=== PATIENT | female | born 1945 | race Caucasian/White ===

== ENCOUNTER → 2018-04-12 | Outpatient (CLI) | payer MEDICARE, OTHER ==
[2018-04-12 12:05] VITALS: BP 154/70; PULSE 68; RESP 18
--- NOTE | 2018-04-12 12:22 | P.PN ---
Progress Note - Text Progress Note Date: 04/12/18 Patient returns for followup for chronic neck pain with radiation to the head, bilateral shoulders, and left arm. Patient was last seen in our clinic in May 2015; she had previous relief with cervical RFA done in 2012 but not with subsequent CESIs and LESIs, and underwent R hip replacement in the meantime. Patient takes only gabapentin for pain with some relief. Patient denies adverse drug effects from medications. Today, pt denies new-onset weakness, bowel/bladder incontinence, or any other signs or symptoms of cauda equina syndrome. There are no signs of acute intoxication, and no indications of medication diversion or overuse. In addition to above, 13-point review of systems is also negative for chest pain , shortness of breath, changes in vision, changes in hearing, new onset weakness , abdominal pain, diarrhea, extreme fatigue, malaise, fever, skin changes, homicidal or suicidal ideation, or bowel or bladder incontinence. Vital Signs: Reviewed in EMR Gen: WDWN, AAOx3, NAD HEENT: NCAT, EOMI, hearing grossly normal Pulm: resp unlabored Abd: soft, NT, ND Neck: supple, trachea midline +cervical facet tenderness bilateral, L > R Imaging: MRI C-spine demonstrates cervical spondylosis at several levels along with right neural foraminal narrowing at C5-C6 level. Assessment: 1. cervical spondylosis with myelopathy 2. cervicogenic headache 3. chronic pain syndrome Plan: 1. Explanation: Opioid and psychological risk scores were reviewed. Diagnoses , prognoses, and multiple treatment options including but not limited to physical therapy, interventional therapies, adjuvant medical therapies, narcotic medication therapies, and surgery were discussed with the patient and all questions were answered to the patient's satisfaction. 2. Opioid agreement: none prescribed 3. Counseling: The patient was counseled extensively on BODY MASS INDEX, EXERCISE. Specifically, the patient was instructed regarding the importance of weight control, and exercise in the context of both chronic pain and overall health. 4. Procedures: cervical MBB bilateral C3-C6 if possible 5. Consultations: None 6. Investigations: UDS not done, MAPS queried and appropriate 7. Medications: none prescribed 8. Morphine equivalents per day prescribed: zero 9. Disposition: f/u for procedure as scheduled PQRS measures: 1-Patient's medications are documented in the chart. 2-Tobacco use is negative 3-Patient has not had a pneumococcal vaccine. 4-Advanced care planning discussed, patient unable to give. 5-Opioid contract NOT signed with the patient. 6-Pain positive, follow-up visit or procedure scheduled 7-Patient's blood pressure measured and documented, and patient will follow up with the primary care due to hypertension. 8-Patient's weight was measured, and body mass index ABOVE the normal limits, and counseling was done. Patient instructed to follow up with PCP. 9-Patient WAS NOT identified as an unhealthy alcohol user.
== END | disposition home or self-care (01) ==
LOC: PNWHC3 11:33
PROVIDERS: ATTEND Anesthesiology
DX: G89.4 Chronic pain syndrome (principal); M54.2 Cervicalgia; M47.12 Other spondylosis with myelopathy, cervical region; R51 Headache; Z96.641 Presence of right artificial hip joint; Z79.891 Long term (current) use of opiate analgesic
CPT/HCPCS: 99211

== ENCOUNTER 2018-04-20 09:19 | Day surgery (SDC) | payer MEDICARE, OTHER ==
[~2018-04-20 09:19] MED LIST: LACTATED RINGERS 1,000 ML IV SCH
[2018-04-20 09:41] VITALS: RESP 18
[2018-04-20 09:47] VITALS: TEMP 97.9
[2018-04-20] MEDS ORDERED: LIDOCAINE 1% 20 ML VIAL (10MG/ML) FOR IV START INTRADERMA ONE (09:47)
[2018-04-20 09:48] LABS: Glucose,Whole Blood 90 mg/dL (75-99)
[2018-04-20] MEDS ORDERED: IV FLUID CONTINUATION 1,000 ML IV ONE (10:26)
[2018-04-20 10:27] VITALS: BP 125/77; PULSE 74
--- NOTE | 2018-04-20 10:47 | FL ---
EXAMINATION TYPE: FL guided pain mgmt statistic DATE OF EXAM: 04/20/2018 CLINICAL HISTORY: Neck pain. TECHNIQUE: Fluoroscopy. COMPARISON: None. FINDINGS: Fluoroscopic guidance was provided during pain relief procedure performed by Dr. Chacko . A total of 19 seconds of fluoroscopic time was utilized during the procedure and 3 spot images are a cquired. Images acquired shows needle localization in the cervical spine. IMPRESSION: As Above.
--- NOTE | 2018-04-25 09:06 | P.PCN ---
Date of Procedure: 04/20/18 Description of Procedure: Diagnostic C3, C4, C5, C6 bilateral medial branch block Date of the procedure: PREOPERATIVE DIAGNOSIS: Cervical spondylosis POSTOPERATIVE DIAGNOSIS: Cervical spondylosis PROCEDURE: Diagnostic C3, C4, C5, C6 bilateral medial branch block Surgeon: Ginna ANESTHESIA: Local with 1% lidocaine; IV sedation with Versed mg and Fentanyl mcg. EBL: Minimal COMPLICATION: None. IV FLUIDS: 100 mL of normal saline. PROCEDURE INDICATION: Chronic low back pain secondary to Facet arthropathy unresponsive to conservative treatment. PROCEDURE DESCRIPTION: The patient was seen and identified in the preoperative area. Risks, benefits, complications, and alternatives were discussed with the patient. The patient agreed to proceed with the procedure and signed the consent. IV was started. Vital signs were stable throughout the procedure. The patient was taken to the procedure room and was placed in the prone position on the procedure table. The cervical spine area was prepped and draped in the usual sterile fashion. Critical pause was taken. Using lateral fluoroscopy, the C3, C4, C5, C6, vertebra were identified, the trapezoid at each vertebral level were then identified and marked. Subsequently , a 25-gauge, 3.5-inch spinal needle was advanced under fluoroscopic guidance until contact was made with periosteum in the middle of the trapezoid of C3, C4 , C5, C6. At this point, 1 mL of block solution containing a mixture of dexamethasone 10 mg and 5 mL of 0.5% preservative-free Bupivacaine was injected after negative aspiration for blood and CSF and blood and in the absence of paresthesias. The needle was subsequently removed and the same procedure was repeated at all levels bilateral. At the end of the procedure, skin was cleansed, and bandages were applied. The patient tolerated the procedure well without complications. Patient was observed in the recovery area until he/she met all discharge criteria. VAS preoperative: 6/10 VAS postop: 0/10
== END 2018-04-20 10:50 | disposition home or self-care (01) ==
LOC: ORPAIN 09:19
PROVIDERS: ATTEND Anesthesiology
DX: M47.812 Spondylosis without myelopathy or radiculopathy, cervical region (principal); G89.29 Other chronic pain; M54.5 Low back pain; M46.90 Unspecified inflammatory spondylopathy, site unspecified; Z88.1 Allergy status to other antibiotic agents; Z91.040 Latex allergy status; Z88.5 Allergy status to narcotic agent; Z88.8 Allergy status to other drugs, medicaments and biological substances; Z91.048 Other nonmedicinal substance allergy status
CPT/HCPCS: 64490; 64491; 64492; J2250; J1100; 99152

== ENCOUNTER 2018-05-09 07:29 | Day surgery (SDC) | payer MEDICARE, OTHER ==
[2018-05-03 15:11] VITALS: BMI 25.4
--- NOTE | 2018-05-09 08:31 | P.HPIM ---
History of Present Illness H&P Date: 05/09/18 72-year-old female presents for bilateral cervical medial branch blocks secondary to cervical spondylosis. VAS 6/10 severity bilateral positive Spurling test Review of Systems 14 point review of system was done positive for fatigue, neck pain. Past Medical History Past Medical History: Fibromyalgia, GERD/Reflux, Musculoskeletal Disorder, Osteoarthritis (OA), Seizure Disorder, Thyroid Disorder Additional Past Medical History / Comment(s): Ringing in ears, Thyroid nodules, Hypoglycemia, migraines, enlarged aorta, sinus problems, ibs, endometriosis, fibroids, back pain, last seizure 2005 History of Any Multi-Drug Resistant Organisms: None Reported Past Surgical History: Breast Surgery, Cholecystectomy, Hysterectomy, Orthopedic Surgery Additional Past Surgical History / Comment(s): sinus, colonoscopy, laparoscopy , D&C, carpal tunnel Right, arthroscopic bilateral knees, galen Knee replacement- rt knee x2, Right rotator cuff, Bilateral mastectomy, pain clinic procedures. rt. hip. arthropscopy, prolapsed urethra surg./rt hip replacement/c spine fusion Past Anesthesia/Blood Transfusion Reactions: No Reported Reaction Smoking Status: Never smoker Medications and Allergies Home Medications Medication Instructions Recorded Confirmed Type Aspirin 81 mg PO DAILY 04/23/14 05/03/18 History Multivitamin [Children's 1 tab PO DAILY 04/23/14 05/03/18 History Multivitamins] Simvastatin [Zocor] 40 mg PO HS 04/23/14 05/03/18 History Cetirizine HCl [Zyrtec] 10 mg PO DAILY PRN 05/23/14 05/03/18 History [place]-3 Fatty Acids [[place]-3] 1,000 mg PO BID 05/23/14 05/03/18 History Estradiol Cream [Estrace Cream] 1 cream TOPICAL Q3D 02/24/15 05/03/18 History Magnesium 400 mg PO DAILY 03/03/15 05/03/18 History Gabapentin [Neurontin] 300 mg PO BID 04/12/18 05/03/18 History Pramipexole [Mirapex] 0.5 mg PO DAILY 04/12/18 05/03/18 History Allergies Allergy/AdvReac Type Severity Reaction Status Date / Time erythromycin base Allergy Nausea Verified 05/03/18 15:06 [Erythromycin Base] topiramate [From Topamax] Allergy Itching Verified 05/03/18 15:06 codeine AdvReac Hallucinati Verified 05/03/18 15:06 ons Latex, Natural Rubber AdvReac Rash/Hives Verified 05/03/18 15:06 nortriptyline HCl AdvReac tremors Verified 05/03/18 15:06 [From Pamelor] pregabalin [From Lyrica] AdvReac very Verified 05/03/18 15:06 sleepy feeling tramadol AdvReac Unknown Verified 05/03/18 15:06 TRACE METALS Allergy PAIN AND Uncoded 05/03/18 15:06 SWELLING OF TISSUES TO KNEE WITH TOT KNEE REPLACE. morphine IM AdvReac red Uncoded 05/03/18 15:06 streaking @site tape AdvReac Rash/Hives Uncoded 05/03/18 15:06 Physical Exam - Respiratory Respiratory: negative: CTA - Cardiovascular Rhythm: regular Heart sounds: normal: S1, S2 Assessment and Plan Assessment: Assessment: Cervical spondylosis Plan: Bilateral medial branch block of the cervical spine
--- NOTE | 2018-05-09 08:33 | P.PCN ---
Date of Procedure: 05/09/18 Description of Procedure: Description of Procedure: Diagnostic C3, C4, C5, C6 bilateral medial branch block Date of the procedure: PREOPERATIVE DIAGNOSIS: Cervical spondylosis POSTOPERATIVE DIAGNOSIS: Cervical spondylosis PROCEDURE: Diagnostic C3, C4, C5, C6 bilateral medial branch block Surgeon: MD Ginna. ANESTHESIA: Local with 1% lidocaine; IV sedation with Versed 1 mg and Fentanyl 50 mcg. EBL: Minimal COMPLICATION: None. IV FLUIDS: 100 mL of normal saline. PROCEDURE INDICATION: Chronic low back pain secondary to Facet arthropathy unresponsive to conservative treatment. PROCEDURE DESCRIPTION: The patient was seen and identified in the preoperative area. Risks, benefits, complications, and alternatives were discussed with the patient. The patient agreed to proceed with the procedure and signed the consent. IV was started. Vital signs were stable throughout the procedure. The patient was taken to the procedure room and was placed in the prone position on the procedure table. The cervical spine area was prepped and draped in the usual sterile fashion. Critical pause was taken. Using lateral fluoroscopy, the C3, C4, C5, C6, vertebra were identified, the trapezoid at each vertebral level were then identified and marked. Subsequently , a 25-gauge, 3.5-inch spinal needle was advanced under fluoroscopic guidance until contact was made with periosteum in the middle of the trapezoid of C3, C4 , C5, C6. At this point, 1 mL of block solution containing a mixture of dexamethasone 10 mg and 5 mL of 0.5% preservative-free Bupivacaine was injected after negative aspiration for blood and CSF and blood and in the absence of paresthesias. The needle was subsequently removed and the same procedure was repeated at all levels bilateral. At the end of the procedure, skin was cleansed, and bandages were applied. The patient tolerated the procedure well without complications. Patient was observed in the recovery area until he/she met all discharge criteria. VAS preoperative: 6/10 VAS postop:
[2018-05-09 08:38] VITALS: RESP 18; TEMP 97
[2018-05-09] MEDS ORDERED: LACTATED RINGERS 1,000 ML IV ONE (08:57)
[2018-05-09] MEDS ORDERED: LIDOCAINE 1% 20 ML VIAL (10MG/ML) FOR IV START INTRADERMA ONE (08:57)
[2018-05-09 09:13] LABS: Glucose,Whole Blood 87 mg/dL (75-99)
--- NOTE | 2018-05-09 10:16 | FL ---
EXAMINATION TYPE: FL guided pain mgmt statistic DATE OF EXAM: 05/09/2018 COMPARISON: NONE HISTORY: Neck pain TECHNIQUE: Fluoroscopy. FINDINGS/IMPRESSION: Fluoroscopic guidance was provided during procedure performed by Dr. Chacko. A total of 10 seconds of fluoroscopic time was utilized during the procedure and 4 spot images was acq uired demonstrating localization of the cervical spine.
[2018-05-09 10:20] VITALS: BP 138/78; PULSE 65
[2018-05-09] MEDS ORDERED: IV FLUID CONTINUATION 1,000 ML IV ONE (10:20)
== END 2018-05-09 10:26 | disposition home or self-care (01) ==
LOC: ORPAIN 07:29
PROVIDERS: ATTEND Anesthesiology
DX: G89.4 Chronic pain syndrome (principal); M47.12 Other spondylosis with myelopathy, cervical region; I10 Essential (primary) hypertension; M79.7 Fibromyalgia; K21.9 Gastro-esophageal reflux disease without esophagitis; M19.90 Unspecified osteoarthritis, unspecified site; G40.909 Epilepsy, unspecified, not intractable, without status epilepticus; E04.1 Nontoxic single thyroid nodule; G43.909 Migraine, unspecified, not intractable, without status migrainosus; Z96.653 Presence of artificial knee joint, bilateral; Z96.641 Presence of right artificial hip joint; Z79.899 Other long term (current) drug therapy; Z79.82 Long term (current) use of aspirin; Z88.1 Allergy status to other antibiotic agents; Z88.8 Allergy status to other drugs, medicaments and biological substances; Z91.048 Other nonmedicinal substance allergy status
CPT/HCPCS: 64490; 64491; 64492; J2250; J3301; 99152

== ENCOUNTER → 2018-05-29 | Outpatient (CLI) | payer MEDICARE, OTHER ==
[2018-05-29 12:23] VITALS: BP 143/73; PULSE 72; RESP 20
--- NOTE | 2018-05-29 12:35 | P.PN ---
Subjective This is a 72-year-old female with history of neck pain with radiation to the shoulders and down the left arm to the hand. She is numbness in the left hand.. She had complete relief of pain for at least 2 days after the last cervical medial branch block. Patient denies adverse drug effects from medications. Today, pt denies new- onset weakness, bowel/bladder incontinence, or any other signs or symptoms of cauda equina syndrome. There are no signs of acute intoxication, and no indications of medication diversion or overuse. In addition to above, 13-point review of systems is also negative for chest pain , shortness of breath, changes in vision, changes in hearing, new onset weakness , abdominal pain, diarrhea, extreme fatigue, malaise, fever, skin changes, homicidal or suicidal ideation, or bowel or bladder incontinence. Vital Signs: Reviewed in EMR Gen: WDWN, AAOx3, NAD HEENT: NCAT, EOMI, hearing grossly normal Pulm: resp unlabored Neuro exam of the upper extremities showed normal and symmetrical muscle strength but absent deep tendon reflexes symmetrically She has tenderness in the mid thoracic and upper lumbar paravertebral musculature Neck: supple, trachea midline +cervical facet tenderness bilateral, L > R Imaging: MRI C-spine demonstrates cervical spondylosis at several levels along with right neural foraminal narrowing at C5-C6 level. Assessment: 1. cervical spondylosis with myelopathy 2. cervicogenic headache 3. chronic pain syndrome Plan: 1. Explanation: Opioid and psychological risk scores were reviewed. Diagnoses , prognoses, and multiple treatment options including but not limited to physical therapy, interventional therapies, adjuvant medical therapies, narcotic medication therapies, and surgery were discussed with the patient and all questions were answered to the patient's satisfaction. 2. Opioid agreement: none prescribed 3. Counseling: The patient was counseled extensively on BODY MASS INDEX, EXERCISE. Specifically, the patient was instructed regarding the importance of weight control, and exercise in the context of both chronic pain and overall health. 4. Procedures: For left cervical medial branch RFA under fluoroscopic guidance for the levels tested previouslyC3 to C6. Also we will do trigger point injection in the lower thoracic and lumbar paravertebral musculature. 5. Consultations: None 6. Investigations: UDS not done, MAPS queried and appropriate 7. Medications: none prescribed 8. Morphine equivalents per day prescribed: zero 9. Disposition: f/u for procedure as scheduled PQRS measures: 1-Patient's medications are documented in the chart. 2-Tobacco use is negative 3-Patient has not had a pneumococcal vaccine. 4-Advanced care planning discussed, patient unable to give. 5-Opioid contract NOT signed with the patient. 6-Pain positive, follow-up visit or procedure scheduled 7-Patient's blood pressure measured and documented, and patient will follow up with the primary care due to hypertension. 8-Patient's weight was measured, and body mass index ABOVE the normal limits, and counseling was done. Patient instructed to follow up with PCP. 9-Patient WAS NOT identified as an unhealthy alcohol user. Objective - Vital Signs Vital signs: Vital Signs Temp Pulse 72 05/29/18 12:19 Resp 20 05/29/18 12:19 BP 143/73 05/29/18 12:19 Pulse Ox 99 05/29/18 12:19 Intake & Output 05/28/18 05/29/18 05/29/18 18:59 06:59 18:59 Weight 67.132 kg
== END | disposition home or self-care (01) ==
LOC: PNWHC3 12:08
PROVIDERS: ATTEND Anesthesiology
DX: G89.4 Chronic pain syndrome (principal); M47.12 Other spondylosis with myelopathy, cervical region; R51 Headache
CPT/HCPCS: 99211

== ENCOUNTER 2018-06-08 06:23 | Day surgery (SDC) | payer MEDICARE, OTHER ==
[2018-06-06 09:27] VITALS: BMI 25.4
[2018-06-08 06:54] VITALS: RESP 16; TEMP 97.8
[2018-06-08] MEDS ORDERED: LIDOCAINE 1% 20 ML VIAL (10MG/ML) FOR IV START INTRADERMA ONE (06:56)
[2018-06-08 07:11] LABS: Glucose,Whole Blood 93 mg/dL (75-99)
--- NOTE | 2018-06-08 07:47 | FL ---
Fluoroscopy INDICATION: Pain FINDINGS: Fluoroscopy time: 16 seconds. Images obtained: 2. IMPRESSIONS: 1. Documentation of fluoroscopy.
--- NOTE | 2018-06-08 07:50 | P.PCN ---
Date of Procedure: 06/08/18 Surgeon: Alyson Blue Pathology: none sent Condition: stable Disposition: PACU Description of Procedure: PREOPERATIVE DIAGNOSIS: Cervical spondylosis with Facet Arthropathy without myelopathy, myofascial pain POSTOPERATIVE DIAGNOSIS: Cervical spondylosis with Facet Arthropathy without myelopathy, myofascial pain PROCEDURES: left Radiofrequency thermocoagulation, C3,C4,C5, and C6, medial branch with Fluroscopy [place]. Trigger point injection in the cervical thoracic and lumbar paravertebral musculature ANESTHESIA: Local with 1% lidocaine; IV sedation with fentanyl and Versed. EBL: Minimal PROCEDURE INDICATION: The patient with neck pain secondary to cervical arthropathy who had more than 50% relief of her pain with previous diagnostic cervical medial branch block. PROCEDURE DESCRIPTION / TECHNIQUE: The patient was seen and identified in the preoperative area. Risks, benefits, complications, and alternatives were discussed with the patient, the patient agreed to proceed with the procedure and signed the consent. IV was started. Vital signs remained stable throughout the procedure. Patient was taken to the OR and time out was completed. The patient was placed in the prone position on the procedure table. A pillow was placed under the patients chest to increase the cervical interlaminar space. The cervical area was prepped and draped in the usual sterile fashion. Critical pause was taken. Vital signs were closely monitored during the procedure. Conscious sedation was used during the procedure to decrease patients anxiety. Using cross-table lateral fluoroscopy, the center of the trapezoid-shaped cervical pillars of C3,C4, C5, and C6 on the left side were identified, marked , and localized with 1% lidocaine. Subsequently, a 20 [id number] radiofrequency cannula with a 10-mm active tip was advanced guided by fluoroscopy to the target points mentioned above. . Each site then underwent motor testing at 2 Hz and 0 to 3 volt with local stimulation, but no radicular symptoms down the arm. Thereafter C5 ,C6 and C7 sites underwent radiofrequency thermocoagulation at 80 degrees celsius for 90 seconds after injecting 0.5 ml of PF lidocaine 1%. After thermocoagulation, 1 ml of the block solution containing Kenalog 40 mg mg and 2 mL of preservative-free normal saline was injected at the C3,C4,C5,and C6 levels after negative aspiration of CSF and blood and with no paresthesias. Cannulas were retracted. Skin was cleansed and bandages were applied. Then I turned my attention into doing the trigger point injections in the right trapezius muscle and right cervical paravertebral musculature and right thoracic paravertebral musculature and right lumbar paravertebral musculature with a total of 10 of these trigger points I gave 1 mL of ropivacaine at each trigger point with 2 mg of Kenalog. COMPLICATIONS: No acute complications. COMMENTS: DISPOSITION / PLANS: The patient was placed in a supine position and transferred to the recovery area in a stable condition for observation and was discharged from the recovery room after meeting discharge criteria. Home discharge instructions given to the patient by the staff. The patient was reexamined prior to discharge.
[2018-06-08] MEDS ORDERED: IV FLUID CONTINUATION 1,000 ML IV ONE (07:54)
[2018-06-08 08:19] VITALS: BP 123/73; PULSE 54
== END 2018-06-08 08:28 | disposition home or self-care (01) ==
LOC: ORPAIN 06:23
PROVIDERS: ATTEND Anesthesiology
DX: M47.812 Spondylosis without myelopathy or radiculopathy, cervical region (principal); M79.1 Myalgia; I44.7 Left bundle-branch block, unspecified; K21.9 Gastro-esophageal reflux disease without esophagitis; K58.9 Irritable bowel syndrome, unspecified; E16.2 Hypoglycemia, unspecified; Z88.5 Allergy status to narcotic agent; Z88.8 Allergy status to other drugs, medicaments and biological substances; Z88.1 Allergy status to other antibiotic agents; Z91.040 Latex allergy status
CPT/HCPCS: 20553; 64633; 64634; J2250; J3301; J3010; 99152; 99153

== ENCOUNTER 2018-06-22 07:24 | Day surgery (SDC) | payer MEDICARE, OTHER ==
[2018-06-15 11:26] VITALS: BMI 25.4
[2018-06-22] MEDS ORDERED: LIDOCAINE 1% 20 ML VIAL (10MG/ML) FOR IV START INTRADERMA ONE (08:05)
[2018-06-22 08:13] VITALS: RESP 16; TEMP 97.6
--- NOTE | 2018-06-22 09:20 | P.PCN ---
Date of Procedure: 06/22/18 Procedure(s) Performed: PREOPERATIVE DIAGNOSIS: 1-Cervical spondylosis with Facet Arthropathy without myelopathy. 2-myofascial pain syndrome Thoracic and lumbar area. POSTOPERATIVE DIAGNOSIS: same as pre op Diagnosis. PROCEDURES: Radiofrequency thermocoagulation, Right C3, C4, C5, C6 medial branch with Fluroscopy [place] Trigger point injections right side thoracic and lumbar paravertebral muscles total of 6 trigger point injected. ANESTHESIA: Local with 1% lidocaine 4 ml , moderate sedation with fentanyl 100 micrograms and Versed 1 mg EBL: Minimal PROCEDURE INDICATION: The patient with neck pain secondary to cervical arthropathy who had more than 50% relief of her pain with previous diagnostic cervical medial branch block. PROCEDURE DESCRIPTION / TECHNIQUE: The patient was seen and identified in the preoperative area. Risks, benefits, complications, and alternatives were discussed with the patient, the patient agreed to proceed with the procedure and signed the consent. IV was started. Vital signs remained stable throughout the procedure. Patient was taken to the OR and time out was completed. The patient was placed in the prone position on the procedure table. A pillow was placed under the patients chest to increase the cervical interlaminar space. The cervical area was prepped and draped in the usual sterile fashion. Critical pause was taken. Vital signs were closely monitored during the procedure. Conscious sedation was used during the procedure to decrease patients anxiety. Using cross-table lateral fluoroscopy, the centroid of the trapezoid of right C3, C4, C5, and C6 were identified, marked, and localized with 1% lidocaine. Subsequently, a 20 -we radiofrequency cannula with a 10-mm active tip was advanced guided by fluoroscopy to the centroid of the trapezoid of C3, C4, C5, and C6 . Needle tip position was confirmed at the centroid of the trapezoids of C3, C4, C5, and C6 with anteroposterior fluoroscopy. Each site then underwent sensory testing at 50 Hz and 0 to 1 volt and motor testing at 2 Hz and 0 to 3 volt with local stimulation, but no radicular symptoms down the arm. Thereafter C3, C4,C5 and C6 sites underwent radiofrequency thermocoagulation at 80 degrees celsius for 90 seconds after injecting 0.5 ml of PF Ropivacaine 0.5 %. After thermocoagulation, 1 ml of the block solution containing Kenalog 40 mg and 5 mL of preservative-free normal saline was injected at the C3, C4, C5, and C6 levels after negative aspiration of CSF and blood and with no paresthesias. Cannulas were retracted while injecting lidocaine 1% until the needle is out. Skin was cleansed and bandages were applied. The trigger point injections done in steril technique, the thoracic and lumbar area on the right side prepped with chlorhexidine 3, and each of the trigger point injected with Ropivacaine 0.5 % 1.5 ml injected at each trigger point after negative aspiration, using 25-gauge needle, total of 6 trigger points injected on the right side thoracic and lumbar paravertebral muscles. COMPLICATIONS: No acute complications. DISPOSITION / PLANS: The patient was placed in a supine position and transferred to the recovery area in a stable condition for observation and was discharged from the recovery room after meeting discharge criteria. Home discharge instructions given to the patient by the staff. The patient was reexamined prior to discharge. The patient will schedule a follow up in the clinic in 2-4 weeks.
[2018-06-22] MEDS ORDERED: IV FLUID CONTINUATION 600 ML IV ONE (09:21)
--- NOTE | 2018-06-22 09:42 | FL ---
EXAMINATION TYPE: FL guided pain mgmt statistic DATE OF EXAM: 06/22/2018 COMPARISON: NONE HISTORY: Neck pain TECHNIQUE: Fluoroscopy. FINDINGS/IMPRESSION: Fluoroscopic guidance was provided during procedure performed by Dr. Aviles. A total of 10 seconds of fluoroscopic time was utilized during the procedure and 2 spot images was a cquired.
[2018-06-22 09:55] VITALS: BP 159/82; PULSE 60
== END 2018-06-22 10:00 | disposition home or self-care (01) ==
LOC: ORPAIN 07:24
PROVIDERS: ATTEND Specialist
DX: M47.812 Spondylosis without myelopathy or radiculopathy, cervical region (principal); M79.1 Myalgia; E16.2 Hypoglycemia, unspecified; Z88.5 Allergy status to narcotic agent; Z88.1 Allergy status to other antibiotic agents; Z91.040 Latex allergy status; Z88.8 Allergy status to other drugs, medicaments and biological substances; Z91.048 Other nonmedicinal substance allergy status; Z85.3 Personal history of malignant neoplasm of breast
CPT/HCPCS: 20553; 64633; 64634; J1030; J3010; 99152; 99153

== ENCOUNTER → 2018-07-27 | Outpatient (CLI) | payer MEDICARE, OTHER ==
[2018-07-27 14:50] VITALS: BP 128/60; PULSE 76; RESP 16
--- NOTE | 2018-07-29 05:36 | P.PN ---
Subjective Progress Note Date: 07/27/18 This is a follow-up visit for this 72 years old female, with a history of severe chronic neck pain secondary to cervical spondylosis, with the radiofrequency ablation of the cervical medial branch, she has done very well and her pain improved significantly, and activity of daily livings improved after the radiofrequency, she denies any motor or sensory deficit, she uses ibuprofen for breakthrough pain, she continued to use Neurontin 600 twice a day , she denies any side effect of the medication Objective - Vital Signs Vital signs: Vital Signs Temp Pulse 76 07/27/18 14:40 Resp 16 07/27/18 14:40 BP 128/60 07/27/18 14:40 Pulse Ox 98 07/27/18 14:40 - Exam Physical Examinations : 1-Constitutiona : Cooperative , not in acute distress . 2-HEENT : nech ; supple , no Lymphadenopathy , normal thyroid size . 3- musculoskeltal : Cervical Spine : Full range of motion Assessment and Plan Assessment: Assessment and plan= chronic neck pain secondary to cervical spondylosis pain improved after radiofrequency ablation of the medial branches cervical area She will follow up with the pain clinic when necessary Time with Patient: Less than 30
== END ==
LOC: PNWHC3 14:21
PROVIDERS: ATTEND Specialist
DX: G89.29 Other chronic pain (principal); M47.812 Spondylosis without myelopathy or radiculopathy, cervical region; Z98.890 Other specified postprocedural states; Z79.899 Other long term (current) drug therapy
CPT/HCPCS: 99211

== ENCOUNTER → 2024-05-17 | Outpatient (CLI) | payer MEDICARE, OTHER ==
[2024-05-17 18:28] LABS: HCT 40.5 % (37.2-46.3); HGB 12.7 g/dL (12.0-15.0); MCH 28.6 pg (27.0-32.0); MCHC 31.4 g/dL (32.0-37.0); MCV 91.2 FL (80.0-97.0); Mean Platelet Volume 9.5 FL (9.5-12.2); NRBC Per 100 WBC 0 X 10*3/uL (0.00-0.01); Platelet Count 183 X 10*3/uL (140-440); RBC 4.44 X 10*6/uL (4.10-5.20); RDW 14.4 % (11.5-14.5); WBC 4.69 X 10*3/uL (4.50-10.00)
[2024-05-17 19:21] LABS: ALT 53 U/L (8-44); AST 53 U/L (13-35); Albumin 4.3 g/dL (3.8-4.9); Albumin/Globulin Ratio 1.79 Ratio (1.60-3.17); Alkaline Phosphatase 97 U/L (41-126); BUN/Creat Ratio 19.29 Ratio (12.00-20.00); Blood Urea Nitrogen 13.5 mg/dL (9.0-27.0); Calcium 8.7 mg/dL (8.7-10.3); Carbon Dioxide 26.2 mmol/L (21.6-31.8); Chloride 103 mmol/L (96-109); Globulin 2.4 g/dL (1.6-3.3); Glucose 99 mg/dL (70-110); Potassium 3.9 mmol/L (3.5-5.5); Sodium 141 mmol/L (135-145); Total Bilirubin 0.4 mg/dL (0.3-1.2); Total Protein 6.7 g/dL (6.2-8.2)
== END | disposition home or self-care (01) ==
LOC: LABWHC1 14:59
PROVIDERS: ATTEND Internal Medicine Interventional Cardiology
DX: I10 Essential (primary) hypertension (principal)
CPT/HCPCS: 36415; 80053; 85027

== ENCOUNTER 2024-05-18 23:35 | Inpatient (IN) | payer MEDICARE, OTHER ==
--- NOTE | 2024-05-19 00:16 | ED ---
General Adult HPI - General Chief complaint: Recheck/Abnormal Lab/Rx Stated complaint: Cellulitis Time Seen by Provider: 05/18/24 23:50 Source: patient, EMS Mode of arrival: EMS Limitations: no limitations - History of Present Illness Initial comments: 78-year-old female presents to our emergency department as a transfer from [facility] for possible pacemaker site infection. Patient states that she noticed around 2 days ago with worsening redness around her pacemaker. She states that this prompted her to go to her [facility] office where her pacemaker was evaluated and was functioning properly. She reports that no intervention was taken at that time. She notes symptoms worsened today and this caused her to go to [facility]. She was provided vancomycin at their facility. She also underwent a CT scan showing no abscess formation. She did test positive for COVID-19 infection at their facility. She denies recent f ever, chills. - Related Data Home Medications Medication Instructions Recorded Confirmed Amoxicillin 875 mg PO Q12HR 05/19/24 05/19/24 Atorvastatin [Lipitor] 80 mg PO HS 05/19/24 05/19/24 Clopidogrel [Plavix] 75 mg PO DAILY 05/19/24 05/19/24 Montelukast [Singulair] 10 mg PO HS 05/19/24 05/19/24 Pantoprazole Sodium [Protonix] 40 mg PO DAILY 05/19/24 05/19/24 Pramipexole [Mirapex] 2 mg PO HS 05/19/24 05/19/24 amLODIPine [Norvasc] 2.5 mg PO DAILY 05/19/24 05/19/24 Allergies Allergy/AdvReac Type Severity Reaction Status Date / Time erythromycin base Allergy Nausea Verified 05/19/24 09:40 [Erythromycin Base] topiramate [From Topamax] Allergy Itching Verified 05/19/24 09:40 codeine AdvReac Hallucinati Verified 05/19/24 09:40 ons Latex, Natural Rubber AdvReac Rash/Hives Verified 05/19/24 09:40 nortriptyline HCl AdvReac tremors Verified 05/19/24 09:40 [From Pamelor] pregabalin [From Lyrica] AdvReac very Verified 05/19/24 09:40 sleepy feeling tramadol AdvReac Unknown Verified 05/19/24 09:40 TRACE METALS Allergy PAIN AND Uncoded 05/19/24 09:40 SWELLING OF TISSUES TO KNEE WITH TOT KNEE REPLACE. morphine IM AdvReac red Uncoded 05/19/24 09:40 streaking @site tape AdvReac Rash/Hives Uncoded 05/19/24 09:40 Review of Systems ROS Statement: Those systems with pertinent positive or pertinent negative responses have been documented in the HPI. ROS Other: All systems not noted in ROS Statement are negative. Past Medical History Past Medical History: Cancer, Fibromyalgia, GERD/Reflux, Musculoskeletal Disorder, Osteoarthritis (OA), Seizure Disorder Additional Past Medical History / Comment(s): Ringing in ears, Thyroid nodules, Hypoglycemia, migraines, sinus problems, ibs, endometriosis, back pain, last seizure 2005, BREAST CANCER History of Any Multi-Drug Resistant Organisms: None Reported Past Surgical History: Breast Surgery, Cholecystectomy, Hysterectomy, Joint Replacement, Orthopedic Surgery Additional Past Surgical History / Comment(s): sinus surgery,colonoscopy , laparoscopy, D&C, carpal tunnel Right, arthroscopic bilateral knees, galen Knee replacement-rt knee x2, Right rotator cuff, Bilateral mastectomy, pain clinic procedures. rt. hip -arthroscopic , prolapsed urethra surg./rt hip replacement/c spine fusion, Pacemaker 04/30 Past Anesthesia/Blood Transfusion Reactions: No Reported Reaction Past Psychological History: No Psychological Hx Reported Smoking Status: Never smoker Past Alcohol Use History: Occasional Past Drug Use History: None Reported - Past Family History Mother Family Medical History: No Reported History Daughter(s) Family Medical History: Cancer Additional Family Medical History / Comment(s): brain cancer General Exam Limitations: no limitations General appearance: alert, in no apparent distress Head exam: Present: atraumatic, normocephalic, normal inspection Eye exam: Present: normal appearance, PERRL, EOMI. Absent: scleral icterus, conjunctival injection, periorbital swelling Respiratory exam: Present: normal lung sounds bilaterally. Absent: respiratory distress, wheezes, rales, rhonchi, stridor Cardiovascular Exam: Present: regular rate, normal rhythm, normal heart sounds, other (ecchymosis and erythema to skin external to pacemaker). Absent: systolic murmur, diastolic murmur, rubs, gallop, clicks Neurological exam: Present: alert, oriented X3 Psychiatric exam: Present: normal affect, normal mood Skin exam: Present: warm, dry, intact, erythema. Absent: normal color, rash Course Vital Signs 05/18/24 05/19/24 05/19/24 23:38 00:00 01:00 Temperature 97.9 F Pulse Rate 68 60 65 Respiratory 18 18 12 Rate Blood Pressure 168/70 168/70 130/65 O2 Sat by Pulse 98 95 95 Oximetry 05/19/24 05/19/24 02:00 02:59 Temperature 98 F Pulse Rate 62 64 Respiratory 18 16 Rate Blood Pressure 127/62 113/62 O2 Sat by Pulse 94 L 95 Oximetry Medical Decision Making - Medical Decision Making Was pt. sent in by a medical professional or institution (, ASHUTOSH, POWER PLANT OPERATOR APPRENTICE, urgent care, hospital, or fdc...) When possible be specific @ -Patient was transferred from [facility] Did you speak to anyone other than the patient for history (EMS, parent, family, police, friend...)? What history was obtained from this source @ -No Did you review nursing and triage notes (agree or disagree)? Why? @ -I reviewed and agree with nursing and triage notes Were old charts reviewed (outside hosp., previous admission, EMS record, old EKG, old radiological studies, urgent care reports/EKG's, fdc records)? Report findings @ -Records from [facility] where reviewed Differential Diagnosis (chest pain, altered mental status, abdominal pain women, abdominal pain men, vaginal bleeding, weakness, fever, dyspnea, syncope, headache, dizziness, GI bleed, back pain, seizure, CVA, palpatations, mental health, musculoskeletal)? @ -Cellulitis, abscess, postop complication, this list is not all. EKG interpreted by me (3pts min.). @ -None X-rays interpreted by me (1pt min.). @ -None done CT interpreted by me (1pt min.). @ -None done U/S interpreted by me (1pt. min.). @ -None done What testing was considered but not performed or refused? (CT, X-rays, U/S, labs)? Why? @ -None What meds were considered but not given or refused? Why? @ - Did you discuss the management of the patient with other professionals (professionals i.e. ASHUTOSH Hendrix, POWER PLANT OPERATOR APPRENTICE, lab, RT, psych nurse, delinquency prevention social worker, rand butting machine operator, teacher, credit compliance officer, catalytic case operator)? Give summary @ -Case discussed with [facility] Was smoking cessation discussed for >3mins.? @ -No Was critical care preformed (if so, how long)? @ -No Were there social determinants of health that impacted care today? How? (Homelessness, low income, unemployed, alcoholism, drug addiction, transportation, low edu. Level, literacy, decrease access to med. care, half-way, rehab)? @ -No Was there de-escalation of care discussed even if they declined (Discuss DNR or withdrawal of care, Hospice)? DNR status @ -No What co-morbidities impacted this encounter? (DM, HTN, Smoking, COPD, CAD, Cancer, CVA, ARF, Chemo, Hep., AIDS, mental health diagnosis, sleep apnea, morbid obesity)? @ -None Was patient admitted / discharged? Hospital course, mention meds given and route, prescriptions, significant lab abnormalities, going to OR and other pertinent info. @ -Admitted. Patient presented as transfer from [facility] for redness around pacemaker site. Placed by Dr. Anrett. Records from [facility] reviewed including CT of the chest not revealing any significant abscess formation. She was given vancomycin at [facility]. Patient will be admitted for IV antibiotics and cardiology consultation. Undiagnosed new problem with uncertain prognosis? @ -No Drug Therapy requiring intensive monitoring for toxicity (Heparin, Nitro, Insulin, Cardizem)? @ -No Were any procedures done? @ -No Diagnosis/symptom? @ -Cellulitis, post op complication Acute, or Chronic, or Acute on Chronic? @ -acute Uncomplicated (without systemic symptoms) or Complicated (systemic symptoms)? @ -uncomplicated Side effects of treatment? @ -No Exacerbation, Progression, or Severe Exacerbation? @ -No Poses a threat to life or bodily function? How? (Chest pain, [place], [place], pneumonia, PE, COPD, DKA, ARF, appy, cholecystitis, CVA, Diverticulitis, Homicidal, Suicidal, threat to staff... and all critical care pts) @ -No - Lab Data Result diagrams: 05/23/24 05:41 05/23/24 09:19 Lab Results 05/19/24 05/19/24 05/19/24 Range/Units 00:24 00:24 00:24 WBC 4.1 (3.8-10.6) k/uL RBC 4.07 (3.80-5.40) m/uL Hgb 11.7 (11.4-16.0) gm/dL Hct 36.9 (34.0-46.0) % MCV 90.5 (80.0-100.0) fL MCH 28.8 (25.0-35.0) pg MCHC 31.8 (31.0-37.0) g/dL RDW 13.8 (11.5-15.5) % Plt Count 171 (150-450) k/uL MPV 7.2 Immature Gran % (Auto) % Absolute Nucleated RBC % Neutrophils % 56 % Lymphocytes % 28 % Monocytes % 9 % Eosinophils % 4 % Basophils % 1 % Immature Gran # (0.00-0.04) X 10*3/uL Neutrophils # 2.3 (1.3-7.7) k/uL Lymphocytes # 1.2 (1.0-4.8) k/uL Monocytes # 0.4 (0-1.0) k/uL Eosinophils # 0.1 (0-0.7) k/uL Basophils # 0.0 (0-0.2) k/uL NRBC/100 WBC Diff (0.00-0.01) X 10*3/uL ESR (0-30) mm/Hr PT 10.5 (10.0-12.5) sec INR 0.9 (<1.2) APTT 23.6 (22.0-30.0) sec Sodium 138 (137-145) mmol/L Potassium 3.8 (3.5-5.1) mmol/L Chloride 109 H (98-107) mmol/L Carbon Dioxide 26 (22-30) mmol/L Anion Gap 3 mmol/L BUN 9 (7-17) mg/dL Creatinine 0.43 L (0.52-1.04) mg/dL Est GFR (CKD-EPI) (>=60) Est GFR (CKD-EPI)AfAm >90 (>60 ml/min/1.73 sqM) Est GFR (CKD-EPI)NonAf >90 (>60 ml/min/1.73 sqM) BUN/Creatinine Ratio (12.00-20.00) Ratio Glucose 89 (74-99) mg/dL Plasma Lactic Acid James (0.7-2.0) mmol/L Calcium 8.7 (8.4-10.2) mg/dL Total Bilirubin 0.6 (0.2-1.3) mg/dL AST 50 H (14-36) U/L ALT 48 H (4-34) U/L Alkaline Phosphatase 81 (38-126) U/L C-Reactive Protein (0.00-0.80) mg/dL Total Protein 5.7 L (6.3-8.2) g/dL Albumin 3.4 L (3.5-5.0) g/dL Globulin (1.6-3.3) g/dL Albumin/Globulin Ratio (1.60-3.17) Ratio Procalcitonin (0.02-0.09) ng/mL Vancomycin Trough ug/mL 05/19/24 05/19/24 05/19/24 Range/Units 02:04 10:58 10:58 WBC (3.8-10.6) k/uL RBC (3.80-5.40) m/uL Hgb (11.4-16.0) gm/dL Hct (34.0-46.0) % MCV (80.0-100.0) fL MCH (25.0-35.0) pg MCHC (31.0-37.0) g/dL RDW (11.5-15.5) % Plt Count (150-450) k/uL MPV Immature Gran % (Auto) % Absolute Nucleated RBC % Neutrophils % % Lymphocytes % % Monocytes % % Eosinophils % % Basophils % % Immature Gran # (0.00-0.04) X 10*3/uL Neutrophils # (1.3-7.7) k/uL Lymphocytes # (1.0-4.8) k/uL Monocytes # (0-1.0) k/uL Eosinophils # (0-0.7) k/uL Basophils # (0-0.2) k/uL NRBC/100 WBC Diff (0.00-0.01) X 10*3/uL ESR 31 H (0-30) mm/Hr PT (10.0-12.5) sec INR (<1.2) APTT (22.0-30.0) sec Sodium (137-145) mmol/L Potassium (3.5-5.1) mmol/L Chloride (98-107) mmol/L Carbon Dioxide (22-30) mmol/L Anion Gap mmol/L BUN (7-17) mg/dL Creatinine (0.52-1.04) mg/dL Est GFR (CKD-EPI) (>=60) Est GFR (CKD-EPI)AfAm (>60 ml/min/1.73 sqM) Est GFR (CKD-EPI)NonAf (>60 ml/min/1.73 sqM) BUN/Creatinine Ratio (12.00-20.00) Ratio Glucose (74-99) mg/dL Plasma Lactic Acid James 0.7 (0.7-2.0) mmol/L Calcium (8.4-10.2) mg/dL Total Bilirubin (0.2-1.3) mg/dL AST (14-36) U/L ALT (4-34) U/L Alkaline Phosphatase (38-126) U/L C-Reactive Protein (0.00-0.80) mg/dL Total Protein (6.3-8.2) g/dL Albumin (3.5-5.0) g/dL Globulin (1.6-3.3) g/dL Albumin/Globulin Ratio (1.60-3.17) Ratio Procalcitonin 0.03 (0.02-0.09) ng/mL Vancomycin Trough ug/mL 05/20/24 05/20/24 05/20/24 Range/Units 04:40 04:40 22:28 WBC 4.47 L (3.8-10.6) k/uL RBC 4.19 (3.80-5.40) m/uL Hgb 12.0 (11.4-16.0) gm/dL Hct 37.4 (34.0-46.0) % MCV 89.3 (80.0-100.0) fL MCH 28.6 (25.0-35.0) pg MCHC 32.1 (31.0-37.0) g/dL RDW 14.0 (11.5-15.5) % Plt Count 186 (150-450) k/uL MPV 9.4 L Immature Gran % (Auto) 0.20 % Absolute Nucleated RBC 0 % Neutrophils % 57.0 % Lymphocytes % 28.9 % Monocytes % 9.4 % Eosinophils % 3.8 % Basophils % 0.7 % Immature Gran # 0.01 (0.00-0.04) X 10*3/uL Neutrophils # 2.55 (1.3-7.7) k/uL Lymphocytes # 1.29 (1.0-4.8) k/uL Monocytes # 0.42 (0-1.0) k/uL Eosinophils # 0.17 (0-0.7) k/uL Basophils # 0.03 (0-0.2) k/uL NRBC/100 WBC Diff 0 (0.00-0.01) X 10*3/uL ESR (0-30) mm/Hr PT (10.0-12.5) sec INR (<1.2) APTT (22.0-30.0) sec Sodium 142 (137-145) mmol/L Potassium 3.9 (3.5-5.1) mmol/L Chloride 106 (98-107) mmol/L Carbon Dioxide 23.6 (22-30) mmol/L Anion Gap 12.40 H mmol/L BUN 9.5 (7-17) mg/dL Creatinine 0.6 (0.52-1.04) mg/dL Est GFR (CKD-EPI) 91 (>=60) Est GFR (CKD-EPI)AfAm (>60 ml/min/1.73 sqM) Est GFR (CKD-EPI)NonAf (>60 ml/min/1.73 sqM) BUN/Creatinine Ratio 15.83 (12.00-20.00) Ratio Glucose 99 (74-99) mg/dL Plasma Lactic Acid James (0.7-2.0) mmol/L Calcium 8.4 L (8.4-10.2) mg/dL Total Bilirubin 0.7 (0.2-1.3) mg/dL AST 33 (14-36) U/L ALT 40 (4-34) U/L Alkaline Phosphatase 94 (38-126) U/L C-Reactive Protein <0.30 (0.00-0.80) mg/dL Total Protein 5.8 L (6.3-8.2) g/dL Albumin 3.8 (3.5-5.0) g/dL Globulin 2.0 (1.6-3.3) g/dL Albumin/Globulin Ratio 1.90 (1.60-3.17) Ratio Procalcitonin (0.02-0.09) ng/mL Vancomycin Trough 13.1 ug/mL Disposition Clinical Impression: Infection of pacemaker pulse generator site Disposition: ADMITTED IP TO THIS HOSP Condition: Stable Is patient prescribed a controlled substance at d/c from ED?: No
[2024-05-19] MEDS ORDERED: NALOXONE 0.4 MG/ML 1 ML VIAL IV PRN (00:46)
[2024-05-19 00:49] LABS: Basophils % (A) 1 %; Eosinophils # (A) 0.1 k/uL (0-0.7); Eosinophils % (A) 4 %; HCT 36.9 % (34.0-46.0); HGB 11.7 gm/dL (11.4-16.0); Lymphocytes # (A) 1.2 k/uL (1.0-4.8); Lymphocytes % (A) 28 %; MCH 28.8 pg (25.0-35.0); MCHC 31.8 g/dL (31.0-37.0); MCV 90.5 fL (80.0-100.0); Mean Platelet Volume 7.2; Monocytes # (A) 0.4 k/uL (0-1.0); Monocytes % (A) 9 %; Neutrophils # (A) 2.3 k/uL (1.3-7.7); Neutrophils % (A) 56 %; Platelet Count 171 k/uL (150-450); RBC 4.07 m/uL (3.80-5.40); RDW 13.8 % (11.5-15.5); WBC 4.1 k/uL (3.8-10.6)
[2024-05-19 01:05] LABS: INR 0.9 (<1.2); Partial Thromboplastin Time 23.6 sec (22.0-30.0); Prothrombin Time 10.5 sec (10.0-12.5)
[2024-05-19 01:10] LABS: ALT 48 U/L (4-34); AST 50 U/L (14-36); African American GFR (CKD) >90 (>60 ml/min/1.73 sqM); Albumin 3.4 g/dL (3.5-5.0); Alkaline Phosphatase 81 U/L (38-126); Anion Gap 3 mmol/L; Blood Urea Nitrogen 9 mg/dL (7-17); Calcium 8.7 mg/dL (8.4-10.2); Carbon Dioxide 26 mmol/L (22-30); Chloride 109 mmol/L (98-107); Glucose 89 mg/dL (74-99); Non-African American GFR(CKD) >90 (>60 ml/min/1.73 sqM); Potassium 3.8 mmol/L (3.5-5.1); Sodium 138 mmol/L (137-145); Total Bilirubin 0.6 mg/dL (0.2-1.3); Total Protein 5.7 g/dL (6.3-8.2)
[2024-05-19] MEDS: PRAMIPEXOLE 1 MG TAB PO STA (01:53)
[2024-05-19] MEDS ORDERED: VANCOMYCIN IV PER PHARMACY 1 EACH MISC MISCELLANE PRN (09:55)
--- NOTE | 2024-05-19 10:37 | P.CRDCN ---
History of Present Illness Consult date: 05/19/24 Reason for Consult (text): Infected pacemaker site History of present illness: This is an 78-year-old female patient of Dr. 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 We have been asked to evaluate the patient for infected pacemaker site. Patient underwent [place] [employer] dual permanent pacemaker implantation at [facility] on 03/15/2024. Patient had follow-up in the office on 03/23/2024. There was a small hematoma but no other postprocedural complications. Patient was concerned because she had bruising and redness yesterday to the site and was seen in the office by Dr. Avalos and was instructed to monitor for infection. Patient presented to [facility] due to concern for infection and has been transferred from [facility] for possible pacemaker site infection. Patient states that she has had on and off drainage from the lower part of the incision. Patient received vancomycin at [facility]. CT did not show any abscess formation. She did test positive for COVID-19. No recent fever or chi lls. Patient has not been started on antibiotics. She has been placed on the observation unit. Blood pressure 150/85, heart rate 67, pulse ox 100% on room air, afebrile. EKG: Sinus rhythm with first-degree blocks 65 bpm, left bundle branch block. Laboratory studies: WBC 4.1, hemoglobin 10.7, platelet count 171. Sodium 138, potassium 3.8, creatinine 0.43. AST 50 and ALT 48. Lactic acid 0.7. Home cardiac medications from last office visit dated 03/23/2024: Amlodipine 2.5 mg daily, Lipitor 80 mg daily, Plavix 75 mg daily. Echocardiogram performed 03/30/2023 revealed normal EF, mild AR, mild MR. [place] pacemaker dual-chamber implantation on 03/15/2024 at [facility] Lexiscan Cardiolite stress test 03/26/2023 normal. Review Of Systems: At the time of my exam: CONSTITUTIONAL: Denies fever or chills. HEENT: Denies blurred vision, vision changes, or eye pain. Denies hemoptysis CARDIOVASCULAR: Denies chest pain. Denies orthopnea. Denies PND. Denies palpitations RESPIRATORY: Denies shortness of breath. GASTROINTESTINAL: Denies abdominal pain. Denies nausea or vomiting. HEMATOLOGIC: Denies bleeding disorders. GENITOURINARY: Denies any blood in urine. SKIN: Denies puritis. Denies rash. Physical examination: Gen: This is an 78-year-old female in no acute distress VS: reviewed HEENT: Head is atraumatic, normocephalic. Pupils equal, round. Sclerae is anicteric. NECK: Supple. No JVD. LUNGS: Clear to auscultation. No wheezes or rhonchi. No intercostal retractions. HEART: Regular rate and rhythm. Systolic murmur. Pacemaker site to the left upper anterior chest wall reveals ecchymosis, edema no redness and no tenderness. ABDOMEN: Soft No tenderness. EXTREMITIES: No pedal edema. No calf tenderness. NEUROLOGICAL: Patient is awake, alert and oriented x3. Assessment: Possible pacemaker site infection Valvular heart disease with aortic and mitral regurgitation Borderline dilated thoracic aorta Hypertension Dyslipidemia Carotid atherosclerosis Bradycardia status post permanent pacemaker Plan: Resume patient's home cardiac medications based on office documentation Obtain consult with infectious disease Interrogate pacemaker Further recommendations to follow based upon clinical course Thank you kindly for this consultation. Nurse practitioner note has been reviewed, I agree with documented findings and plan of care. Patient was seen and examined. Past Medical History Past Medical History: Cancer, Fibromyalgia, GERD/Reflux, Musculoskeletal Disorder, Osteoarthritis (OA), Seizure Disorder Additional Past Medical History / Comment(s): Ringing in ears, Thyroid nodules, Hypoglycemia, migraines, sinus problems, ibs, endometriosis, back pain, last seizure 2005, BREAST CANCER History of Any Multi-Drug Resistant Organisms: None Reported Past Surgical History: Breast Surgery, Cholecystectomy, Hysterectomy, Joint Replacement, Orthopedic Surgery Additional Past Surgical History / Comment(s): sinus surgery,colonoscopy , laparoscopy, D&C, carpal tunnel Right, arthroscopic bilateral knees, galen Knee replacement-rt knee x2, Right rotator cuff, Bilateral mastectomy, pain clinic procedures. rt. hip -arthroscopic , prolapsed urethra surg./rt hip replacement/c spine fusion, Pacemaker 04/30 Past Anesthesia/Blood Transfusion Reactions: No Reported Reaction Past Psychological History: No Psychological Hx Reported Smoking Status: Never smoker Past Alcohol Use History: Occasional Past Drug Use History: None Reported - Past Family History Mother Family Medical History: No Reported History Daughter(s) Family Medical History: Cancer Additional Family Medical History / Comment(s): brain cancer Medications and Allergies Home Medications Medication Instructions Recorded Confirmed Type Amoxicillin 875 mg PO Q12HR 05/19/24 05/19/24 History Atorvastatin [Lipitor] 80 mg PO HS 05/19/24 05/19/24 History Clopidogrel [Plavix] 75 mg PO DAILY 05/19/24 05/19/24 History Montelukast [Singulair] 10 mg PO HS 05/19/24 05/19/24 History Pantoprazole Sodium [Protonix] 40 mg PO DAILY 05/19/24 05/19/24 History Pramipexole [Mirapex] 2 mg PO HS 05/19/24 05/19/24 History amLODIPine [Norvasc] 2.5 mg PO DAILY 05/19/24 05/19/24 History Allergies Allergy/AdvReac Type Severity Reaction Status Date / Time erythromycin base Allergy Nausea Verified 05/19/24 09:40 [Erythromycin Base] topiramate [From Topamax] Allergy Itching Verified 05/19/24 09:40 codeine AdvReac Hallucinati Verified 05/19/24 09:40 ons Latex, Natural Rubber AdvReac Rash/Hives Verified 05/19/24 09:40 nortriptyline HCl AdvReac tremors Verified 05/19/24 09:40 [From Pamelor] pregabalin [From Lyrica] AdvReac very Verified 05/19/24 09:40 sleepy feeling tramadol AdvReac Unknown Verified 05/19/24 09:40 TRACE METALS Allergy PAIN AND Uncoded 05/19/24 09:40 SWELLING OF TISSUES TO KNEE WITH TOT KNEE REPLACE. morphine IM AdvReac red Uncoded 05/19/24 09:40 streaking @site tape AdvReac Rash/Hives Uncoded 05/19/24 09:40 Physical Exam Vitals: Vital Signs Temp Pulse Pulse Resp BP BP Pulse Ox 05/19/24 07:00 97.6 F 67 20 150/85 100 05/19/24 03:29 97.7 F 62 16 113/64 96 05/19/24 02:59 98 F 64 16 113/62 95 05/19/24 02:00 62 18 127/62 94 L 05/19/24 01:00 65 12 130/65 95 05/19/24 00:00 60 18 168/70 95 05/18/24 23:38 97.9 F 68 18 168/70 98 Intake and Output 05/18/24 05/19/24 05/19/24 22:59 06:59 14:59 Other: # Voids 1 Weight 65.771 kg Results 05/19/24 00:24 05/19/24 00:24 Cardiac Enzymes 05/19/24 Range/Units 00:24 AST 50 H (14-36) U/L Coagulation 05/19/24 Range/Units 00:24 PT 10.5 (10.0-12.5) sec APTT 23.6 (22.0-30.0) sec CBC 05/19/24 Range/Units 00:24 WBC 4.1 (3.8-10.6) k/uL RBC 4.07 (3.80-5.40) m/uL Hgb 11.7 (11.4-16.0) gm/dL Hct 36.9 (34.0-46.0) % Plt Count 171 (150-450) k/uL Comprehensive Metabolic Panel 05/19/24 Range/Units 00:24 Sodium 138 (137-145) mmol/L Potassium 3.8 (3.5-5.1) mmol/L Chloride 109 H (98-107) mmol/L Carbon Dioxide 26 (22-30) mmol/L BUN 9 (7-17) mg/dL Creatinine 0.43 L (0.52-1.04) mg/dL Glucose 89 (74-99) mg/dL Calcium 8.7 (8.4-10.2) mg/dL AST 50 H (14-36) U/L ALT 48 H (4-34) U/L Alkaline Phosphatase 81 (38-126) U/L Total Protein 5.7 L (6.3-8.2) g/dL Albumin 3.4 L (3.5-5.0) g/dL Current Medications Generic Name Dose Route Start Last Admin Trade Name Freq PRN Reason Stop Dose Admin Acetaminophen 650 mg 05/19/24 00:46 Acetaminophen Tab 325 Mg Tab PO Q6HR PRN Mild Pain or Fever > 100.5 Naloxone HCl 0.2 mg 05/19/24 00:46 Naloxone 0.4 Mg/Ml 1 Ml Vial IV Q2M PRN Opioid Reversal Intake and Output 05/18/24 05/19/24 05/19/24 22:59 06:59 14:59 Other: # Voids 1 Weight 65.771 kg 05/19/24 00:24 05/19/24 00:24
[2024-05-19] MEDS: VANCOMYCIN 1,250 MG in SODIUM CHLORIDE 0.9% 250 ML IVPB SCH (12:32)
[2024-05-19] MEDS: CLOPIDOGREL 75 MG TAB PO SCH (12:33)
--- NOTE | 2024-05-19 13:38 | P.HPIM ---
History of Present Illness H&P Date: 05/19/24 History of present illness; patient fabi 78-year-old lady with past medical history significant for hyperlipidemia, permanent pacemaker placement. The ER as a transfer from [facility] for possible pacemaker site infection. Patient stated that she was all right 2 days ago when she started noticing that there was redness and warmth around the pacemaker site. Patient stated that at that time she became concerned and called her primary relief worker office who told her to come to the office where pacemaker was checked and evaluated and there was nothing found to be wrong with it. Patient denied having any fevers or chills at time. Over the following days patient noticed that the erythema and swelling around the pacemaker site worsened. Because of worsening symptoms she went to [facility] where she had a CT scan done that did not show any abscess formation. Patient was sent to [facility] further evaluation Initial lab work done in the ER showed WBC 4.1, hemoglobin 9.7, platelet count 171, sodium 1 3, potassium 3.8, BUN 9, creatinine 0.43, glucose 89, AST 50, ALT 48, albumin 3.4 EKG done in the ER showed heart rate of 65, no ST segment elevation or depression seen, no T-wave inversions seen. Patient admitted to internal medicine service REVIEW OF SYSTEMS: CONSTITUTIONAL: No fever, no malaise, no fatigue. HEENT: No recent visual problems or hearing problems. Denied any sore throat. CARDIOVASCULAR: No chest pain, orthopnea, PND, no palpitations, no syncope. PULMONARY: No shortness of breath, no cough, no hemoptysis. GASTROINTESTINAL: No diarrhea, no nausea, no vomiting, no abdominal pain. NEUROLOGICAL: No headaches, no weakness, no numbness. HEMATOLOGICAL: Denies any bleeding or petechiae. GENITOURINARY: Denies any burning micturition, frequency, or urgency. MUSCULOSKELETAL/RHEUMATOLOGICAL: Denies any joint pain, swelling, or any muscle pain. ENDOCRINE: Denies any polyuria or polydipsia. The rest of the 14-point review of systems is negative. PHYSICAL EXAMINATION: GENERAL: The patient is alert and oriented x3, not in any acute distress. Well developed, well nourished. HEENT: Pupils are round and equally reacting to light. EOMI. No scleral icterus. No conjunctival pallor. Normocephalic, atraumatic. No pharyngeal erythema. No thyromegaly. CARDIOVASCULAR: S1 and S2 present. No murmurs, rubs, or gallops. Left-sided pacemaker pocket erythema seen PULMONARY: Chest is clear to auscultation, no wheezing or crackles. ABDOMEN: Soft, nontender, nondistended, normoactive bowel sounds. No palpable organomegaly. MUSCULOSKELETAL: No joint swelling or deformity. EXTREMITIES: No cyanosis, clubbing, or pedal edema. NEUROLOGICAL: Gross neurological examination did not reveal any focal deficits. SKIN: No rashes. Assessment and plan Cellulitis of left chest wall. 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 Continue same treatment. Continue with symptomatic treatment. Resume home medication. Monitor labs and vitals. DVT and GI prophylaxis. Further recommendations as per clinical course of the patient Dictation was produced using [employer] dictation software. please excuse any grammatical, word or spelling errors. Past Medical History Past Medical History: Cancer, Fibromyalgia, GERD/Reflux, Musculoskeletal Disorder, Osteoarthritis (OA), Seizure Disorder Additional Past Medical History / Comment(s): Ringing in ears, Thyroid nodules, Hypoglycemia, migraines, sinus problems, ibs, endometriosis, back pain, last seizure 2005, BREAST CANCER History of Any Multi-Drug Resistant Organisms: None Reported Past Surgical History: Breast Surgery, Cholecystectomy, Hysterectomy, Joint Replacement, Orthopedic Surgery Additional Past Surgical History / Comment(s): sinus surgery,colonoscopy , l aparoscopy, D&C, carpal tunnel Right, arthroscopic bilateral knees, galen Knee replacement-rt knee x2, Right rotator cuff, Bilateral mastectomy, pain clinic procedures. rt. hip -arthroscopic , prolapsed urethra surg./rt hip replacement/c spine fusion, Pacemaker 04/30 Past Anesthesia/Blood Transfusion Reactions: No Reported Reaction Past Psychological History: No Psychological Hx Reported Smoking Status: Never smoker Past Alcohol Use History: Occasional Past Drug Use History: None Reported - Past Family History Mother Family Medical History: No Reported History Daughter(s) Family Medical History: Cancer Additional Family Medical History / Comment(s): brain cancer Medications and Allergies Home Medications Medication Instructions Recorded Confirmed Type Amoxicillin 875 mg PO Q12HR 05/19/24 05/19/24 History Atorvastatin [Lipitor] 80 mg PO HS 05/19/24 05/19/24 History Clopidogrel [Plavix] 75 mg PO DAILY 05/19/24 05/19/24 History Montelukast [Singulair] 10 mg PO HS 05/19/24 05/19/24 History Pantoprazole Sodium [Protonix] 40 mg PO DAILY 05/19/24 05/19/24 History Pramipexole [Mirapex] 2 mg PO HS 05/19/24 05/19/24 History amLODIPine [Norvasc] 2.5 mg PO DAILY 05/19/24 05/19/24 History Allergies Allergy/AdvReac Type Severity Reaction Status Date / Time erythromycin base Allergy Nausea Verified 05/19/24 09:40 [Erythromycin Base] topiramate [From Topamax] Allergy Itching Verified 05/19/24 09:40 codeine AdvReac Hallucinati Verified 05/19/24 09:40 ons Latex, Natural Rubber AdvReac Rash/Hives Verified 05/19/24 09:40 nortriptyline HCl AdvReac tremors Verified 05/19/24 09:40 [From Pamelor] pregabalin [From Lyrica] AdvReac very Verified 05/19/24 09:40 sleepy feeling tramadol AdvReac Unknown Verified 05/19/24 09:40 TRACE METALS Allergy PAIN AND Uncoded 05/19/24 09:40 SWELLING OF TISSUES TO KNEE WITH TOT KNEE REPLACE. morphine IM AdvReac red Uncoded 05/19/24 09:40 streaking @site tape AdvReac Rash/Hives Uncoded 05/19/24 09:40 Physical Exam Vitals: Vital Signs Temp Pulse Pulse Resp BP BP Pulse Ox 05/19/24 07:00 97.6 F 67 20 150/85 100 05/19/24 03:29 97.7 F 62 16 113/64 96 05/19/24 02:59 98 F 64 16 113/62 95 05/19/24 02:00 62 18 127/62 94 L 05/19/24 01:00 65 12 130/65 95 05/19/24 00:00 60 18 168/70 95 05/18/24 23:38 97.9 F 68 18 168/70 98 Intake and Output 05/18/24 05/19/24 05/19/24 22:59 06:59 14:59 Other: # Voids 1 Weight 65.771 kg Results CBC & Chem 7: 05/19/24 00:24 05/19/24 00:24 Labs: Abnormal Lab Results - Last 24 Hours (Table) 05/19/24 Range/Units 00:24 Chloride 109 H (98-107) mmol/L Creatinine 0.43 L (0.52-1.04) mg/dL AST 50 H (14-36) U/L ALT 48 H (4-34) U/L Total Protein 5.7 L (6.3-8.2) g/dL Albumin 3.4 L (3.5-5.0) g/dL Thrombosis Risk Factor Assmnt - Choose All That Apply Any of the Below Risk Factors Present?: No Other Risk Factors: Yes Each Risk Factor Represents 3 Points: Age 75 years or older Other congenital or acquired thrombophilia - If yes, enter type in comment: No Thrombosis Risk Factor Assessment Total Risk Factor Score: 3 Thrombosis Risk Factor Assessment Level: Moderate Risk
[2024-05-19] MEDS: ATORVASTATIN 80 MG TAB PO SCH (20:17)
[2024-05-19] MEDS: MONTELUKAST 10 MG TAB PO SCH (20:17)
[2024-05-19] MEDS: PRAMIPEXOLE 1 MG TAB PO SCH (20:17)
--- NOTE | 2024-05-19 22:47 | P.CONS ---
History of Present Illness - Reason for Consult Consult date: 05/19/24 Evaluate PMK site for infection Requesting physician: Samara Baron - Chief Complaint Left chest wall pain and redness x days - History of Present Illness Patient is a 78-year-old female with a past medical history significant for osteoarthritis reflux fibromyalgia seizure disorder valvular heart disease with aortic and mitral regurgitation hypertension bradycardia who recently did have a permanent pacemaker placement at [facility] on 03/15/2024 apparently patient was noted to have small hematoma on a postop visit by cardiology patient subsequently noticed to having increasing swelling and redness to the left chest wall area apparently over the last 2 days that has progressed to get worse patient complaining of pain mostly dull aching about 4 out of 10 without radiation and denies having any purulent drainage with the symptoms the patient presented to the [facility] with the patient did have a CT which did not show any abscess patient was started on vancomycin subsequently has been transferred to [facility] for further evaluation daughter did mention overall redness has decreased comparing to yesterday after the patient has received IV antibiotic therapy at [place] patient also tested positive at that facility and apparently the patient did have some new respiratory symptoms started about 5 days before presentation to the hospital mostly dry cough but denies any shortness of breath or URI symptoms no nausea no vomiting on presentation to the hospital patient was afebrile and no fever have been ordered subsequently patient was not tachycardic hypotensive or hypoxic and no need for supplemental oxygen did have white count of 4.1 creatinine 0.43 liver isms mildly elevated blood cultures opioids currently pending patient has been continued on vancomycin infectious he was consulted for evaluation of the pacemaker site for infection Review of Systems Positive point and negatives has been mentioned in the HPI, complete review of systems was performed and all other systems are negative Past Medical History Past Medical History: Cancer, Fibromyalgia, GERD/Reflux, Musculoskeletal Disorder, Osteoarthritis (OA), Seizure Disorder Additional Past Medical History / Comment(s): Ringing in ears, Thyroid nodules, Hypoglycemia, migraines, sinus problems, ibs, endometriosis, back pain, last seizure 2005, BREAST CANCER History of Any Multi-Drug Resistant Organisms: None Reported Past Surgical History: Breast Surgery, Cholecystectomy, Hysterectomy, Joint Replacement, Orthopedic Surgery Additional Past Surgical History / Comment(s): sinus surgery,colonoscopy , laparoscopy, D&C, carpal tunnel Right, arthroscopic bilateral knees, galen Knee replacement-rt knee x2, Right rotator cuff, Bilateral mastectomy, pain clinic procedures. rt. hip -arthroscopic , prolapsed urethra surg./rt hip replacement/c spine fusion, Pacemaker 04/30 Past Anesthesia/Blood Transfusion Reactions: No Reported Reaction Past Psychological History: No Psychological Hx Reported Smoking Status: Never smoker Past Alcohol Use History: Occasional Past Drug Use History: None Reported - Past Family History Mother Family Medical History: No Reported History Daughter(s) Family Medical History: Cancer Additional Family Medical History / Comment(s): brain cancer Medications and Allergies Home Medications Medication Instructions Recorded Confirmed Type Amoxicillin 875 mg PO Q12HR 05/19/24 05/19/24 History Atorvastatin [Lipitor] 80 mg PO HS 05/19/24 05/19/24 History Clopidogrel [Plavix] 75 mg PO DAILY 05/19/24 05/19/24 History Montelukast [Singulair] 10 mg PO HS 05/19/24 05/19/24 History Pantoprazole Sodium [Protonix] 40 mg PO DAILY 05/19/24 05/19/24 History Pramipexole [Mirapex] 2 mg PO HS 05/19/24 05/19/24 History amLODIPine [Norvasc] 2.5 mg PO DAILY 05/19/24 05/19/24 History Allergies Allergy/AdvReac Type Severity Reaction Status Date / Time erythromycin base Allergy Nausea Verified 05/19/24 09:40 [Erythromycin Base] topiramate [From Topamax] Allergy Itching Verified 05/19/24 09:40 codeine AdvReac Hallucinati Verified 05/19/24 09:40 ons Latex, Natural Rubber AdvReac Rash/Hives Verified 05/19/24 09:40 nortriptyline HCl AdvReac tremors Verified 05/19/24 09:40 [From Pamelor] pregabalin [From Lyrica] AdvReac very Verified 05/19/24 09:40 sleepy feeling tramadol AdvReac Unknown Verified 05/19/24 09:40 TRACE METALS Allergy PAIN AND Uncoded 05/19/24 09:40 SWELLING OF TISSUES TO KNEE WITH TOT KNEE REPLACE. morphine IM AdvReac red Uncoded 05/19/24 09:40 streaking @site tape AdvReac Rash/Hives Uncoded 05/19/24 09:40 Physical Exam Vitals: Vital Signs Temp Pulse Pulse Resp BP BP Pulse Ox 05/19/24 07:00 97.6 F 67 20 150/85 100 05/19/24 03:29 97.7 F 62 16 113/64 96 05/19/24 02:59 98 F 64 16 113/62 95 05/19/24 02:00 62 18 127/62 94 L 05/19/24 01:00 65 12 130/65 95 05/19/24 00:00 60 18 168/70 95 05/18/24 23:38 97.9 F 68 18 168/70 98 Intake and Output 05/18/24 05/19/24 05/19/24 22:59 06:59 14:59 Other: # Voids 1 Weight 65.771 kg GENERAL DESCRIPTION: Elderly female lying in bed, no distress. No tachypnea or accessory muscle of respiration use. HEENT: Shows Pallor , no scleral icterus. Oral mucous membrane is dry. No pharyngeal erythema or thrush NECK: Trachea central, no thyromegaly. LUNGS: Unlabored breathing. Clear to auscultation anteriorly. No wheeze or crackle. HEART: S1, S2, regular rate and rhythm. No loud murmur ABDOMEN: Soft, no tenderness , guarding or rigidity, no organomegaly EXTREMITIES: No edema of feet. SKIN: Left chest wall pacemaker site did have a bruising on the top with erythema at the lower end no fluctuation or drainage was noticed NEUROLOGICAL: The patient is awake, alert, oriented x3, mood and affect normal. Results CBC & Chem 7: 05/19/24 00:24 05/19/24 00:24 Labs: Abnormal Lab Results - Last 24 Hours (Table) 05/19/24 Range/Units 00:24 Chloride 109 H (98-107) mmol/L Creatinine 0.43 L (0.52-1.04) mg/dL AST 50 H (14-36) U/L ALT 48 H (4-34) U/L Total Protein 5.7 L (6.3-8.2) g/dL Albumin 3.4 L (3.5-5.0) g/dL Assessment and Plan (1) Infection of pacemaker pulse generator site Current Visit: Yes Status: Acute Code(s): T82.7XXA - INFECT/INFLM REACT D/T OTH CARDI/VASC DEV/IMPLNT/GRFT, INIT SNOMED Code(s): 848160077 (2) Cellulitis of chest wall Current Visit: Yes Status: Acute Code(s): L03.313 - CELLULITIS OF CHEST WALL SNOMED Code(s): 29329087 Plan: 1patient presented to outside facility with left chest wall swelling and redness around the pacemaker site that was recently placed at the outside facility on 03/15/2024 and apparently noticed to have some bruising on the hospital follow-up visit now with concern for cellulitis as apparently the redness has decreased compared to yesterday after the patient has been on IV vancomycin as reported by the daughter more likely cellulitis from gram-positive skin marcy 2-blood culture has been obtained we will check inflammatory markers 3-marked area of redness 4-vancomycin pharmacy to dose target trough of 15 while watching kidney fu nction and Vanco trough closely Patient and daughter have multiple questions options of treatment including aggressive IV antibiotic therapy and if that failed to clear the infection there will be option for removal of the infected pacemaker explained in layman terms We will follow on clinical condition and cultures to further adjust medication if needed Thank you for this consultation we will follow the patient along with you Dictation was produced using [employer] dictation software. please excuse any grammatical, word or spelling errors. Time with Patient: Greater than 30
[2024-05-20] MEDS: PANTOPRAZOLE 40 MG TABLET PO SCH (05:53)
[2024-05-20 09:37] LABS: Basophils # (A) 0.03 X 10*3/uL (0.00-0.10); Basophils % (A) 0.7 %; Eosinophils # (A) 0.17 X 10*3/uL (0.04-0.35); Eosinophils % (A) 3.8 %; HCT 37.4 % (37.2-46.3); Lymphocytes # (A) 1.29 X 10*3/uL (0.90-5.00); Lymphocytes % (A) 28.9 %; MCH 28.6 pg (27.0-32.0); MCHC 32.1 g/dL (32.0-37.0); MCV 89.3 FL (80.0-97.0); Mean Platelet Volume 9.4 FL (9.5-12.2); Monocytes # (A) 0.42 X 10*3/uL (0.20-1.00); Monocytes % (A) 9.4 %; NRBC Per 100 WBC 0 X 10*3/uL (0.00-0.01); Neutrophils # (A) 2.55 X 10*3/uL (1.80-7.70); Platelet Count 186 X 10*3/uL (140-440); RBC 4.19 X 10*6/uL (4.10-5.20); WBC 4.47 X 10*3/uL (4.50-10.00)
[2024-05-20] MEDS: amLODIPine 2.5 MG TAB PO SCH (09:43)
[2024-05-20 09:47] LABS: C Reactive Protein <0.30 mg/dL (0.00-0.80)
[2024-05-20 10:08] LABS: ALT 40 U/L (8-44); AST 33 U/L (13-35); Albumin 3.8 g/dL (3.8-4.9); Alkaline Phosphatase 94 U/L (41-126); BUN/Creat Ratio 15.83 Ratio (12.00-20.00); Blood Urea Nitrogen 9.5 mg/dL (9.0-27.0); Calcium 8.4 mg/dL (8.7-10.3); Carbon Dioxide 23.6 mmol/L (21.6-31.8); Chloride 106 mmol/L (96-109); Glucose 99 mg/dL (70-110); Potassium 3.9 mmol/L (3.5-5.5); Sodium 142 mmol/L (135-145); Total Bilirubin 0.7 mg/dL (0.3-1.2); Total Protein 5.8 g/dL (6.2-8.2)
--- NOTE | 2024-05-20 11:03 | P.PN ---
Subjective Progress Note Date: 05/20/24 Reason for Consult (text): Infected pacemaker site History of present illness: This is an 78-year-old female patient of Dr. 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 We have been asked to evaluate the patient for infected pacemaker site. Patient underwent [place] [employer] dual permanent pacemaker implantation at [facility] on 03/15/2024. Patient had follow-up in the office on 03/23/2024. There was a small hematoma but no other postprocedural complications. Patient was concerned because she had bruising and redness yesterday to the site and was seen in the office by Dr. Avalos and was instructed to monitor for infection. Patient presented to [facility] due to concern for infection and has been transferred from [facility] for possible pacemaker site infection. Patient states that she has had on and off drainage from the lower part of the incision. Patient received vancomycin at [place]. CT did not show any abscess formation. She did test positive for COVID-19. No recent fever or chills. Patient has not been started on antibiotics. She has been placed on the observation unit. Blood pressure 150/85, heart rate 67, pulse ox 100% on room air, afebrile. EKG: Sinus rhythm with first-degree blocks 65 bpm, left bundle branch block. Laboratory studies: WBC 4.1, hemoglobin 10.7, platelet count 171. Sodium 138, potassium 3.8, creatinine 0.43. AST 50 and ALT 48. Lactic acid 0.7. Home cardiac medications from last office visit dated 03/23/2024: Amlodipine 2.5 mg daily, Lipitor 80 mg daily, Plavix 75 mg daily. Echocardiogram performed 03/30/2023 revealed normal EF, mild AR, mild MR. [employer] pacemaker dual-chamber implantation on 03/15/2024 at [facility] Lexiscan Cardiolite stress test 03/26/2023 normal. 05/20 Patient has been evaluated by Dr. Locke and started on vancomycin. Blood pressure 148/78, heart rate 63, pulse ox 98% on room air. Patient remains afebrile. Sed rate 31 and procalcitonin 0.03. Blood culture is status received. Physical examination: Gen: This is an 78-year-old female in no acute distress VS: reviewed HEENT: Head is atraumatic, normocephalic. Pupils equal, round. Sclerae is anicteric. NECK: Supple. No JVD. LUNGS: Clear to auscultation. No wheezes or rhonchi. No intercostal retractions. HEART: Regular rate and rhythm. Systolic murmur. Pacemaker site to the left upper anterior chest wall reveals mild ecchymosis, edema no redness and no tenderness. ABDOMEN: Soft No tenderness. EXTREMITIES: No pedal edema. No calf tenderness. NEUROLOGICAL: Patient is awake, alert and oriented x3. 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 Patient was seen and examined. Objective - Vital Signs Vital signs: Vital Signs Temp 97.7 F 05/20/24 07:00 Pulse 63 05/20/24 07:00 Resp 17 05/20/24 07:00 BP 148/78 05/20/24 07:00 Pulse Ox 98 05/20/24 07:00 FiO2 Intake & Output 05/19/24 05/20/24 05/20/24 18:59 06:59 18:59 Intake Total 680 Balance 680 Intake: Oral 680 Other: Voiding Method Toilet # Voids 4 2 - Labs CBC & Chem 7: 05/20/24 04:40 05/20/24 04:40 Labs: Abnormal Lab Results - Last 24 Hours (Table) 05/19/24 Range/Units 10:58 ESR 31 H (0-30) mm/Hr
[2024-05-20] MEDS: ACETAMINOPHEN TAB 325 MG TAB PO PRN (11:23)
--- NOTE | 2024-05-20 12:52 | P.PN ---
Subjective Progress Note Date: 05/20/24 patient fabi 78-year-old lady with past medical history significant for hyperlipidemia, permanent pacemaker placement. The ER as a transfer from [facility] for possible pacemaker site infection. Patient stated that she was all right 2 days ago when she started noticing that there was redness and warmth around the pacemaker site. Patient stated that at that time she became concerned and called her primary animal tech office who told her to come to the office where pacemaker was checked and evaluated and there was nothing found to be wrong with it. Patient denied having any fevers or chills at time. Over the following days patient noticed that the erythema and swelling around the pac emaker site worsened. Because of worsening symptoms she went to [facility] where she had a CT scan done that did not show any abscess formation. Patient was sent to [facility] further evaluation Initial lab work done in the ER showed WBC 4.1, hemoglobin 9.7, platelet count 171, sodium 1 3, potassium 3.8, BUN 9, creatinine 0.43, glucose 89, AST 50, ALT 48, albumin 3.4 EKG done in the ER showed heart rate of 65, no ST segment elevation or depression seen, no T-wave inversions seen. Patient admitted to internal medicine service 05/20. Patient seen examined. States pain and redness of left-sided chest wall has improved. REVIEW OF SYSTEMS: CONSTITUTIONAL: No fever, no malaise,. CARDIOVASCULAR: No chest pain, no palpitations, no syncope. PULMONARY: No shortness of breath, no cough, GASTROINTESTINAL: No diarrhea, no nausea, no vomiting, no abdominal pain. NEUROLOGICAL: No headaches, no weakness, PHYSICAL EXAMINATION: GENERAL: The patient is alert and oriented x3, not in any acute distress. Well developed, well nourished. HEENT: Pupils are round and equally reacting to light. EOMI. No scleral icterus. No conjunctival pallor. Normocephalic, atraumatic. No pharyngeal erythema. No thyromegaly. CARDIOVASCULAR: S1 and S2 present. No murmurs, rubs, or gallops. Left-sided pacemaker pocket erythema seen PULMONARY: Chest is clear to auscultation, no wheezing or crackles. ABDOMEN: Soft, nontender, nondistended, normoactive bowel sounds. No palpable organomegaly. MUSCULOSKELETAL: No joint swelling or deformity. EXTREMITIES: No cyanosis, clubbing, or pedal edema. NEUROLOGICAL: Gross neurological examination did not reveal any focal deficits. SKIN: No rashes. Assessment and plan Cellulitis of left chest wall. 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 Continue same treatment. Continue with sy mptomatic treatment. Resume home medication. Monitor labs and vitals. DVT and GI prophylaxis. Further recommendations as per clinical course of the patient Dictation was produced using [employer] dictation software. please excuse any grammatical, word or spelling errors. Objective - Vital Signs Vital signs: Vital Signs Temp 97.7 F 05/20/24 07:00 Pulse 63 05/20/24 07:00 Resp 17 05/20/24 07:00 BP 148/78 05/20/24 07:00 Pulse Ox 98 05/20/24 07:00 FiO2 Intake & Output 05/19/24 05/20/24 05/20/24 18:59 06:59 18:59 Intake Total 680 118 Balance 680 118 Intake: Oral 680 118 Other: Voiding Method Toilet # Voids 4 2 - Labs CBC & Chem 7: 05/20/24 04:40 05/20/24 04:40 Labs: Abnormal Lab Results - Last 24 Hours (Table) 05/19/24 05/20/24 05/20/24 Range/Units 10:58 04:40 04:40 WBC 4.47 L (4.50-10.00) X 10*3/uL MPV 9.4 L (9.5-12.2) FL ESR 31 H (0-30) mm/Hr Anion Gap 12.40 H (4.00-12.00) mmol/L Calcium 8.4 L (8.7-10.3) mg/dL Total Protein 5.8 L (6.2-8.2) g/dL
--- NOTE | 2024-05-20 13:09 | P.PN ---
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 On today's evaluation that is 05/20/2024, Patient is afebrile this morning and denies any chills, patient mention breathing comfortably and is currently on room air, patient denies any chest pain occasional cough patient denies any abdominal pain no diarrhea no nausea no vomiting patient denies having any worsening pain to the left chest wall pacemaker site. Patient white count is 4.47 sed rate is 31 creatinine 0.6 blood cultures are pending Objective - Vital Signs Vital signs: Vital Signs Temp 97.7 F 05/20/24 07:00 Pulse 63 05/20/24 07:00 Resp 17 05/20/24 07:00 BP 148/78 05/20/24 07:00 Pulse Ox 98 05/20/24 07:00 FiO2 Intake & Output 05/19/24 05/20/24 05/20/24 18:59 06:59 18:59 Intake Total 680 118 Balance 680 118 Intake: Oral 680 118 Other: Voiding Method Toilet # Voids 4 2 - Exam GENERAL DESCRIPTION: An elderly female lying in bed in no distress RESPIRATORY SYSTEM: Unlabored breathing , decreased breath sounds at bases HEART: S1 S2 regular rate and rhythm , left chest wall pacemaker site redness slightly decreased from the line placed around it ABDOMEN: Soft , no tenderness EXTREMITIES: No edema feet - Labs CBC & Chem 7: 05/20/24 04:40 05/20/24 04:40 Labs: Abnormal Lab Results - Last 24 Hours (Table) 05/19/24 05/20/24 05/20/24 Range/Units 10:58 04:40 04:40 WBC 4.47 L (4.50-10.00) X 10*3/uL MPV 9.4 L (9.5-12.2) FL ESR 31 H (0-30) mm/Hr Anion Gap 12.40 H (4.00-12.00) mmol/L Calcium 8.4 L (8.7-10.3) mg/dL Total Protein 5.8 L (6.2-8.2) g/dL Assessment and Plan (1) Infection of pacemaker pulse generator site Current Visit: Yes Status: Acute Code(s): T82.7XXA - INFECT/INFLM REACT D/T OTH CARDI/VASC DEV/IMPLNT/GRFT, INIT SNOMED Code(s): 094086659 (2) Cellulitis of chest wall Current Visit: Yes Status: Acute Code(s): L03.313 - CELLULITIS OF CHEST WALL SNOMED Code(s): 61310737 Plan: 1patient presented to outside facility with left chest wall swelling and redness around the pacemaker site that was recently placed at the outside facility on 03/15/2024 and apparently noticed to have some bruising on the hos pital follow-up visit now with concern for cellulitis as apparently the redness has decreased compared to yesterday after the patient has been on IV vancomycin as reported by the daughter more likely cellulitis from gram-positive skin marcy 2-blood culture has been obtained, the patient have elevated sed rate but CRP is normal 3-patient to continue with vancomycin pharmacy to dose target trough of 15 while watching kidney function and Vanco trough closely Question concern answered Dictation was produced using [employer] dictation software. please excuse any grammatical, word or spelling errors. Time with Patient: Less than 30
[2024-05-20] MEDS: VANCOMYCIN TROUGH DUE 1 EACH MISC MISCELLANE ONE (23:37)
--- NOTE | 2024-05-21 13:53 | P.PN ---
Subjective Progress Note Date: 05/21/24 patient fabi 78-year-old lady with past medical history significant for hyperlipidemia, permanent pacemaker placement. The ER as a transfer from [facility] for possible pacemaker site infection. Patient stated that she was all right 2 days ago when she started noticing that there was redness and warmth around the pacemaker site. Patient stated that at that time she became concerned and called her primary piping supervisor office who told her to come to the office where pacemaker was checked and evaluated and there was nothing found to be wrong with it. Patient denied having any fevers or chills at time. Over the following days patient noticed that the erythema and swelling around the pac emaker site worsened. Because of worsening symptoms she went to [facility] where she had a CT scan done that did not show any abscess formation. Patient was sent to [facility] further evaluation Initial lab work done in the ER showed WBC 4.1, hemoglobin 9.7, platelet count 171, sodium 1 3, potassium 3.8, BUN 9, creatinine 0.43, glucose 89, AST 50, ALT 48, albumin 3.4 EKG done in the ER showed heart rate of 65, no ST segment elevation or depression seen, no T-wave inversions seen. Patient admitted to internal medicine service 05/20. Patient seen examined. States pain and redness of left-sided chest wall has improved. 05/21. Patient seen and examined. Redness of left chest wall has improved. Blood cultures are negative. ID recommended keeping patient on current IV vancomycin REVIEW OF SYSTEMS: CONSTITUTIONAL: No fever, no malaise,. CARDIOVASCULAR: No chest pain, no palpitations, no syncope. PULMONARY: No shortness of breath, no cough, GASTROINTESTINAL: No diarrhea, no nausea, no vomiting, no abdominal pain. NEUROLOGICAL: No headaches, no weakness, PHYSICAL EXAMINATION: GENERAL: The patient is alert and oriented x3, not in any acute distress. Well developed, well nourished. HEENT: Pupils are round and equally reacting to light. EOMI. No scleral icterus. No conjunctival pallor. Normocephalic, atraumatic. No pharyngeal erythema. No thyromegaly. CARDIOVASCULAR: S1 and S2 present. No murmurs, rubs, or gallops. Left-sided pacemaker pocket erythema seen PULMONARY: Chest is clear to auscultation, no wheezing or crackles. ABDOMEN: Soft, nontender, nondistended, normoactive bowel sounds. No palpable organomegaly. MUSCULOSKELETAL: No joint swelling or deformity. EXTREMITIES: No cyanosis, clubbing, or pedal edema. NEUROLOGICAL: Gross neurological examination did not reveal any focal deficits. SKIN: No rashes. Assessment and plan Cellulitis of left chest wall. Pacemaker site infection COVID-19 infection tested positive at [facility] Hypertension Hyperlipidemia Valvular heart disease with aortic and mitral regurgitation Borderline dilated thoracic aorta Carotid atherosclerosis Bradycardia status post permanent pacemaker Monitor vital signs Monitor CBC Monitor CMP Follow blood culture Continue pharmacy dose vancomycin Continue aspirin, Plavix Continue Norvasc ID following Cardiology following Labs and medication were reviewed.. Continue same treatment. Continue with symptomatic treatment. Resume home medication. Monitor labs and vitals. DVT and GI prophylaxis. Further recommendations as per clinical course of the patient Dictation was produced using [employer] dictation software. please excuse any grammatical, word or spelling errors. Objective - Vital Signs Vital signs: Vital Signs Temp 97.5 F L 05/21/24 07:00 Pulse 71 05/21/24 09:18 Resp 16 05/21/24 07:00 BP 133/73 05/21/24 09:18 Pulse Ox 100 05/21/24 07:00 FiO2 Intake & Output 05/20/24 05/21/24 05/21/24 18:59 06:59 18:59 Intake Total 1236 118 Balance 1236 118 Intake: Oral 1236 118 Other: Voiding Method Toilet # Voids 1 - Labs CBC & Chem 7: 05/20/24 04:40 05/20/24 04:40
--- NOTE | 2024-05-21 14:55 | P.PN ---
Subjective This is an 78-year-old female patient of Dr. 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 We have been asked to evaluate the patient for infected pacemaker site. Patient underwent [employer] dual permanent pacemaker implantation at [facility] on 03/15/2024. Patient had follow-up in the office on 03/23/2024. There was a small hematoma but no other postprocedural complications. Patient was concerned because she had bruising and redness yesterday to the site and was seen in the office by Dr. Avalos and was instructed to monitor for infection. Patient presented to [facility] due to concern for infection and has been transferred from [facility] for possible pacemaker site infection. Patient states that she has had on and off drainage from the lower part of the incision. Patient received vancomycin at [place]. CT did not show any abscess formation. She did test positive for COVID-19. No recent fever or chills. Patient has not been started on antibiotics. She has been placed on the observation unit. Blood pressure 150/85, heart rate 67, pulse ox 100% on room air, afebrile. EKG: Sinus rhythm with first-degree blocks 65 bpm, left bundle branch block. Laboratory studies: WBC 4.1, hemoglobin 10.7, platelet count 171. Sodium 138, potassium 3.8, creatinine 0.43. AST 50 and ALT 48. Lactic acid 0.7. Home cardiac medications from last office visit dated 03/23/2024: Amlodipine 2.5 mg daily, Lipitor 80 mg daily, Plavix 75 mg daily. Echocardiogram performed 03/30/2023 revealed normal EF, mild AR, mild MR. [employer] pacemaker dual-chamber implantation on 03/15/2024 at [facility] Lexiscan Cardiolite stress test 03/26/2023 normal. 05/20 Patient has been evaluated by Dr. Locke and started on vancomycin. Blood pressure 148/78, heart rate 63, pulse ox 98% on room air. Patient remains afebrile. Sed rate 31 and procalcitonin 0.03. Blood culture is status received. 05/21 patient seen and examined. Patient denies any chest pain or pressure. Her pacemaker site is less red. She denies any pain around the site. No fevers or chills. Blood culture to date is negative. Remains on vancomycin. Physical examination: Gen: This is an 78-year-old female in no acute distress VS: reviewed HEENT: Head is atraumatic, normocephalic. Pupils equal, round. Sclerae is anicteric. NECK: Supple. No JVD. LUNGS: Clear to auscultation. No wheezes or rhonchi. No intercostal retr actions. HEART: Regular rate and rhythm. Systolic murmur. Pacemaker site to the left upper anterior chest wall reveals mild ecchymosis, edema no redness and no tenderness. ABDOMEN: Soft No tenderness. EXTREMITIES: No pedal edema. No calf tenderness. NEUROLOGICAL: Patient is awake, alert and oriented x3. Assessment: Possible pacemaker site infection Valvular heart disease with aortic and mitral regurgitation Borderline dilated thoracic aorta Hypertension Dyslipidemia Carotid atherosclerosis Bradycardia status post permanent pacemaker Plan: continue with IV antibiotics per infectious disease, likely 2 weeks. Unless patient has persistent bacteremia no current indications for pacemaker extraction. Further recommendations to follow based upon clinical course Objective - Vital Signs Vital signs: Vital Signs Temp 97.9 F 05/21/24 14:45 Pulse 70 05/21/24 14:45 Resp 14 05/21/24 14:45 BP 157/79 05/21/24 14:45 Pulse Ox 98 05/21/24 14:45 FiO2 Intake & Output 05/20/24 05/21/24 05/21/24 18:59 06:59 18:59 Intake Total 1236 118 Balance 1236 118 Intake: Oral 1236 118 Other: Voiding Method Toilet Toilet # Voids 1 - Labs CBC & Chem 7: 05/20/24 04:40 05/20/24 04:40 Labs: Microbiology - Last 24 Hours (Table) 05/19/24 10:58 Blood Culture - Preliminary Blood
[2024-05-21] MEDS: CALCIUM CARBONATE 500 MG CHEWABLE PO PRN (22:35)
[2024-05-22 08:03] LABS: African American GFR (CKD) >90 (>60 ml/min/1.73 sqM); Non-African American GFR(CKD) >90 (>60 ml/min/1.73 sqM)
--- NOTE | 2024-05-22 09:29 | P.PN ---
Subjective Progress Note Date: 05/21/24 Principal diagnosis: Reason for follow-up is left chest wall/pacemaker site cellulitis Patient is a 78-year-old female with a past medical history significant for osteoarthritis reflux fibromyalgia seizure disorder valvular heart disease with aortic and mitral regurgitation hypertension bradycardia who recently did have a permanent pacemaker placement at [facility] on 03/15/2024 apparently did have evidence of bruising on a follow-up with cardiology now beginning to the hospital concerning for cellulitis to the pacemaker site. On today's evaluation that is 05/21/2024,the patient denies any fever or any chills, patient is breathing comfortably on room air, the patient denies chest pain shortness of breath and no significant cough, patient denies abdominal pain, no nausea vomiting or diarrhea. Patient mention redness to the left chest wall pacemaker site has decreased in intensity and denies pain, no drainage. Patient did not have any new labs blood cultures so far negative Objective - Vital Signs Vital signs: Vital Signs Temp 97.5 F L 05/21/24 07:00 Pulse 71 05/21/24 09:18 Resp 16 05/21/24 07:00 BP 133/73 05/21/24 09:18 Pulse Ox 100 05/21/24 07:00 FiO2 Intake & Output 05/20/24 05/21/24 05/21/24 18:59 06:59 18:59 Intake Total 1236 118 Balance 1236 118 Intake: Oral 1236 118 Other: Voiding Method Toilet Toilet # Voids 1 - Exam GENERAL DESCRIPTION: An elderly female lying in bed in no distress RESPIRATORY SYSTEM: Unlabored breathing , decreased breath sounds at bases HEART: S1 S2 regular rate and rhythm , left chest wall pacemaker site redness slightly decreased from the line placed around it ABDOMEN: Soft , no tenderness EXTREMITIES: No edema feet - Labs CBC & Chem 7: 05/20/24 04:40 05/22/24 06:50 Assessment and Plan (1) Infection of pacemaker pulse generator site Current Visit: Yes Status: Acute Code(s): T82.7XXA - INFECT/INFLM REACT D/T OTH CARDI/VASC DEV/IMPLNT/GRFT, INIT SNOMED Code(s): 944177653 (2) Cellulitis of chest wall Current Visit: Yes Status: Acute Code(s): L03.313 - CELLULITIS OF CHEST WALL SNOMED Code(s): 93955202 Plan: 1patient presented to outside facility with left chest wall swelling and redne ss around the pacemaker site that was recently placed at the outside facility on 03/15/2024 and apparently noticed to have some bruising on the hospital follow-up visit now with concern for cellulitis as apparently the redness has decreased compared to yesterday after the patient has been on IV vancomycin as reported by the daughter more likely cellulitis from gram-positive skin marcy 2-blood culture has been obtained, the patient have elevated sed rate but CRP is normal 3-patient did have some clinical improvement we will arrange for PICC line and 2-week course of IV vancomycin on discharge and close outpatient follow-up Question concern answered Dictation was produced using [employer] dictation software. please excuse any grammatical, word or spelling errors. Time with Patient: Less than 30
--- NOTE | 2024-05-22 12:19 | P.PN ---
Subjective This is an 78-year-old female patient of Dr. 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 We have been asked to evaluate the patient for infected pacemaker site. Patient underwent [employer] dual permanent pacemaker implantation at [facility] on 03/15/2024. Patient had follow-up in the office on 03/23/2024. There was a small hematoma but no other postprocedural complications. Patient was concerned because she had bruising and redness yesterday to the site and was seen in the office by Dr. Avalos and was instructed to monitor for infection. Patient presented to [facility] due to concern for infection and has been transferred from [facility] for possible pacemaker site infection. Patient states that she has had on and off drainage from the lower part of the incision. Patient received vancomycin at [place]. CT did not show any abscess formation. She did test positive for COVID-19. No recent fever or chills. Patient has not been started on antibiotics. She has been placed on the observation unit. Blood pressure 150/85, heart rate 67, pulse ox 100% on room air, afebrile. EKG: Sinus rhythm with first-degree blocks 65 bpm, left bundle branch block. Laboratory studies: WBC 4.1, hemoglobin 10.7, platelet count 171. Sodium 138, potassium 3.8, creatinine 0.43. AST 50 and ALT 48. Lactic acid 0.7. Home cardiac medications from last office visit dated 03/23/2024: Amlodipine 2.5 mg daily, Lipitor 80 mg daily, Plavix 75 mg daily. Echocardiogram performed 03/30/2023 revealed normal EF, mild AR, mild MR. [employer] pacemaker dual-chamber implantation on 03/15/2024 at [facility] Lexiscan Cardiolite stress test 03/26/2023 normal. 05/20 Patient has been evaluated by Dr. Locke and started on vancomycin. Blood pressure 148/78, heart rate 63, pulse ox 98% on room air. Patient remains afebrile. Sed rate 31 and procalcitonin 0.03. Blood culture is status received. 05/21 patient seen and examined. Patient denies any chest pain or pressure. Her pacemaker site is less red. She denies any pain around the site. No fevers or chills. Blood culture to date is negative. Remains on vancomycin. 05/22 patient seen and examined. Patient states her site became somewhat more swollen and hot and painful overnight. She denies any movement or anything that exacerbated this. It does not appear significantly more swollen. She has had a number of issues however with bleeding in the past including with her recent carotid endarterectomy. Do not see clear-cut evidence of hematoma however if she does have increased swelling and concern of hematoma with may consider sto pping the Plavix temporarily. Blood cultures negative today. Physical examination: Gen: This is an 78-year-old female in no acute distress VS: reviewed HEENT: Head is atraumatic, normocephalic. Pupils equal, round. Sclerae is anicteric. NECK: Supple. No JVD. LUNGS: Clear to auscultation. No wheezes or rhonchi. No intercostal retractions. HEART: Regular rate and rhythm. Systolic murmur. Pacemaker site to the left upper anterior chest wall reveals mild ecchymosis, edema no redness and no te nderness. ABDOMEN: Soft No tenderness. EXTREMITIES: No pedal edema. No calf tenderness. NEUROLOGICAL: Patient is awake, alert and oriented x3. Assessment: Possible pacemaker site infection Valvular heart disease with aortic and mitral regurgitation Borderline dilated thoracic aorta Hypertension Dyslipidemia Carotid atherosclerosis Bradycardia status post permanent pacemaker Plan: continue with IV antibiotics per infectious disease, likely 2 weeks. Unless patient has persistent bacteremia no current indications for pacemaker extraction. patient did have some increasing swelling and continue to monitor. Does not appear clear-cut from any hematoma however she has had a number of bleeding issues in the past. If gets more significant may consider stopping her Plavix temporarily. Discussed using ice pack or compression of the gets any worse. Further recommendations to follow based upon clinical course Objective - Vital Signs Vital signs: Vital Signs Temp 98.0 F 05/22/24 08:00 Pulse 68 05/22/24 08:00 Resp 16 05/22/24 08:00 BP 172/94 05/22/24 08:00 Pulse Ox 98 05/22/24 08:00 FiO2 Intake & Output 05/21/24 05/22/24 05/22/24 18:59 06:59 18:59 Intake Total 236 118 Balance 236 118 Intake: Oral 236 118 Other: Voiding Method Toilet Toilet # Voids 4 2 # Bowel Movements 1 1 - Labs CBC & Chem 7: 05/20/24 04:40 05/22/24 06:50 Labs: Abnormal Lab Results - Last 24 Hours (Table) 05/22/24 Range/Units 06:50 Creatinine 0.46 L (0.52-1.04) mg/dL Microbiology - Last 24 Hours (Table) 05/19/24 10:58 Blood Culture - Preliminary Blood
--- NOTE | 2024-05-22 14:58 | P.PN ---
Subjective Progress Note Date: 05/22/24 Principal diagnosis: Reason for follow-up is left chest wall/pacemaker site cellulitis Patient is a 78-year-old female with a past medical history significant for osteoarthritis reflux fibromyalgia seizure disorder valvular heart disease with aortic and mitral regurgitation hypertension bradycardia who recently did have a permanent pacemaker placement at [facility] on 03/15/2024 apparently did have evidence of bruising on a follow-up with cardiology now beginning to the hospital concerning for cellulitis to the pacemaker site. On today's evaluation that is 05/22/2024,the patient remains to be afebrile, patient is on room air not requiring supplemental oxygen and denies any shortness of breath patient mention having increasing redness to the left chest wall site of the pacemaker last night denies having any worsening pain or cough.Patient denies having any nausea or vomiting, no abdominal pain and no diarrhea has been reported. Patient did have a creatinine 0.46 Vanco trough of 13.1 blood culture 4 negative Objective - Vital Signs Vital signs: Vital Signs Temp 98.0 F 05/22/24 08:00 Pulse 68 05/22/24 08:00 Resp 16 05/22/24 08:00 BP 172/94 05/22/24 08:00 Pulse Ox 98 05/22/24 08:00 FiO2 Intake & Output 05/21/24 05/22/24 05/22/24 18:59 06:59 18:59 Intake Total 236 118 Balance 236 118 Intake: Oral 236 118 Other: Voiding Method Toilet Toilet # Voids 4 2 # Bowel Movements 1 1 - Exam GENERAL DESCRIPTION: An elderly female lying in bed in no distress RESPIRATORY SYSTEM: Unlabored breathing , decreased breath sounds at bases HEART: S1 S2 regular rate and rhythm , left chest wall pacemaker site redness slightly increased from the line placed around it ABDOMEN: Soft , no tenderness EXTREMITIES: No edema feet - Labs CBC & Chem 7: 05/20/24 04:40 05/22/24 06:50 Labs: Abnormal Lab Results - Last 24 Hours (Table) 05/22/24 Range/Units 06:50 Creatinine 0.46 L (0.52-1.04) mg/dL Microbiology - Last 24 Hours (Table) 05/19/24 10:58 Blood Culture - Preliminary Blood Assessment and Plan (1) Infection of pacemaker pulse generator site Current Visit: Yes Status: Acute Code(s): T82.7XXA - INFECT/INFLM REACT D/T OTH CARDI/VASC DEV/IMPLNT/GRFT, INIT SNOMED Code(s): 507831948 (2) Cellulitis of chest wall Current Visit: Yes Status: Acute Code(s): L03.313 - CELLULITIS OF CHEST WALL SNOMED Code(s): 21343824 Plan: 1patient presented to outside facility with left chest wall swelling and redness around the pacemaker site that was recently placed at the outside facility on 03/15/2024 and apparently noticed to have some bruising on the hospital follow-up visit now with concern for cellulitis as apparently the redness has decreased compared to yesterday after the patient has been on IV vancomycin as reported by the daughter more likely cellulitis from gram-positive skin marcy 2-blood culture has been obtained, the patient have elevated sed rate but CRP is normal 3-patient noticed to have slight worsening of the erythema we will add cefepime for gram-negative coverage and will reevaluate the area tomorrow multiple question concern also also discussed with the cardiology Dictation was produced using [employer] dictation software. please excuse any gramm atical, word or spelling errors. Time with Patient: Less than 30
[2024-05-22] MEDS: CEFEPIME 2 GM in SODIUM CHLORIDE 0.9% 100 ML IVPB SCH (15:50)
--- NOTE | 2024-05-23 07:11 | P.PN ---
Subjective Progress Note Date: 05/22/24 patient fabi 78-year-old lady with past medical history significant for hyperlipidemia, permanent pacemaker placement. The ER as a transfer from [facility] for possible pacemaker site infection. Patient stated that she was all right 2 days ago when she started noticing that there was redness and warmth around the pacemaker site. Patient stated that at that time she became concerned and called her primary presser cotton ginning office who told her to come to the office where pacemaker was checked and evaluated and there was nothing found to be wrong with it. Patient denied having any fevers or chills at time. Over the following days patient noticed that the erythema and swelling around the p acemaker site worsened. Because of worsening symptoms she went to [facility] where she had a CT scan done that did not show any abscess formation. Patient was sent to [facility] further evaluation Initial lab work done in the ER showed WBC 4.1, hemoglobin 9.7, platelet count 171, sodium 1 3, potassium 3.8, BUN 9, creatinine 0.43, glucose 89, AST 50, ALT 48, albumin 3.4 EKG done in the ER showed heart rate of 65, no ST segment elevation or depression seen, no T-wave inversions seen. Patient admitted to internal medicine service 05/20. Patient seen examined. States pain and redness of left-sided chest wall has improved. 05/21. Patient seen and examined. Redness of left chest wall has improved. Blood cultures are negative. ID recommended keeping patient on current IV vancomycin 05/22/2024 Patient seen and evaluated in follow-up today with cardiology as well as infectious disease following. Patient was a transfer from [place] with concerns of an infected pacemaker site with cardiology and infectious disease following. Patient is maintained on IV antibiotics. Patient is concerned there is continued redness noted on the chest site and area is marked. Patient is afebrile and white count is normal. Will follow-up with repeat labs and continue to monitor with possible discharge planning in 24 hours REVIEW OF SYSTEMS: CONSTITUTIONAL: No fever, no malaise,. CARDIOVASCULAR: No chest pain, no palpitations, no syncope. PULMONARY: No shortness of breath, no cough, GASTROINTESTINAL: No diarrhea, no nausea, no vomiting, no abdominal pain. NEUROLOGICAL: No headaches, no weakness, PHYSICAL EXAMINATION: GENERAL: The patient is alert and oriented x3, not in any acute distress. Well developed, well nourished. HEENT: Pupils are round and equally reacting to light. EOMI. No scleral icterus. No conjunctival pallor. Normocephalic, atraumatic. No pharyngeal erythema. No thyromegaly. CARDIOVASCULAR: S1 and S2 present. No murmurs, rubs, or gallops. Left-sided pacemaker pocket erythema seen PULMONARY: Chest is clear to auscultation, no wheezing or crackles. ABDOMEN: Soft, nontender, nondistended, normoactive bowel sounds. No palpable organomegaly. MUSCULOSKELETAL: No joint swelling or deformity. EXTREMITIES: No cyanosis, clubbing, or pedal edema. NEUROLOGICAL: Gross neurological examination did not reveal any focal deficits. SKIN: No rashes. Assessment: Cellulitis of left chest wall. 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 White count has normalized and patient remains afebrile Patient will receive a PICC line and continue on IV antibiotics outpatient Recommend monitoring overnight for any further worsening of redness and will discuss further with infectious disease regarding discharge planning Blood cultures are negative. Probable discharge in 24 hours The impression and plan of care has been dictated by Trista Cain, Nurse Practitioner as directed. Dr. Osiel MD I have performed a history and examination and MDM of this patient, discussed the same with the dictator, and agree with the dictator's assessment and plan as written ,documented as a scribe. Based on total visit time, I have performed more than 50% of the visit. Objective - Vital Signs Vital signs: Vital Signs Temp 98.0 F 05/22/24 08:00 Pulse 68 05/22/24 08:00 Resp 16 05/22/24 08:00 BP 172/94 05/22/24 08:00 Pulse Ox 98 05/22/24 08:00 FiO2 Intake & Output 05/21/24 05/22/24 05/22/24 18:59 06:59 18:59 Intake Total 236 118 Balance 236 118 Intake: Oral 236 118 Other: Voiding Method Toilet Toilet # Voids 4 2 # Bowel Movements 1 1 - Labs CBC & Chem 7: 05/20/24 04:40 05/22/24 06:50 Labs: Abnormal Lab Results - Last 24 Hours (Table) 05/22/24 Range/Units 06:50 Creatinine 0.46 L (0.52-1.04) mg/dL Microbiology - Last 24 Hours (Table) 05/19/24 10:58 Blood Culture - Preliminary Blood
[2024-05-23 09:03] LABS: Basophils # (A) 0.04 X 10*3/uL (0.00-0.10); Basophils % (A) 0.7 %; HCT 36.3 % (37.2-46.3); HGB 11.9 g/dL (12.0-15.0); Lymphocytes # (A) 1.06 X 10*3/uL (0.90-5.00); Lymphocytes % (A) 17.6 %; MCH 28.5 pg (27.0-32.0); MCHC 32.8 g/dL (32.0-37.0); MCV 86.8 FL (80.0-97.0); Mean Platelet Volume 9.2 FL (9.5-12.2); Monocytes # (A) 0.52 X 10*3/uL (0.20-1.00); Monocytes % (A) 8.6 %; NRBC Per 100 WBC 0 X 10*3/uL (0.00-0.01); Neutrophils % (A) 67.9 %; Platelet Count 209 X 10*3/uL (140-440); RBC 4.18 X 10*6/uL (4.10-5.20); RDW 13.7 % (11.5-14.5); WBC 6.03 X 10*3/uL (4.50-10.00)
[2024-05-23 09:26] LABS: BUN/Creat Ratio 16.67 Ratio (12.00-20.00); Calcium 8.5 mg/dL (8.7-10.3); Carbon Dioxide 23.2 mmol/L (21.6-31.8); Chloride 106 mmol/L (96-109); Glucose 110 mg/dL (70-110); Magnesium 1.8 mg/dL (1.5-2.4); Potassium 3.8 mmol/L (3.5-5.5); Sodium 141 mmol/L (135-145)
[2024-05-23 09:56] LABS: African American GFR (CKD) >90 (>60 ml/min/1.73 sqM); Non-African American GFR(CKD) >90 (>60 ml/min/1.73 sqM)
[2024-05-23] MEDS: VANCOMYCIN TROUGH DUE 1 EACH MISC MISCELLANE ONE (10:38)
--- NOTE | 2024-05-23 12:19 | P.PN ---
Subjective Progress Note Date: 05/23/24 Principal diagnosis: Reason for follow-up is left chest wall/pacemaker site cellulitis Patient is a 78-year-old female with a past medical history significant for osteoarthritis reflux fibromyalgia seizure disorder valvular heart disease with aortic and mitral regurgitation hypertension bradycardia who recently did have a permanent pacemaker placement at [facility] on 03/15/2024 apparently did have evidence of bruising on a follow-up with cardiology now beginning to the hospital concerning for cellulitis to the pacemaker site. On today's evaluation that is 05/23/2024, the patient continues to be afebrile, the patient is on room air and breathing comfortably, the Pt denies having any chest pain or cough, the patient denies having any abdominal pain no vomiting or any diarrhea, erythema to the left chest wall pacemaker site is about the same did not mention significant improvement. Patient white count 6.03, creatinine 0.6 blood culture so far negative Objective - Vital Signs Vital signs: Vital Signs Temp 97.7 F 05/23/24 07:24 Pulse 62 05/23/24 07:24 Resp 16 05/23/24 07:24 BP 161/82 05/23/24 07:24 Pulse Ox 97 05/23/24 07:24 FiO2 Intake & Output 05/22/24 05/23/24 05/23/24 18:59 06:59 18:59 Intake Total 236 118 Balance 236 118 Intake: Oral 236 118 Other: Voiding Method Toilet # Voids 7 3 # Bowel Movements 1 1 - Exam GENERAL DESCRIPTION: An elderly female lying in bed in no distress RESPIRATORY SYSTEM: Unlabored breathing , decreased breath sounds at bases HEART: S1 S2 regular rate and rhythm , left chest wall pacemaker site redness slightly increased from the line placed around it ABDOMEN: Soft , no tenderness EXTREMITIES: No edema feet - Labs CBC & Chem 7: 05/23/24 05:41 05/23/24 09:19 Labs: Abnormal Lab Results - Last 24 Hours (Table) 05/23/24 05/23/24 Range/Units 05:41 05:41 Hgb 11.9 L (12.0-15.0) g/dL Hct 36.3 L (37.2-46.3) % MPV 9.2 L (9.5-12.2) FL Calcium 8.5 L (8.7-10.3) mg/dL Microbiology - Last 24 Hours (Table) 05/19/24 10:58 Blood Culture - Preliminary Blood Assessment and Plan (1) Infection of pacemaker pulse generator site Current Visit: Yes Status: Acute Code(s): T82.7XXA - INFECT/INFLM REACT D/T OTH CARDI/VASC DEV/IMPLNT/GRFT, INIT SNOMED Code(s): 498068393 (2) Cellulitis of chest wall Current Visit: Yes Status: Acute Code(s): L03.313 - CELLULITIS OF CHEST WALL SNOMED Code(s): 77182218 Plan: 1patient presented to outside facility with left chest wall swelling and redness around the pacemaker site that was recently placed at the outside facility on 03/15/2024 and apparently noticed to have some bruising on the hospital follow-up visit now with concern for cellulitis as apparently the redness has decreased compared to yesterday after the patient has been on IV vancomycin as reported by the daughter more likely cellulitis from gram-positive skin marcy 2-blood culture has been obtained, the patient have elevated sed rate but CRP is normal 3-patient noticed to have slight worsening of the erythema we will add cefepime yesterday still did not have significant improvement we will switch vancomycin to daptomycin and see response and evaluate the patient tomorrow discussed with SEALING MACHINE OPERATOR for admitting team Dictation was produced using [employer] dictation software. please excuse any grammatical, word or spelling errors. Time with Patient: Less than 30
--- NOTE | 2024-05-23 12:24 | P.PN ---
Subjective HISTORY OF PRESENT ILLNESS: This is an 78-year-old female patient of Dr. 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 We have been asked to evaluate the patient for infected pacemaker site. Patient underwent [employer] dual permanent pacemaker implantation at [facility] on 03/15/2024. Patient had follow-up in the office on 03/23/2024. There was a small hematoma but no other postprocedural complications. Patient was concerned because she had bruising and redness yesterday to the site and was seen in the office by Dr. Avalos and was instructed to monitor for infection. Patient presented to [facility] due to concern for infection and has been transferred from [facility] for possible pacemaker site infection. Patient states that she has had on and off drainage from the lower part of the incision. Patient received vancomycin at [place]. CT did not show any abscess formation. She did test positive for COVID-19. No recent fever or chills. Patient has not been started on antibiotics. She has been placed on the observation unit. Blood pressure 150/85, heart rate 67, pulse ox 100% on room air, afebrile. EKG: Sinus rhythm with first-degree blocks 65 bpm, left bundle branch block. Laboratory studies: WBC 4.1, hemoglobin 10.7, platelet count 171. Sodium 138, potassium 3.8, creatinine 0.43. AST 50 and ALT 48. Lactic acid 0.7. Home cardiac medications from last office visit dated 03/23/2024: Amlodipine 2.5 mg daily, Lipitor 80 mg daily, Plavix 75 mg daily. Echocardiogram performed 03/30/2023 revealed normal EF, mild AR, mild MR. [employer] pacemaker dual-chamber implantation on 03/15/2024 at [facility] Lexiscan Cardiolite stress test 03/26/2023 normal. 05/20 Patient has been evaluated by Dr. Locke and started on vancomycin. Blood pressure 148/78, heart rate 63, pulse ox 98% on room air. Patient remains afebrile. Sed rate 31 and procalcitonin 0.03. Blood culture is status received. 05/21 patient seen and examined. Patient denies any chest pain or pressure. Her pacemaker site is less red. She denies any pain around the site. No fevers or chills. Blood culture to date is negative. Remains on vancomycin. 05/22 patient seen and examined. Patient states her site became somewhat more swollen and hot and painful overnight. She denies any movement or anything that exacerbated this. It does not appear significantly more swollen. She has had a number of issues however with bleeding in the past including with her recent carotid endarterectomy. Do not see clear-cut evidence of hematoma however if she does have increased swelling and concern of hematoma with may consider stopping the Plavix temporarily. Blood cultures negative today. 05/23/2024 Patient examined this morning at the bedside. Patient states she is feeling better today. She reports that she used an ice pack to her pacemaker site yesterday with improvement in her discomfort. PHYSICAL EXAM: VITAL SIGNS: Reviewed. GENERAL: Well-developed in no acute distress. NECK: Supple. No JVD or thyromegaly LUNGS: Respirations even and unlabored. Lungs essentially clear to auscultation bilaterally. HEART: Regular rate and rhythm. S1 and S2 heard. Systolic murmur. Pacemaker site to the left upper anterior chest wall reveals mild ecchymosis, edema no redness and no tenderness. EXTREMITIES: Normal range of motion. No clubbing or cyanosis. Peripheral pulses intact. 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 Arnett Nurse practitioner note has been reviewed by physician. Signing provider agrees with the documented findings, assessment, and plan of care documented by CLINICAL PRACTITIONER as a scribe. Objective - Vital Signs Vital signs: Vital Signs Temp 97.7 F 05/23/24 07:24 Pulse 62 05/23/24 07:24 Resp 16 05/23/24 07:24 BP 161/82 05/23/24 07:24 Pulse Ox 97 05/23/24 07:24 FiO2 Intake & Output 05/22/24 05/23/24 05/23/24 18:59 06:59 18:59 Intake Total 236 118 Balance 236 118 Intake: Oral 236 118 Other: Voiding Method Toilet # Voids 7 3 # Bowel Movements 1 1 - Labs CBC & Chem 7: 05/23/24 05:41 05/23/24 09:19 Labs: Abnormal Lab Results - Last 24 Hours (Table) 05/23/24 05/23/24 Range/Units 05:41 05:41 Hgb 11.9 L (12.0-15.0) g/dL Hct 36.3 L (37.2-46.3) % MPV 9.2 L (9.5-12.2) FL Calcium 8.5 L (8.7-10.3) mg/dL Microbiology - Last 24 Hours (Table) 05/19/24 10:58 Blood Culture - Preliminary Blood
[2024-05-24 03:34] VITALS: RESP 16
--- NOTE | 2024-05-24 05:34 | P.PN ---
Subjective Progress Note Date: 05/23/24 patient fabi 78-year-old lady with past medical history significant for hyperlipidemia, permanent pacemaker placement. The ER as a transfer from [facility] for possible pacemaker site infection. Patient stated that she was all right 2 days ago when she started noticing that there was redness and warmth around the pacemaker site. Patient stated that at that time she became concerned and called her primary build automation engineer office who told her to come to the office where pacemaker was checked and evaluated and there was nothing found to be wrong with it. Patient denied having any fevers or chills at time. Over the following days patient noticed that the erythema and swelling around the p acemaker site worsened. Because of worsening symptoms she went to [facility] where she had a CT scan done that did not show any abscess formation. Patient was sent to [facility] further evaluation Initial lab work done in the ER showed WBC 4.1, hemoglobin 9.7, platelet count 171, sodium 1 3, potassium 3.8, BUN 9, creatinine 0.43, glucose 89, AST 50, ALT 48, albumin 3.4 EKG done in the ER showed heart rate of 65, no ST segment elevation or depression seen, no T-wave inversions seen. Patient admitted to internal medicine service 05/20. Patient seen examined. States pain and redness of left-sided chest wall has improved. 05/21. Patient seen and examined. Redness of left chest wall has improved. Blood cultures are negative. ID recommended keeping patient on current IV vancomycin 05/22/2024 Patient seen and evaluated in follow-up today with cardiology as well as infectious disease following. Patient was a transfer from [place] with concerns of an infected pacemaker site with cardiology and infectious disease following. Patient is maintained on IV antibiotics. Patient is concerned there is continued redness noted on the chest site and area is marked. Patient is afebrile and white count is normal. Will follow-up with repeat labs and continue to monitor with possible discharge planning in 24 hours 05/23/2024 Patient is seen in follow-up today with cardiology and infectious disease following. Blood cultures remain negative and cardiology has signed off recommending outpatient follow-up with her build automation engineer Dr. Arnett with no plans of pacemaker removal at this time. Patient to continue on antibiotics with infectious disease following although no significant improvement will be transitioning to daptomycin and recommend monitoring overnight for further improvements in redness and tenderness of the left chest wall site. Patient does have a PICC line and will be going on antibiotics per ID recommendations. Patient is afebrile with no reports of chest pain or palpitations. Patient has been up and walking with no reports of shortness of breath. Denies nausea or vomiting and has been tolerating diet. REVIEW OF SYSTEMS: CONSTITUTIONAL: No fever, no malaise,. CARDIOVASCULAR: No chest pain, no palpitations, no syncope. Reports of chest wall tenderness on the left near the pacemaker site with redness PULMONARY: No shortness of breath, no cough, GASTROINTESTINAL: No diarrhea, no nausea, no vomiting, no abdominal pain. NEUROLOGICAL: No headaches, no weakness, PHYSICAL EXAMINATION: GENERAL: The patient is alert and oriented x3, not in any acute distress. Anxious, well developed, well nourished. HEENT: Pupils are round and equally reacting to light. EOMI. No scleral icterus. No conjunctival pallor. Normocephalic, atraumatic. No pharyngeal erythema. No thyromegaly. CARDIOVASCULAR: S1 and S2 present. No murmurs, rubs, or gallops. Left-sided pacemaker pocket erythema seen, no worsening PULMONARY: Chest is clear to auscultation, no wheezing or crackles. ABDOMEN: Soft, nontender, nondistended, normoactive bowel sounds. No palpable organomegaly. MUSCULOSKELETAL: No joint swelling or deformity. EXTREMITIES: No cyanosis, clubbing, or pedal edema. NEUROLOGICAL: Gross neurological examination did not reveal any focal deficits. SKIN: No rashes. Assessment: Cellulitis of left chest wall. 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 Cardiology has signed off recommending outpatient follow-up with her build automation engineer Dr. Arnett Some noted redness and tenderness on the left side of the chest wall and neck area that persists and patient is extremely concerned. White count has normalized and patient remains afebrile. Patient has received a PICC line with infectious disease following with no significant improvement in the redness from yesterday, hence infectious disease transitioning antibiotics to daptomycin Recommend monitoring overnight for any further worsening of redness and will discuss further with infectious disease regarding discharge planning Blood cultures are negative. Probable discharge in 24 hours The impression and plan of care has been dictated by Trista Cain, Nurse Practitioner as directed. Dr. Veronica MD I have performed a history and examination and MDM of this patient, discussed the same with the dictator, and agree with the dictator's assessment and plan as written ,documented as a scribe. Based on total visit time, I have performed more than 50% of the visit. Objective - Vital Signs Vital signs: Vital Signs Temp 98.2 F 05/24/24 03:07 Pulse 65 05/24/24 03:07 Resp 16 05/24/24 03:07 BP 126/75 05/24/24 03:07 Pulse Ox 96 05/24/24 03:07 FiO2 Intake & Output 05/23/24 05/23/24 05/24/24 06:59 18:59 06:59 Intake Total 236 480 Balance 236 480 Intake: Oral 236 480 Other: Voiding Method Toilet # Voids 3 5 # Bowel Movements 1 1 - Labs CBC & Chem 7: 05/23/24 05:41 05/23/24 09:19 Labs: Abnormal Lab Results - Last 24 Hours (Table) 05/23/24 05/23/24 Range/Units 05:41 05:41 Hgb 11.9 L (12.0-15.0) g/dL Hct 36.3 L (37.2-46.3) % MPV 9.2 L (9.5-12.2) FL Calcium 8.5 L (8.7-10.3) mg/dL Microbiology - Last 24 Hours (Table) 05/19/24 10:58 Blood Culture - Preliminary Blood
[2024-05-24 07:41] VITALS: BP 171/79; PULSE 67; TEMP 98
--- NOTE | 2024-05-24 12:44 | P.PN ---
Subjective Progress Note Date: 05/24/24 Principal diagnosis: Reason for follow-up is left chest wall/pacemaker site cellulitis Patient is a 78-year-old female with a past medical history significant for osteoarthritis reflux fibromyalgia seizure disorder valvular heart disease with aortic and mitral regurgitation hypertension bradycardia who recently did have a permanent pacemaker placement at [facility] on 03/15/2024 apparently did have evidence of bruising on a follow-up with cardiology now beginning to the hospital concerning for cellulitis to the pacemaker site. On today's evaluation that is 05/24/2024, Patient is afebrile patient is currently on room air and denies having any shortness of breath, the patient denies any chest pain or cough, the patient denies any nausea vomiting did not have any abdominal pain and no diarrhea, the patient left chest wall pacemaker site redness slightly decreased pain has decreased feeling better wants to go home. Patient did have creatinine 0.5 the white count was 6.03 as of yesterday blood culture has been negative Objective - Vital Signs Vital signs: Vital Signs Temp 98.0 F 05/24/24 07:39 Pulse 67 05/24/24 07:39 Resp 16 05/24/24 07:39 BP 171/79 05/24/24 07:39 Pulse Ox 96 05/24/24 07:39 FiO2 Intake & Output 05/23/24 05/24/24 05/24/24 18:59 06:59 18:59 Intake Total 236 480 118 Balance 236 480 118 Intake: Oral 236 480 118 Other: # Voids 5 # Bowel Movements 1 - Exam GENERAL DESCRIPTION: An elderly female lying in bed in no distress RESPIRATORY SYSTEM: Unlabored breathing , decreased breath sounds at bases HEART: S1 S2 regular rate and rhythm , left chest wall pacemaker site redness slightly decreased no drainage ABDOMEN: Soft , no tenderness EXTREMITIES: No edema feet - Labs CBC & Chem 7: 05/23/24 05:41 05/23/24 09:19 Labs: Microbiology - Last 24 Hours (Table) 05/19/24 10:58 Blood Culture - Preliminary Blood Assessment and Plan (1) Infection of pacemaker pulse generator site Current Visit: Yes Status: Acute Code(s): T82.7XXA - INFECT/INFLM REACT D/T OTH CARDI/VASC DEV/IMPLNT/GRFT, INIT SNOMED Code(s): 195457165 (2) Cellulitis of chest wall Current Visit: Yes Status: Acute Code(s): L03.313 - CELLULITIS OF CHEST WALL SNOMED Code(s): 88890875 Plan: 1patient presented to outside facility with left chest wall swelling and redness around the pacemaker site that was recently placed at the outside facility on 03/15/2024 and apparently noticed to have some bruising on the hospital follow-up visit now with concern for cellulitis as apparently the redness has decreased compared to yesterday after the patient has been on IV vancomycin as reported by the daughter more likely cellulitis from gram-positive skin marcy 2-blood culture remains to be negative, the patient have elevated sed rate but CRP is normal 3-patient did have some improvement to the redness to the chest wall with the daptomycin we will consider 2-week course of daptomycin on discharge and had no need for cefepime with close outpatient follow-up before discontinuation of antibiotic if the patient did have a nonhealing, cellulitis or any worsening or any recurrent cellulitis after completion of antibiotic therapy then more likely she will need to have the pacemaker removed but at this point keeping in mind patient not running a fever culture has been negative and cellulitis has shown improvement is worthwhile to give a course of antibiotic therapy, this was explained to the patient and the daughter in layman terms and both agreed with the plan Dictation was produced using [employer] dictation software. please excuse any grammatical, word or spelling errors. Time with Patient: Less than 30
--- NOTE | 2024-05-24 12:56 | P.PN ---
Subjective HISTORY OF PRESENT ILLNESS: This is an 78-year-old female patient of Dr. 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 We have been asked to evaluate the patient for infected pacemaker site. Patient underwent [place] dual permanent pacemaker implantation at [facility] on 03/15/2024. Patient had follow-up in the office on 03/23/2024. There was a small hematoma but no other postprocedural complications. Patient was concerned because she had bruising and redness yesterday to the site and was seen in the office by Dr. Avalos and was instructed to monitor for infection. Patient presented to [facility] due to concern for infection and has been transferred from [facility] for possible pacemaker site infection. Patient states that she has had on and off drainage from the lower part of the incision. Patient received vancomycin at [place]. CT did not show any abscess formation. She did test positive for COVID-19. No recent fever or chills. Patient has not been started on antibiotics. She has been placed on the observation unit. Blood pressure 150/85, heart rate 67, pulse ox 100% on room air, afebrile. EKG: Sinus rhythm with first-degree blocks 65 bpm, left bundle branch block. Laboratory studies: WBC 4.1, hemoglobin 10.7, platelet count 171. Sodium 138, potassium 3.8, creatinine 0.43. AST 50 and ALT 48. Lactic acid 0.7. Home cardiac medications from last office visit dated 03/23/2024: Amlodipine 2.5 mg daily, Lipitor 80 mg daily, Plavix 75 mg daily. Echocardiogram performed 03/30/2023 revealed normal EF, mild AR, mild MR. [employer] [place] pacemaker dual-chamber implantation on 03/15/2024 at [facility] Lexiscan Cardiolite stress test 03/26/2023 normal. 05/20 Patient has been evaluated by Dr. Locke and started on vancomycin. Blood pressure 148/78, heart rate 63, pulse ox 98% on room air. Patient remains afebrile. Sed rate 31 and procalcitonin 0.03. Blood culture is status received. 05/21 patient seen and examined. Patient denies any chest pain or pressure. Her pacemaker site is less red. She denies any pain around the site. No fevers or chills. Blood culture to date is negative. Remains on vancomycin. 05/22 patient seen and examined. Patient states her site became somewhat more swollen and hot and painful overnight. She denies any movement or anything that exacerbated this. It does not appear significantly more swollen. She has had a number of issues however with bleeding in the past including with her recent carotid endarterectomy. Do not see clear-cut evidence of hematoma however if she does have increased swelling and concern of hematoma with may consider stopping the Plavix temporarily. Blood cultures negative today. 05/23/2024 Patient examined this morning at the bedside. Patient states she is feeling better today. She reports that she used an ice pack to her pacemaker site yesterday with improvement in her discomfort. 05/24 patient seen and examined. Patient denies any chest pain or pressure. Her sites is still red however believes somewhat better. No significant growth on blood culture. PHYSICAL EXAM: VITAL SIGNS: Reviewed. GENERAL: Well-developed in no acute distress. NECK: Supple. No JVD or thyromegaly LUNGS: Respirations even and unlabored. Lungs essentially clear to auscultation bilaterally. HEART: Regular rate and rhythm. S1 and S2 heard. Systolic murmur. Pacemaker site to the left upper anterior chest wall reveals mild ecchymosis, edema no redness and no tenderness. EXTREMITIES: Normal range of motion. No clubbing or cyanosis. Peripheral pulses intact. 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 Arnett likely DC home today and follow-up outpatient. Objective - Vital Signs Vital signs: Vital Signs Temp 98.0 F 05/24/24 07:39 Pulse 67 05/24/24 07:39 Resp 16 05/24/24 07:39 BP 171/79 05/24/24 07:39 Pulse Ox 96 05/24/24 07:39 FiO2 Intake & Output 05/23/24 05/24/24 05/24/24 18:59 06:59 18:59 Intake Total 236 480 118 Balance 236 480 118 Intake: Oral 236 480 118 Other: Voiding Method Toilet # Voids 5 # Bowel Movements 1 - Labs CBC & Chem 7: 05/23/24 05:41 05/23/24 09:19 Labs: Microbiology - Last 24 Hours (Table) 05/19/24 10:58 Blood Culture - Preliminary Blood
== END 2024-05-24 15:10 | disposition home health service (06) | DRG 314 ==
LOC: EC 23:35 → 6NMEDSUR 05-19 02:35 → OBSVTOIN 05-21 08:15
PROVIDERS: ADMIT Hospitalist; ATTEND Hospitalist
PROC: 02HV33Z Insertion of Infusion Device into Superior Vena Cava, Percutaneous Approach (ICD-10-PCS; principal; 2024-05-23)
PROC: B5181ZA Fluoroscopy of Superior Vena Cava using Low Osmolar Contrast, Guidance (ICD-10-PCS; 2024-05-23)
PROC: B548ZZA Ultrasonography of Superior Vena Cava, Guidance (ICD-10-PCS; 2024-05-23)
DX: T82.7XXA Infection and inflammatory reaction due to other cardiac and vascular devices, implants and grafts, initial encounter (principal); U07.1 COVID-19; L03.313 Cellulitis of chest wall; I10 Essential (primary) hypertension; Y83.1 Surgical operation with implant of artificial internal device as the cause of abnormal reaction of the patient, or of later complication, without mention of misadventure at the time of the procedure; Z95.0 Presence of cardiac pacemaker; Z88.1 Allergy status to other antibiotic agents; Z88.2 Allergy status to sulfonamides; Z91.040 Latex allergy status; Z91.048 Other nonmedicinal substance allergy status; M79.7 Fibromyalgia; G40.909 Epilepsy, unspecified, not intractable, without status epilepticus; E78.5 Hyperlipidemia, unspecified; I08.0 Rheumatic disorders of both mitral and aortic valves; I44.7 Left bundle-branch block, unspecified; I65.29 Occlusion and stenosis of unspecified carotid artery; Z79.02 Long term (current) use of antithrombotics/antiplatelets; Z79.899 Other long term (current) drug therapy; Z80.8 Family history of malignant neoplasm of other organs or systems; Z85.3 Personal history of malignant neoplasm of breast; Z90.13 Acquired absence of bilateral breasts and nipples; Z90.710 Acquired absence of both cervix and uterus; Z96.641 Presence of right artificial hip joint; Z96.653 Presence of artificial knee joint, bilateral; Z98.1 Arthrodesis status; Z88.5 Allergy status to narcotic agent
CPT/HCPCS: 36415; 36573; 80048; 80053; 80202; 82565; 83605; 83735; 84145; 85025; 85610; 85652; 85730; 86140; 87040; 93005; 96365; 96366; 99285

== ENCOUNTER 2024-05-31 11:49 | Inpatient (IN) | payer MEDICARE, OTHER ==
[~2024-05-31 11:49] MED LIST changes: -LACTATED RINGERS 1,000 ML IV SCH; +LIDOCAINE 1% (10MG/ML) FOR IV START INTRADERMA PRN
[2024-05-31] MEDS: IV FLUID CONTINUATION 1,000 ML IV ONE (12:21)
[2024-05-31 12:39] LABS: Glucose,Whole Blood 93 mg/dL (70-110)
[2024-05-31] MEDS: SODIUM CHLORIDE 0.9% 1,000 ML IV SCH ×2 (12:57→16:44)
[2024-05-31] MEDS ORDERED: PROPOFOL 10 MG/ML 20 ML VIAL IV ONE (14:37)
[2024-05-31] MEDS ORDERED: fentaNYL (PF) 50 MCG/ML 2 ML AMP ONE (14:37)
[2024-05-31] MEDS ORDERED: MIDAZOLAM 2 MG/2 ML VIAL ONE (14:37)
[2024-05-31] MEDS ORDERED: LIDOCAINE 1% INJ 10MG/ML (20 ML MDV) ONE ×3 (14:55→17:53)
[2024-05-31] MEDS: HEPARIN SODIUM,PORCINE (1 ML) 2,500 UNIT in SODIUM CHLORIDE 0.9% 250 ML IRRIGATION ONE (15:01)
[2024-05-31] MEDS: ceFAZolin 1 GM in SODIUM CHLORIDE 0.9% IRRIG BTL 250 ML IRRIGATION PRN (15:11)
[2024-05-31] MEDS: LIDOCAINE 1% INJ 10MG/ML (20 ML MDV) SQ ONE ×2 (15:22→17:48)
[2024-05-31] MEDS: ROPIVACAINE 5MG/ML 20ML VIAL MISCELLANE ONE (15:23)
--- NOTE | 2024-05-31 16:33 | P.EPPROC ---
- EP Procedure Note Electrophysiology Procedure Note: Diagnosis Infected dual-chamber pacemaker via left pectoral area Referred by Dr. RADHA Arnett Currently on daptomycin IV Procedure Patient was brought to the EP lab in a fasting state. Written informed consent was obtained prior to the procedure. The left pectoral area was prepped and draped as a protocol. 1 dose of IV Kefzol was given Under local anesthesia an incision was made directly over the previous incision and carried down to the level of the generator The generator was explanted The leads were freed from the surrounding tissue and the leads sleeves were slid back. The atrial lead was first unscrewed and with gradual manual traction extracted successfully The right ventricular lead was then unscrewed and with gradual manual traction the second lead was also extracted successfully Minimal oozing of bleeding from the access site The pocket was then inspected. Thick granulation tissue of infective region was noted Near-total debridement of the granulation tissue was performed down to the pectoralis muscle. The muscle appeared fresh and healthy The retaining silk sutures for the leads and the device were removed The pocket was irrigated with antibiotic solution Minimal oozing was noted An antibiotic pouch was placed in the pocket, laid directly on the pectoralis muscle The pacemaker pocket was then packed with 1 lap sponge 1 tacking silk suture to bring the edges closer, was applied Keep a 4 x 4 gauze was placed over this and a dressing was applied, nonocclusive Subsequently a 2D echo was performed No pericardial effusion No obvious masses on the tricuspid valve Plan Continue IV daptomycin every 24 hours ID consult Overnight stay and I will bring the patient back next week for removal of the packing and secondary closure of the wound if it is healed well and there is no signs of redness or inflammation on the skin After a minimum of 2 weeks of antibiotics, I will proceed with implantation of a leadless pacemaker and continue IV antibiotics thereafter per recommendations of infectious disease service
[2024-05-31] MEDS: droPERidol 5 MG/2 ML VIAL IVP ONE (16:34)
[2024-05-31] MEDS: LACTATED RINGERS 1,000 ML IV SCH (16:34)
[2024-05-31] MEDS: DEXAMETHASONE SOD PHOSPHATE 4 MG/ML 1 ML VIAL IV ONE (16:34)
[2024-05-31] MEDS: ONDANSETRON 4 MG/2 ML VIAL IVP ONE (16:34)
--- NOTE | 2024-05-31 17:17 | CA ---
Transthoracic Echo Report Name: Lu Ray Age: 78 Gender: F : 1945 Exam Date: 05/31/2024 16:10 Exam Location: [place] [facility] Ht (in): 64 Wt (lb): 144 Ordering Physician: Jed Montoya MD ([id number]) Attending/Referring Phys: Travel Counselor Aicha Bowen RDCS Procedure CPT: Indications: post pacemaker lead extraction Cardiac Hx: Technical Quality: Contrast 1: Total Dose (mL): Contrast 2: Total Dose (mL): MEASUREMENTS (Male / Female) Normal Values DOPPLER TR Peak Velocity 245.7 cm/s TR Peak Gradient 24.2 mmHg FINDINGS Left Ventricle Right Ventricle Right Atrium Left Atrium Mitral Valve Aortic Valve Tricuspid Valve Pulmonic Valve Pericardium No pericardial effusion. Aorta CONCLUSIONS No significant pericardial effusion noted on this study Previewed by: Dr. Walt Rueda MD (Electronically Signed) Final Date: 31 May 2024 17:16
[2024-05-31] MEDS: MIDAZOLAM 2 MG/2 ML VIAL IVP ONE (17:48)
[2024-05-31] MEDS: ACETAMINOPHEN IV (For NPO) 1,000 MG in EMPTY BAG 1 BAG IVPB ONE (18:20)
[2024-05-31] MEDS: PRAMIPEXOLE 1 MG TAB PO SCH (21:26)
[2024-05-31] MEDS: ACETAMINOPHEN TAB 325 MG TAB PO PRN (21:28)
[2024-06-01] MEDS: SODIUM CHLORIDE 0.9% 1,000 ML IV ONE (00:25)
[2024-06-01 01:58] LABS: Basophils % (A) 1 %; Eosinophils # (A) 0.2 k/uL (0-0.7); Eosinophils % (A) 3 %; HGB 8.8 gm/dL (11.4-16.0); Hypochromasia Marked; Lymphocytes # (A) 0.8 k/uL (1.0-4.8); Lymphocytes % (A) 14 %; MCH 28.4 pg (25.0-35.0); MCHC 31.3 g/dL (31.0-37.0); MCV 90.5 fL (80.0-100.0); Mean Platelet Volume 6.9; Monocytes # (A) 0.4 k/uL (0-1.0); Monocytes % (A) 7 %; Neutrophils # (A) 4.7 k/uL (1.3-7.7); Neutrophils % (A) 75 %; Platelet Count 199 k/uL (150-450); RBC 3.09 m/uL (3.80-5.40); RDW 14.2 % (11.5-15.5); WBC 6.3 k/uL (3.8-10.6)
[2024-06-01 02:09] LABS: African American GFR (CKD) >90 (>60 ml/min/1.73 sqM); Blood Urea Nitrogen 20 mg/dL (7-17); Non-African American GFR(CKD) >90 (>60 ml/min/1.73 sqM)
[2024-06-01] MEDS: SODIUM CHLORIDE 0.9% 1,000 ML IV SCH ×2 (02:27→08:43)
--- NOTE | 2024-06-01 07:32 | P.PN ---
Progress Note - Text Patient was in the bathroom on the commode when she collapsed and passed out briefly. No arrhythmias at that time. Her blood pressure was very low Subsequently she received a liter of fluids and then normal saline 100 cc/h and she is doing well. She is sitting comfortably at the edge of the bed without being dizzy or lightheaded She did have a significant amount of drainage from the infected pacemaker site that was debrided yesterday Pulse rate in the 70s, blood pressure 115/68 mmHg Her blood pressure was 95 mmHg at 11 PM On examination her heart sounds are normal Breath sounds are clear Impression History of presyncopal spells left bundle branch block sinus pauses status post dual-chamber pacemaker implantation at [facility] Pacemaker pocket infection initially treated with daptomycin. Infectious disease on consultation, patient has a PICC line, right arm Consulted by Dr. Arnett for evaluation infected pacemaker pocket Yesterday both pacemaker leads were extracted The pocket was debrided, antibiotic pouch was placed x 2 within the pocket The pocket was initially packed but there was a considerable amount of oozing and therefore it was redressed once again Hemoglobin 8.8 white count normal BUN 20 creatinine 0.5 Plan IV iron 1 dose Oral Tylenol for pain management A compression dressing was applied today Patient to be transferred to inpatient care and will be monitored over the weekend I will reexplore the dressing on Tuesday Hold aspirin Continue Plavix Patient has a history of stroke in the month of February etiology not known She is on statins She is getting daptomycin ID consult to comment on the dose and duration of daptomycin after complete removal of the pacemaker system followed by debridement DVT prophylaxis with sequential compressions bilateral IV fluids 50 cc an hour Recheck hemoglobin tomorrow
[2024-06-01] MEDS: SODIUM FERRIC GLUCONAT-SUCROSE 125 MG in SODIUM CHLORIDE 0.9% 100 ML IVPB ONE (08:42)
[2024-06-01] MEDS: CLOPIDOGREL 75 MG TAB PO SCH (13:25)
[2024-06-01] MEDS: ACETAMINOPHEN IV (For NPO) 1,000 MG in EMPTY BAG 1 BAG IVPB PRN (14:22)
[2024-06-01] MEDS: CEFEPIME 2 GM in SODIUM CHLORIDE 0.9% 100 ML IVPB SCH (16:17)
[2024-06-02 07:30] LABS: Basophils % (A) 1 %; Eosinophils # (A) 0.2 k/uL (0-0.7); Eosinophils % (A) 3 %; HCT 32.9 % (34.0-46.0); HGB 10.3 gm/dL (11.4-16.0); Hypochromasia Marked; Lymphocytes # (A) 1.2 k/uL (1.0-4.8); Lymphocytes % (A) 22 %; MCH 28.4 pg (25.0-35.0); MCHC 31.4 g/dL (31.0-37.0); MCV 90.6 fL (80.0-100.0); Mean Platelet Volume 6.8; Monocytes # (A) 0.4 k/uL (0-1.0); Monocytes % (A) 8 %; Neutrophils # (A) 3.5 k/uL (1.3-7.7); Neutrophils % (A) 64 %; Platelet Count 217 k/uL (150-450); RBC 3.63 m/uL (3.80-5.40); RDW 14.3 % (11.5-15.5); WBC 5.5 k/uL (3.8-10.6)
--- NOTE | 2024-06-02 08:49 | P.CONS ---
History of Present Illness - Reason for Consult Consult date: 06/01/24 PPM infection, lead extraction Requesting physician: Jed Montoya - Chief Complaint Left-sided pacemaker site pain and redness x days - History of Present Illness Patient is a 78-year-old female with a past medical history significant for hyperlipidemia CVA TIA fibromyalgia seizure disorder did have a recent bradycardia arrhythmia requiring pacemaker placement syncope admission to the hospital for left chest wall pacemaker site cellulitis treated with the da ptomycin with a blood culture negative did have some improvement subsequently discharged home on a course of IV antibiotic therapy apparently the patient has been evaluated by her caterer's aide in the outpatient setting and admitted the patient to the hospital for extraction of the pacemaker which was completed on 05/31/2024 and leads were extracted deep cultures obtained patient was continued on the daptomycin infectious disease was consulted for further management of antibiotic therapy. Patient denies having any fever or any sensation of the hospital and mention overall swelling and redness to the left chest wall pacemaker site has decreased in intensity since discharge from the hospital and did not have any worsening pain to the site after discharge from the hospital patient did have some problems with the bleeding after extraction of the pacemaker last night and the area has to be packed did have mild dull aching pain to the left chest wall at this point without any radiation no further bleeding denies any shortness of breath no nausea no vomiting no abdominal pain and no diarrhea Review of Systems Positive point and negatives has been mentioned in the HPI, complete review of systems was performed and all other systems are negative Past Medical History Past Medical History: Cancer, CVA/TIA, Fibromyalgia, GERD/Reflux, Hyperlipidemia, Musculoskeletal Disorder, Osteoarthritis (OA), Seizure Disorder Additional Past Medical History / Comment(s): Ringing in ears, Thyroid nodules, Hypoglycemia, migraines, sinus problems, ibs, endometriosis, back pain, last seizure 2005, BREAST CANCER 2011. no residual from TIA. see Dr Montoya H&P History of Any Multi-Drug Resistant Organisms: None Reported Past Surgical History: Bladder Surgery, Breast Surgery, Cholecystectomy, Hysterectomy, Joint Replacement, Orthopedic Surgery, Pacemaker Additional Past Surgical History / Comment(s): sinus surgery,colonoscopy , lapa roscopy, D&C, carpal tunnel Right, arthroscopic bilateral knees, galen Knee replacement-rt knee x2, Right rotator cuff, Bilateral mastectomy, pain clinic procedures. rt. hip -arthroscopic , prolapsed urethra surg./rt hip replacement/c spine fusion, carotid endartectomy Lt Past Anesthesia/Blood Transfusion Reactions: No Reported Reaction Type of Cardiac Device: Permanent Pacemaker Device Placement Date:: taken out 05/31 Past Psychological History: No Psychological Hx Reported Smoking Status: Never smoker Past Alcohol Use History: Occasional Past Drug Use History: None Reported - Past Family History Mother Family Medical History: No Reported History Additional Family Medical History / Comment(s): 101 ECF Daughter(s) Family Medical History: Cancer Additional Family Medical History / Comment(s): brain cancer Medications and Allergies Home Medications Medication Instructions Recorded Confirmed Type Atorvastatin [Lipitor] 40 mg PO HS 05/19/24 05/30/24 History Clopidogrel [Plavix] 75 mg PO DAILY 05/19/24 05/31/24 History Montelukast [Singulair] 10 mg PO HS 05/19/24 05/30/24 History Pramipexole [Mirapex] 2 mg PO HS 05/19/24 05/30/24 History DAPTOmycin [Cubicin] 250 mg IVPB Q24HR #14 each 05/24/24 05/30/24 Rx Acetaminophen [Tylenol Arthritis] 1 tab PO DIRECTED PRN 05/30/24 05/30/24 History Aspirin 81 mg PO HS 05/30/24 05/30/24 History Famotidine 20 mg PO BID 05/30/24 05/30/24 History Unk Areds Vitamin 1 tab PO BID 05/30/24 05/30/24 History Unk Multi Vitamin 1 tab PO DAILY 05/30/24 05/30/24 History Unk Vitamin D 1 tab PO DAILY 05/30/24 05/30/24 History Allergies Allergy/AdvReac Type Severity Reaction Status Date / Time erythromycin base Allergy Nausea Verified 05/31/24 12:58 [Erythromycin Base] topiramate [From Topamax] Allergy Itching Verified 05/31/24 12:58 codeine AdvReac Hallucinati Verified 05/31/24 12:58 ons Latex, Natural Rubber AdvReac Rash/Hives Verified 05/31/24 12:58 nortriptyline HCl AdvReac tremors Verified 05/31/24 12:58 [From Pamelor] pregabalin [From Lyrica] AdvReac very Verified 05/31/24 12:58 sleepy feeling tramadol AdvReac Unknown Verified 05/31/24 12:58 TRACE METALS Allergy PAIN AND Uncoded 05/31/24 12:58 SWELLING OF TISSUES TO KNEE WITH TOT KNEE REPLACE. morphine IM AdvReac red Uncoded 05/31/24 12:58 streaking @site tape AdvReac Rash/Hives Uncoded 05/31/24 12:58 Physical Exam Vitals: Vital Signs Temp Pulse Pulse Pulse Resp BP Pulse Ox 06/01/24 08:00 74 72 15 06/01/24 07:00 98.1 F 74 15 118/75 98 06/01/24 02:25 98.2 F 72 15 115/68 97 06/01/24 02:00 72 115/65 06/01/24 01:10 73 125/73 06/01/24 00:11 62 112/67 05/31/24 21:50 65 95/56 05/31/24 20:50 63 102/59 05/31/24 19:50 68 94/58 05/31/24 19:20 67 110/65 05/31/24 19:06 67 16 118/69 05/31/24 16:58 58 L 153/84 05/31/24 16:43 67 16 155/85 05/31/24 16:28 75 16 180/79 05/31/24 12:51 97.7 F 74 16 139/63 97 Intake and Output 05/31/24 06/01/24 06/01/24 22:59 06:59 14:59 Intake Total 50 780 Balance 50 780 Intake: IV 50 Oral 780 Other: Voiding Method Toilet # Voids 3 1 GENERAL DESCRIPTION: Elderly female up in bed, no distress. No tachypnea or accessory muscle of respiration use. HEENT: Shows Pallor , no scleral icterus. Oral mucous membrane is dry. No pharyngeal erythema or thrush NECK: Trachea central, no thyromegaly. LUNGS: Unlabored breathing. Clear to auscultation anteriorly. No wheeze or crackle. HEART: S1, S2, regular rate and rhythm. Left-sided previous pacemaker site is currently dressed ABDOMEN: Soft, no tenderness , guarding or rigidity, no organomegaly EXTREMITIES: No edema of feet. SKIN: No rash, no masses palpable. NEUROLOGICAL: The patient is awake, alert, oriented x3, mood and affect normal. Results CBC & Chem 7: 06/02/24 07:07 06/01/24 00:34 Labs: Abnormal Lab Results - Last 24 Hours (Table) 06/01/24 06/01/24 Range/Units 00:34 00:34 RBC 3.09 L (3.80-5.40) m/uL Hgb 8.8 L D (11.4-16.0) gm/dL Hct 28.0 L (34.0-46.0) % Lymphocytes # 0.8 L (1.0-4.8) k/uL BUN 20 H (7-17) mg/dL Microbiology - Last 24 Hours (Table) 05/31/24 15:35 Gram Stain - Preliminary Other - Other Assessment and Plan (1) Cellulitis of chest wall Current Visit: No Status: Acute Code(s): L03.313 - CELLULITIS OF CHEST WALL SNOMED Code(s): 18715581 (2) Infection of pacemaker pulse generator site Current Visit: No Status: Acute Code(s): T82.7XXA - INFECT/INFLM REACT D/T OTH CARDI/VASC DEV/IMPLNT/GRFT, INIT SNOMED Code(s): 434714908 Plan: 1patient presented hospital with the left chest wall cellulitis with a pacemaker infection status post extraction of the pacemaker and the leads we will need to cover for the gram-positive as well as gram-negative pathogen pending cultures finalization. 2we will increase the dose of daptomycin to 6 mg/kg concerning for deeper infection and add cefepime 2 g every 8 hours to cover for the gram-negative. Discharge antibiotic on the basis of clinical spots as well as culture daughter at the bedside question concern was also discussed with the cardiology on the phone. We will follow on clinical condition and cultures to further adjust medication if needed Thank you for this consultation we will follow the patient along with you Dictation was produced using [employer] dictation software. please excuse any grammatical, word or spelling errors. Time with Patient: Greater than 30
--- NOTE | 2024-06-02 14:40 | P.PN ---
Subjective Progress Note Date: 06/02/24 Principal diagnosis: Reason for follow-up is pacemaker site infection Patient is a 78-year-old female with a past medical history significant for hyperlipidemia CVA TIA fibromyalgia seizure disorder did have a recent bradycardia arrhythmia requiring pacemaker placement subsequent admission to hospital with left chest wall cellulitis no being readmitted for extraction of the pacemaker generator and lead. On today's evaluation that is 06/02/2024,the patient denies any fever or any chills, patient is breathing comfortably on room air, the patient denies any worsening chest pain shortness of breath and no significant cough, patient denies abdominal pain, no nausea vomiting or diarrhea. White count is 5.5 cultures currently pending Objective - Vital Signs Vital signs: Vital Signs Temp 97.4 F L 06/02/24 07:00 Pulse 72 06/02/24 07:00 Resp 16 06/02/24 07:00 BP 138/78 06/02/24 07:00 Pulse Ox 99 06/02/24 07:00 FiO2 Intake & Output 06/01/24 06/02/24 06/02/24 18:59 06:59 18:59 Intake Total 1360 540 236 Balance 1360 540 236 Intake: Oral 1360 540 236 Other: Voiding Method Toilet Toilet # Voids 1 3 1 # Bowel Movements 1 - Exam GENERAL DESCRIPTION: An elderly female up in bed in no distress RESPIRATORY SYSTEM: Unlabored breathing , decreased breath sounds at bases HEART: S1 S2 regular rate and rhythm , left chest wall wound is currently dressed with a pressure dressing ABDOMEN: Soft , no tenderness EXTREMITIES: No edema feet - Labs CBC & Chem 7: 06/02/24 07:07 06/01/24 00:34 Labs: Abnormal Lab Results - Last 24 Hours (Table) 06/02/24 Range/Units 07:07 RBC 3.63 L (3.80-5.40) m/uL Hgb 10.3 L (11.4-16.0) gm/dL Hct 32.9 L (34.0-46.0) % Microbiology - Last 24 Hours (Table) 05/31/24 15:35 Gram Stain - Preliminary Other - Other Tissue Culture - Preliminary Assessment and Plan (1) Cellulitis of chest wall Current Visit: No Status: Acute Code(s): L03.313 - CELLULITIS OF CHEST WALL SNOMED Code(s): 47289302 (2) Infection of pacemaker pulse generator site Current Visit: No Status: Acute Code(s): T82.7XXA - INFECT/INFLM REACT D/T OTH CARDI/VASC DEV/IMPLNT/GRFT, INIT SNOMED Code(s): 331960735 Plan: 1patient presented hospital with the left chest wall cellulitis with a pacemaker infection status post extraction of the pacemaker and the leads we will need to cover for the gram-positive as well as gram-negative pathogen pending cultures finalization. 2patient to continue with daptomycin to 6 mg/kg along with cefepime 2 g every 8 hours while waiting for the culture to finalize Dictation was produced using [employer] dictation software. please excuse any grammatical, word or spelling errors. Time with Patient: Less than 30
--- NOTE | 2024-06-03 14:29 | P.PN ---
Progress Note - Text Lu is doing well denies any chest discomfort dizziness lightheadedness. Very mild achiness in the chest/left pectoral area Last night after extraction of the leads and a thorough debridement and removal of all infected granulation tissue, initially there was no oozing or bleeding but then subsequently she had significant soakage of the lap sponge that was packed within the subfascial pocket along with oozing of blood. Therefore an external suction device was placed. While this relieved the pressure within the skin, there was a significant amount of drainage and therefore on Tuesday I applied a compressive dressing. This seems to have worked well and the local discomfort is on account of the pressure applied by the stressing Heart sounds are normal and regular Breath sounds are clear On telemetry there have been no episodes of bradycardia or pauses She did have an episode of being very weak in the bathroom with a drop in blood pressure on Tuesday She responded to IV fluids Her hemoglobin is low and therefore I gave her IV iron. Her repeat hemoglobin was actually 10.3 on Tuesday After receiving 1 L of fluids her blood pressure improved and subsequently 100 cc/h was continued through Tuesday She was seen by infectious disease and IV antibiotics were continued and cefepime was added I held aspirin but continued Plavix since she had a TIA in the last 3 to 4 months White count normal Hemoglobin 10.3 Platelet count 217,000 Creatinine 0.5 BUN 20 Granulation tissue did not show any growth within 48 hours Gram stain showed rare polymorphonuclear leukocytes No aerobic/anaerobic growth Plan continue with compression dressing Consideration for removal of the suction device tomorrow on Tuesday depending on her progress Continue IV antibiotics DVT prophylaxis with sequential compression device Exercising both upper extremities at the wrist and elbow and shoulder level. This was explained to the patient to minimize swelling and arm DVT especially since she has had lymph node removal with breast cancer treatment
--- NOTE | 2024-06-03 14:32 | P.PN ---
Progress Note - Text Patient is doing well today She hardly has any discomfort in the pectoral area. The drainage is completely stopped Lungs are clear to auscultation no rhonchi no crackles Heart sounds are normal The left arm appears less swollen today Blood pressure 128/76 mmHg pulse rate in the 80s No pauses on telemetry Completely afebrile Heart sounds are normal I removed the compression dressing today followed by removal of the suction device The area was cleaned with chlorhexidine and then a breathable dressing was applied The nurse was instructed that if this got soaked then she may apply a compression dressing as was previously done otherwise not Dr. Locke also saw her at that time and he will continue the IV antibiotics So far all cultures are negative Plan Likely home tomorrow IV antibiotics scheduled per Dr. Bautista, infectious disease If in the next 2 weeks she remains completely afebrile without any recrudescence of infection then I will proceed with implantation of a Micra AV device CBC tomorrow Continue Plavix
--- NOTE | 2024-06-03 16:57 | P.PN ---
Subjective Progress Note Date: 06/03/24 Principal diagnosis: Reason for follow-up is pacemaker site infection Patient is a 78-year-old female with a past medical history significant for hyperlipidemia CVA TIA fibromyalgia seizure disorder did have a recent bradycardia arrhythmia requiring pacemaker placement subsequent admission to hospital with left chest wall cellulitis no being readmitted for extraction of the pacemaker generator and lead. On today's evaluation that is 06/03/2024,the patient remains to be afebrile, patient is on room air not requiring supplemental oxygen and denies any shortness of breath and no pain to the left chest wall or any cough.Patient denies having any nausea or vomiting, no abdominal pain and no diarrhea has been reported. No new labs were obtained today cultures are currently pending Objective - Vital Signs Vital signs: Vital Signs Temp 97.9 F 06/03/24 07:00 Pulse 69 06/03/24 07:00 Resp 16 06/03/24 07:00 BP 154/80 06/03/24 07:00 Pulse Ox 97 06/03/24 07:00 FiO2 Intake & Output 06/02/24 06/03/24 06/03/24 18:59 06:59 18:59 Intake Total 590 480 472 Balance 590 480 472 Intake: Oral 590 480 472 Other: Voiding Method Toilet # Voids 1 1 - Exam GENERAL DESCRIPTION: An elderly female up in bed in no distress RESPIRATORY SYSTEM: Unlabored breathing , decreased breath sounds at bases HEART: S1 S2 regular rate and rhythm , left chest wall incision is intact and some bruising no redness ABDOMEN: Soft , no tenderness EXTREMITIES: No edema feet - Labs CBC & Chem 7: 06/02/24 07:07 06/01/24 00:34 Labs: Microbiology - Last 24 Hours (Table) 05/31/24 15:35 Anaerobic Culture - Preliminary Other - Other 05/31/24 15:35 Gram Stain - Preliminary Other - Other Tissue Culture - Preliminary Assessment and Plan (1) Cellulitis of chest wall Current Visit: No Status: Acute Code(s): L03.313 - CELLULITIS OF CHEST WALL SNOMED Code(s): 91902206 (2) Infection of pacemaker pulse generator site Current Visit: No Status: Acute Code(s): T82.7XXA - INFECT/INFLM REACT D/T OTH CARDI/VASC DEV/IMPLNT/GRFT, INIT SNOMED Code(s): 704859028 Plan: 1patient presented hospital with the left chest wall cellulitis with a pacemaker infection status post extraction of the pacemaker and the leads we will need to cover for the gram-positive as well as gram-negative pathogen pending cultures finalization. 2patient did have some clinical improvement cultures currently pending, patient to continue with daptomycin along with cefepime 2 g every 8 hours while waiting for the culture to finalize to determine discharge antibiotics Dictation was produced using [employer] dictation software. please excuse any grammatical, word or spelling errors. Time with Patient: Less than 30
[2024-06-04 03:04] LABS: Basophils % (A) 1 %; Eosinophils # (A) 0.2 k/uL (0-0.7); Eosinophils % (A) 4 %; HCT 29.5 % (34.0-46.0); HGB 9.2 gm/dL (11.4-16.0); Hypochromasia Moderate; Lymphocytes # (A) 1.1 k/uL (1.0-4.8); Lymphocytes % (A) 21 %; MCH 28.2 pg (25.0-35.0); MCV 90.9 fL (80.0-100.0); Mean Platelet Volume 7.7; Monocytes # (A) 0.4 k/uL (0-1.0); Monocytes % (A) 8 %; Neutrophils # (A) 3.5 k/uL (1.3-7.7); Neutrophils % (A) 65 %; Platelet Count 185 k/uL (150-450); RBC 3.25 m/uL (3.80-5.40); RDW 14.9 % (11.5-15.5); WBC 5.5 k/uL (3.8-10.6)
[2024-06-04 03:18] LABS: ALT 29 U/L (4-34); AST 31 U/L (14-36); African American GFR (CKD) >90 (>60 ml/min/1.73 sqM); Albumin 3.3 g/dL (3.5-5.0); Albumin/Globulin Ratio 1.6; Alkaline Phosphatase 82 U/L (38-126); Anion Gap 4 mmol/L; Blood Urea Nitrogen 14 mg/dL (7-17); C Reactive Protein <0.5 mg/dL (<1.0); Calcium 8.7 mg/dL (8.4-10.2); Carbon Dioxide 24 mmol/L (22-30); Chloride 110 mmol/L (98-107); Globulin 2.1 g/dL; Glucose 94 mg/dL (74-99); Non-African American GFR(CKD) >90 (>60 ml/min/1.73 sqM); Potassium 3.8 mmol/L (3.5-5.1); Sodium 138 mmol/L (137-145); Total Bilirubin 0.7 mg/dL (0.2-1.3); Total Protein 5.4 g/dL (6.3-8.2)
[2024-06-04 07:31] VITALS: RESP 16
--- NOTE | 2024-06-04 11:24 | P.DS ---
Providers Date of admission: 06/01/24 13:15 Attending physician: Jed Montoya Consults: 05/31/24 16:33 Consult Physician Routine Consulting Provider: Nakita Locke Consult Reason/Comments: ppm infection, lead extraction Do you want consulting provider notified?: Yes Primary care physician: Guillermina Wakefield, Hospital Course: This is an 78-year-old female who was admitted to the hospital secondary to pac emaker infection. She is status post pacemaker removal. She has been receiving IV antibiotics per infectious disease. The patient was deemed stable for discharge home today per Dr. Montoya. She will continue on antibiotics per Dr. Locke. Patient will be scheduled for Micra pacemaker in 2-[address] Montoya. Please see EMR for further hospital course details Discharge diagnosis Infected pacemaker, status post pacemaker explantation Nurse practitioner note has been reviewed by physician. Signing provider agrees with the documented findings, assessment, and plan of care documented by METAL BUILDING ASSEMBLER as a scribe. Plan - Discharge Summary Discharge Rx Participant: No New Discharge Prescriptions: No Action Montelukast [Singulair] 10 mg PO HS Aspirin 81 mg PO HS Acetaminophen [Tylenol Arthritis] 1 tab PO DIRECTED PRN PRN Reason: Pain Unk Multi Vitamin 1 tab PO DAILY Unk Areds Vitamin 1 tab PO BID Pramipexole [Mirapex] 2 mg PO HS Clopidogrel [Plavix] 75 mg PO DAILY Atorvastatin [Lipitor] 40 mg PO HS DAPTOmycin [Cubicin] 250 mg IVPB Q24HR #14 each Famotidine 20 mg PO BID Unk Vitamin D 1 tab PO DAILY Discharge Medication List Atorvastatin [Lipitor] 40 mg PO HS 05/19/24 [History] Clopidogrel [Plavix] 75 mg PO DAILY 05/19/24 [History] Montelukast [Singulair] 10 mg PO HS 05/19/24 [History] Pramipexole [Mirapex] 2 mg PO HS 05/19/24 [History] DAPTOmycin [Cubicin] 250 mg IVPB Q24HR #14 each 05/24/24 [Rx] Acetaminophen [Tylenol Arthritis] 1 tab PO DIRECTED PRN 05/30/24 [History] Aspirin 81 mg PO HS 05/30/24 [History] Famotidine 20 mg PO BID 05/30/24 [History] Unk Areds Vitamin 1 tab PO BID 05/30/24 [History] Unk Multi Vitamin 1 tab PO DAILY 05/30/24 [History] Unk Vitamin D 1 tab PO DAILY 05/30/24 [History] Follow up Appointment(s)/Referral(s): Jed Montoya MD [STAFF PHYSICIAN] - 06/07/24 3:30 pm (PATIENT WILL BE SEEN IN THE DEVICE CLINIC. ) Patient Instructions/Handouts: Moderate Sedation (DC), Pacemaker (DC) Activity/Diet/Wound Care/Special Instructions: KEEP INCISION DRY UNTIL SEEN AT APPOINTMENT AT CARDIOLOGY. COVER WITH SARAN WRAP AND TAPE IT. SIGNS OF INFECTIONS IE: FEVER, RASH, SWELLING, RASH, UNUSUAL DRAINAGE CONTACT DR MONTOYA. PAIN CONTROL USE ACETAMINOPHEN NEEDED. NO DRIVING TODAY IF SEDATION GIVEN. MEDS DIRECTED BY DOCTOR.
--- NOTE | 2024-06-04 11:57 | CDI ---
Documentation Clarification Form Date: 06/04/2024 11:28:31 AM From: Inez Messina RN, CCDS Phone: [phone] Admit Date: 06/01/2024 01:15:00 PM Patient Name: Lu Ray Visit Number: [id number] Discharge Date: ATTENTION: The Clinical Documentation Specialists (CDI) and [facility] Coding Staff appreciate your assistance in clarifying documentation. Please respond to the clarification below the line at the bottom and electronically sign. The CDI & [facility] Coding staff will review the response and follow-up if needed. Please note: Queries are made part of the Legal Health Record. If you have any questions, please contact the author of this message via ITS. Dr. Jed Montoya A near-total debridement is documented in the Electrophysiology Procedure Note on 05/31/24. Additional clarification regarding the procedure is requested. History/Risk Factors: presyncope, Left bundle branch block sinus pauses post dual-chamber pacemaker implantation, Stroke, Hyperlipidemia, Fibromyalgia, Seizure, Clinical Indicators: 78-year-old diagnosed with infected dual-chamber pacemaker via left pectoral area. She was brought to EP lab for inspection of pocket. A near-total debridement of the granulation tissue was performed down to the pectoralis muscle. 06/01 VS: 118/75 74 15 98.1 98% RA Labs: WBC 6.3 HGB 8.8 HCT 28.0 Treatment: Daptomycin IVPB Q 24/HRS Prevena suction dressing Compression Dressing Please clarify the type of procedure performed: [ xxx ] Excisional debridement (the removal of necrotic, devitalized tissue or slough by means of cutting away of tissue) Five elements required for accurate and compliant documentation of a debridement: Technique used (e.g., excisional, excised, cutting, brushing, jet lavage etc.) Instrument(s) used (e.g., scalpel, curette, etc.) Nature of the tissue removed (e.g., necrotic, devitalized tissues, non-viable tissue, etc.) Appearance and size of the wound (e.g., down to fresh bleeding tissue, 7cm x 10cm, etc.) Depth of the debridement* (e.g., skin, subcutaneous tissue, fascia, muscle, bone, etc.) (Template Last Revised: January 2021) Excisional technique, Using both scalpel and electrocautery Nonviable devitalized tissue removed Down to fresh bleeding tissue Skin and subcutaneous tissue down to the pectoralis muscle This is in addition to extraction of the atrial lead and extraction of the ventricular lead MTDD
[2024-06-04 14:57] VITALS: BP 103/63; PULSE 76; TEMP 98.3
--- NOTE | 2024-06-06 08:27 | P.PN ---
Subjective Progress Note Date: 06/04/24 Principal diagnosis: Reason for follow-up is pacemaker site infection Patient is a 78-year-old female with a past medical history significant for hyperlipidemia CVA TIA fibromyalgia seizure disorder did have a recent bradycardia arrhythmia requiring pacemaker placement subsequent admission to hospital with left chest wall cellulitis no being readmitted for extraction of the pacemaker generator and lead. On today's evaluation that is 06/04/2024, the patient continues to be afebrile, the patient is on room air and breathing comfortably, the Pt denies having any chest pain or cough, the patient denies having any abdominal pain no vomiting or any diarrhea, patient mention feeling better. Patient white count is 5.5 creatinine 0.44 culture has been negative so far Objective - Vital Signs Vital signs: Vital Signs Temp 97.7 F 06/04/24 07:10 Pulse 65 06/04/24 07:10 Resp 16 06/04/24 07:10 BP 145/71 06/04/24 07:10 Pulse Ox 97 06/04/24 07:10 FiO2 Intake & Output 06/03/24 06/04/24 06/04/24 18:59 06:59 18:59 Intake Total 826 Balance 826 Intake: Oral 826 Other: Voiding Method Toilet # Voids 6 2 - Exam GENERAL DESCRIPTION: An elderly female up in bed in no distress RESPIRATORY SYSTEM: Unlabored breathing , decreased breath sounds at bases HEART: S1 S2 regular rate and rhythm , left chest wall incision is intact and some bruising no redness ABDOMEN: Soft , no tenderness EXTREMITIES: No edema feet - Labs CBC & Chem 7: 06/04/24 02:25 06/04/24 02:25 Labs: Abnormal Lab Results - Last 24 Hours (Table) 06/04/24 06/04/24 Range/Units 02:25 02:25 RBC 3.25 L (3.80-5.40) m/uL Hgb 9.2 L (11.4-16.0) gm/dL Hct 29.5 L (34.0-46.0) % Chloride 110 H (98-107) mmol/L Creatinine 0.44 L (0.52-1.04) mg/dL Total Protein 5.4 L (6.3-8.2) g/dL Albumin 3.3 L (3.5-5.0) g/dL Microbiology - Last 24 Hours (Table) 05/31/24 15:35 Gram Stain - Preliminary Other - Other Tissue Culture - Preliminary Assessment and Plan (1) Cellulitis of chest wall Status: Acute Code(s): L03.313 - CELLULITIS OF CHEST WALL SNOMED Code(s): 07307845 (2) Infection of pacemaker pulse generator site Status: Acute Code(s): T82.7XXA - INFECT/INFLM REACT D/T OTH CARDI/VASC DEV/IMPLNT/GRFT, INIT SNOMED Code(s): 861662918 Plan: 1patient presented hospital with the left chest wall cellulitis with a pacemaker infection status post extraction of the pacemaker and the leads we will need to cover for the gram-positive as well as gram-negative pathogen pending cultures finalization. 2patient did have some clinical improvement cultures has been negative so far however the patient was on IV daptomycin prior to the culture taken keeping in mind her complicated condition we will consider continuing daptomycin for 10 days on discharge and close outpatient follow-up prescription provided to the telephonic case manager Dictation was produced using [employer] dictation software. please excuse any grammatical, word or spelling errors. Time with Patient: Less than 30
== END 2024-06-04 15:43 | disposition home or self-care (01) | DRG 264 ==
LOC: CATHEP 11:49 → 6NMEDSUR 15:58 → CATHEP 06-01 13:15 → 6NMEDSUR 06-01 13:15
PROVIDERS: ADMIT Internal Medicine Clinical Cardiac Electrophysiology; ATTEND Internal Medicine Clinical Cardiac Electrophysiology
PROC: 0JB60ZZ Excision of Chest Subcutaneous Tissue and Fascia, Open Approach (ICD-10-PCS; principal; 2024-06-01)
DX: T82.7XXA Infection and inflammatory reaction due to other cardiac and vascular devices, implants and grafts, initial encounter (principal); L03.313 Cellulitis of chest wall; D64.9 Anemia, unspecified; E78.5 Hyperlipidemia, unspecified; G40.909 Epilepsy, unspecified, not intractable, without status epilepticus; M79.7 Fibromyalgia; Z96.641 Presence of right artificial hip joint; Z96.653 Presence of artificial knee joint, bilateral; Y83.1 Surgical operation with implant of artificial internal device as the cause of abnormal reaction of the patient, or of later complication, without mention of misadventure at the time of the procedure; Z86.73 Personal history of transient ischemic attack (TIA), and cerebral infarction without residual deficits; Z79.02 Long term (current) use of antithrombotics/antiplatelets; Z79.82 Long term (current) use of aspirin; Z79.899 Other long term (current) drug therapy; Z85.3 Personal history of malignant neoplasm of breast; Z90.13 Acquired absence of bilateral breasts and nipples; Z95.0 Presence of cardiac pacemaker; Z98.1 Arthrodesis status; Z88.8 Allergy status to other drugs, medicaments and biological substances; Z88.5 Allergy status to narcotic agent; Z88.1 Allergy status to other antibiotic agents
CPT/HCPCS: 33233; 80053; 82565; 84520; 85025; 86140; 86850; 86900; 86901; 87070; 87075; 87205; 93308

== ENCOUNTER 2024-06-12 15:50 | Day surgery (SDC) | payer MEDICARE, OTHER | END 2024-06-12 17:43 | LOC: CATHCVL 15:50 | PROVIDERS: ATTEND Internal Medicine Clinical Cardiac Electrophysiology | DX: L76.32 Postprocedural hematoma of skin and subcutaneous tissue following other procedure (principal); I25.10 Atherosclerotic heart disease of native coronary artery without angina pectoris; I44.7 Left bundle-branch block, unspecified; I49.5 Sick sinus syndrome; I73.9 Peripheral vascular disease, unspecified; I10 Essential (primary) hypertension; E78.5 Hyperlipidemia, unspecified; G89.4 Chronic pain syndrome; Z82.49 Family history of ischemic heart disease and other diseases of the circulatory system; Z88.3 Allergy status to other anti-infective agents; Z88.1 Allergy status to other antibiotic agents; Z95.0 Presence of cardiac pacemaker; Z88.5 Allergy status to narcotic agent; Z88.6 Allergy status to analgesic agent; Z88.8 Allergy status to other drugs, medicaments and biological substances; Z91.040 Latex allergy status; Z91.09 Other allergy status, other than to drugs and biological substances; Z79.1 Long term (current) use of non-steroidal anti-inflammatories (NSAID); Z79.02 Long term (current) use of antithrombotics/antiplatelets; Z79.899 Other long term (current) drug therapy; Z79.82 Long term (current) use of aspirin | CPT/HCPCS: 10140 ==

== ENCOUNTER 2024-06-26 15:00 | Inpatient (IN) | payer MEDICARE, OTHER ==
[2024-06-26] MEDS ORDERED: MIDAZOLAM 2 MG/2 ML VIAL ONE (15:21)
[2024-06-26] MEDS ORDERED: PHENYLEPHRINE 10 MG/ML VIAL ONE (15:21)
[2024-06-26] MEDS ORDERED: SODIUM BICARB 8.4% 50 ML SYR (1 MEQ/ML) ONE ×2 (15:21→22:54)
[2024-06-26] MEDS ORDERED: SUCCINYLCHOLINE CHLORIDE 200 MG/10 ML VIAL IV ONE (15:21)
[2024-06-26] MEDS ORDERED: ROCURONIUM 10 MG/ML (5 ML VIAL) IV ONE (15:21)
[2024-06-26] MEDS ORDERED: HEPARIN SODIUM,PORCINE 5,000 UNIT/ML 1 ML VIAL ONE (15:21)
[2024-06-26] MEDS ORDERED: fentaNYL (PF) 50 MCG/ML 2 ML AMP ONE (15:21)
[2024-06-26] MEDS ORDERED: CALCIUM CHLORIDE 100 MG/ML 10 ML SYRINGE ONE (15:21)
[2024-06-26] MEDS ORDERED: KETAMINE HCL IN 0.9 % NACL 50 MG/5 ML SYRINGE ONE (15:21)
[2024-06-26] MEDS ORDERED: diphenhydrAMINE 50 MG/ML 1 ML VIAL ONE (15:21)
[2024-06-26] MEDS ORDERED: EPINEPHrine 10 ML SYRINGE (0.1 MG/ML) ONE (15:21)
[2024-06-26] MEDS ORDERED: PROPOFOL 10 MG/ML 20 ML VIAL IV ONE (15:21)
[2024-06-26] MEDS ORDERED: LIDOCAINE 1% INJ 10MG/ML (20 ML MDV) ONE ×4 (15:39→16:39)
[2024-06-26] MEDS ORDERED: ROPIVACAINE 5MG/ML 20ML VIAL ONE ×2 (16:15)
[2024-06-26] MEDS ORDERED: PROTAMINE SULFATE 10 MG/ML 5 ML VIAL ONE ×2 (16:54)
[2024-06-27] MEDS ORDERED: propofoL 100 ML IV ONE ×2 (00:46→10:37)
[2024-06-27] MEDS ORDERED: ACETAMINOPHEN TAB 325 MG TAB ONE ×2 (02:45→18:18)
[2024-06-27] MEDS ORDERED: PANTOPRAZOLE 40 MG/10 ML VIAL ONE (09:17)
[2024-06-27] MEDS ORDERED: ATORVASTATIN 40 MG TAB ONE (09:17)
[2024-06-27] MEDS ORDERED: POTASSIUM BICARBONATE/CIT AC 20 MEQ TABLET.EFF ONE (09:17)
[2024-06-27] MEDS ORDERED: CHLORHEXIDINE GLUCONATE 15 ML CUP MUCOUS MEM ONE (09:18)
[2024-06-27] MEDS ORDERED: MAGNESIUM SULFATE-D5W PMX 100 ML IVPB ONE ×2 (09:18→10:30)
[2024-06-27] MEDS ORDERED: NITROGLYCERIN-D5W PMX 250 ML IV ONE (15:29)
[2024-06-27] MEDS ORDERED: HYDROcodone/APAP 5-325MG 1 EACH TAB ONE (21:50)
[2024-06-28] MEDS ORDERED: HYDROcodone/APAP 5-325MG 1 EACH TAB ONE ×4 (03:10→22:58)
[2024-06-28] MEDS ORDERED: IPRATROPIUM-ALBUTEROL 3 ML NEB ONE ×4 (05:38→19:51)
[2024-06-28] MEDS ORDERED: POTASSIUM BICARBONATE/CIT AC 20 MEQ TABLET.EFF ONE ×2 (07:28→14:39)
[2024-06-28] MEDS ORDERED: MAGNESIUM SULFATE-D5W PMX 100 ML IVPB ONE (07:29)
[2024-06-28] MEDS ORDERED: PANTOPRAZOLE 40 MG/10 ML VIAL ONE (08:27)
[2024-06-28] MEDS ORDERED: ATORVASTATIN 40 MG TAB ONE (08:45)
[2024-06-28] MEDS ORDERED: FAMOTIDINE 20 MG/2 ML VIAL ONE (08:45)
[2024-06-28] MEDS ORDERED: carvediloL 3.125 MG TAB ONE ×2 (08:45→22:20)
[2024-06-28] MEDS ORDERED: FUROSEMIDE 10 MG/ML 4 ML VIAL ONE (11:06)
[2024-06-28] MEDS ORDERED: IPRATROPIUM 0.5 MG/2.5 ML NEBU INHALATION ONE (19:50)
[2024-06-28] MEDS ORDERED: BUDESONIDE 1 MG/2 ML NEBU INHALATION ONE (19:51)
[2024-06-28] MEDS ORDERED: FORMOTEROL FUMARATE 20 MCG/2 ML NEBU INHALATION ONE (19:51)
[2024-06-28] MEDS ORDERED: carvediloL 6.25 MG TAB ONE (22:40)
[2024-06-28] MEDS ORDERED: ALPRAZolam 0.25 MG TAB ONE (22:40)
[2024-06-29] MEDS ORDERED: ACETAMINOPHEN TAB 325 MG TAB ONE (01:57)
[2024-06-29] MEDS ORDERED: HYDROcodone/APAP 5-325MG 1 EACH TAB ONE ×4 (06:01→20:29)
[2024-06-29] MEDS ORDERED: ONDANSETRON 4 MG/2 ML VIAL ONE (07:42)
[2024-06-29] MEDS ORDERED: IPRATROPIUM-ALBUTEROL 3 ML NEB ONE (07:59)
[2024-06-29] MEDS ORDERED: BISMUTH SUBSALICYLATE 4,192 MG/240 ML BOTTLE PO PRN (09:04)
[2024-06-29] MEDS ORDERED: Magnesium Replacement Protocol 1 EACH MISC MISCELLANE PRN (09:06)
[2024-06-29] MEDS ORDERED: Potassium Replacement Protocol 1 EACH MISC MISCELLANE PRN (09:06)
[2024-06-29] MEDS ORDERED: IPRATROPIUM-ALBUTEROL 3 ML NEB INHALATION PRN (09:07)
[2024-06-29] MEDS ORDERED: ATORVASTATIN 40 MG TAB ONE (09:10)
[2024-06-29] MEDS ORDERED: SPIRONOLACTONE 25 MG TAB ONE (09:10)
[2024-06-29] MEDS ORDERED: FAMOTIDINE 20 MG/2 ML VIAL ONE (09:11)
[2024-06-29] MEDS ORDERED: ASPIRIN 81 MG ONE (09:11)
[2024-06-29] MEDS ORDERED: carvediloL 6.25 MG TAB ONE ×2 (09:11→20:30)
[2024-06-29] MEDS ORDERED: PANTOPRAZOLE 40 MG/10 ML VIAL ONE (09:12)
[2024-06-29] MEDS ORDERED: MAGNESIUM SULFATE-D5W PMX 100 ML IVPB ONE (09:13)
[2024-06-29] MEDS ORDERED: POTASSIUM BICARBONATE/CIT AC 20 MEQ TABLET.EFF ONE (09:13)
[2024-06-29] MEDS ORDERED: NOREPINEPHRINE 4 MG in SODIUM CHLORIDE 0.9% 250 ML IV SCH (09:15)
[2024-06-29] MEDS ORDERED: FUROSEMIDE 10 MG/ML 4 ML VIAL ONE (12:16)
[2024-06-29] MEDS ORDERED: KETOROLAC 15 MG/ML 1 ML VIAL ONE (15:22)
[2024-06-29] MEDS ORDERED: LIDOCAINE 4% PATCH TOPICAL ONE (15:23)
[2024-06-29] MEDS ORDERED: ALPRAZolam 0.25 MG TAB ONE (20:29)
[2024-06-30] MEDS ORDERED: HYDROcodone/APAP 5-325MG 1 EACH TAB ONE ×5 (02:31→21:40)
[2024-06-30] MEDS ORDERED: IPRATROPIUM-ALBUTEROL 3 ML NEB ONE (08:12)
[2024-06-30] MEDS ORDERED: SPIRONOLACTONE 25 MG TAB ONE (10:26)
[2024-06-30] MEDS ORDERED: ASPIRIN 81 MG ONE (10:27)
[2024-06-30] MEDS ORDERED: CLOPIDOGREL 75 MG TAB ONE (10:27)
[2024-06-30] MEDS ORDERED: ATORVASTATIN 40 MG TAB ONE (10:27)
[2024-06-30] MEDS ORDERED: carvediloL 6.25 MG TAB ONE ×2 (10:27→21:41)
[2024-06-30] MEDS ORDERED: FAMOTIDINE 20 MG TAB ONE (11:56)
[2024-06-30] MEDS ORDERED: PANTOPRAZOLE 40 MG TABLET PO ONE (11:56)
[2024-06-30] MEDS ORDERED: ALPRAZolam 0.25 MG TAB ONE (21:40)
[2024-07-01] MEDS ORDERED: HYDROcodone/APAP 5-325MG 1 EACH TAB ONE (01:26)
[2024-07-01] MEDS: HYDROcodone/APAP 5-325MG 1 EACH TAB PO PRN (05:12)
[2024-07-01] MEDS: ALPRAZolam 0.25 MG TAB PO SCH (05:19)
[2024-07-01] MEDS: PANTOPRAZOLE 40 MG/10 ML VIAL IVP SCH (05:20)
[2024-07-01] MEDS: SODIUM CHLORIDE 0.9% 1,000 ML IV SCH (05:20)
[2024-07-01] MEDS: ASPIRIN 81 MG PO SCH (05:20)
[2024-07-01] MEDS: FAMOTIDINE 20 MG/2 ML VIAL IV SCH (05:20)
[2024-07-01] MEDS: SPIRONOLACTONE 25 MG TAB PO SCH ×2 (05:20→08:53)
[2024-07-01] MEDS: ATORVASTATIN 40 MG TAB PO SCH (05:20)
[2024-07-01] MEDS: PRAMIPEXOLE 1 MG TAB PO SCH (05:21)
[2024-07-01] MEDS: LIDOCAINE 4% PATCH TOPICAL ONE (05:21)
[2024-07-01] MEDS: BENZONATATE 100 MG CAP PO SCH (05:21)
[2024-07-01] MEDS: carvediloL 6.25 MG TAB PO SCH (05:21)
[2024-07-01] MEDS: IPRATROPIUM-ALBUTEROL 3 ML NEB INHALATION SCH (05:21)
[2024-07-01] MEDS: CLOPIDOGREL 75 MG TAB PO SCH (05:21)
[2024-07-01] MEDS ORDERED: LORATADINE 10 MG TAB PO PRN ×2 (05:56→06:51)
[2024-07-01] MEDS: ACETAMINOPHEN TAB 325 MG TAB PO PRN (06:39)
[2024-07-01] MEDS ORDERED: guaiFENesin-DM 100-10MG/5ML 10 ML CUP PO PRN (07:02)
[2024-07-01 07:07] LABS: African American GFR (CKD) >90 (>60 ml/min/1.73 sqM); Anion Gap 3 mmol/L; Blood Urea Nitrogen 8 mg/dL (7-17); Calcium 8.2 mg/dL (8.4-10.2); Carbon Dioxide 30 mmol/L (22-30); Chloride 106 mmol/L (98-107); Glucose 99 mg/dL (74-99); Non-African American GFR(CKD) >90 (>60 ml/min/1.73 sqM); Potassium 3.4 mmol/L (3.5-5.1); Sodium 139 mmol/L (137-145)
--- NOTE | 2024-07-01 07:40 | P.PN ---
Progress Note - Text Patient is resting comfortably in bed Intermittently she does get chest discomfort which is musculoskeletal post CPR Her rhythm is paced A sensed -V paced via the Micra AV device No respiratory distress no orthopnea He has no recent memory for events but her remote memory is reasonably intact Labs were sent this morning sodium 139 potassium 3.4 on spironolactone 25 mg p.o. daily BUN 8 creatinine 0.5 Calcium low at 8.2 Blood pressure 156/69 afebrile pulse rate in the 70s Impression Sick sinus syndrome with intermittent sinus pauses/intermittent AV block/left bundle branch block Previously a permanent pacemaker had been [facility] which was [facility] I extracted this pacemaker in toto and did a debridement of her left pectoral pocket which is healed well She has completed IV antibiotics She was brought in for implantation of a Micra AV device, leadless pacemaker Pericardial tamponade with 300 cc of blood secondary to coronary sinus puncture No recurrence after successful pericardiocentesis and drainage Patient has been extubated and is now out of the ICU LV function is reduced apical hypokinesis, tolerating carvedilol Entresto spironolactone She has a past history of CVA and is on aspirin and Plavix, after carotid endarterectomy at [facility] earlier this year Aspirin Plavix have been resumed She is also on Lipitor 40 mg p.o. daily Plan Yesterday the Lombardi catheter was removed Patient has been ambulating around in the room in the hallway Today out of bed to chair Incentive spirometry encouraged and discussed with nurse and her sitter in the room Continue current cardiac medications Antibiotics were discontinued 24 hours after the procedure Her groin has healed well The pericardiocentesis site is healed well I would remove the PICC line by tomorrow Discharge planning to extended-care facility at [facility] likely tomorrow
--- NOTE | 2024-07-01 07:41 | P.EPCON ---
Electrophysiology Consult - EP Consult Electrophysiology Consult: 2 electrophysiology procedure notes have been dictated However, I was told that the account number was inaccurate and therefore I will ask medical records to find my 2 dictations from the day of the procedure and scanner to the chart
[2024-07-01] MEDS: BENZOCAINE/MENTHOL LOZENG 1 EACH LOZENGE MUCOUS MEM PRN (10:31)
[2024-07-01] MEDS: LACTULOSE 20 GM/30 ML CUP PO ONE (10:31)
[2024-07-01] MEDS: SACUBITRIL/VALSARTAN 24 MG-26 MG TABLET PO SCH (10:32)
[2024-07-01] MEDS: LIDOCAINE 4% PATCH TOPICAL SCH (10:32)
--- NOTE | 2024-07-01 12:12 | P.PN ---
Subjective Progress Note Date: 07/01/24 Hospital course: Patient is a very pleasant 78-year-old female with a past medical history of sick sinus syndrome with intermittent pauses/intermittent AV block/left bundle dante block, fibromyalgia, hyperlipidemia, GERD, previous CVA/TIA without residual deficits, and breast cancer status post bilateral mastectomy. She is currently admitted under cardiology team status post placement of Micra AV leadless pacemaker device. During hospitalization patient had a cardiac arrest with successful ROSC requiring intubation and ICU stay. She had a pericardial tamponade requiring a pericardiocentesis with drainage of approximately 300 cc of blood. She was successfully extubated on 01/25/34. Since awakening and status post extubation, patient has had mild confusion with reports of short- term memory loss needing redirection and reassurance and reported confusion to time and situation. We were consulted on day 4 of patient's hospitalization after her transfer to cardiac stepdown unit for continued medical management while awaiting mcc placement for rehab. Physical exam: Patient was seen and fully evaluated at bedside in room 378. She is postoperative day 5 and was sitting upright in chair visiting with family members at bedside. Patient currently reports only mild pain/soreness to sternum/left rib region worse with movement, site of bruising from CPR received during hospitalization. Patient denies having any shortness of breath or exertional dyspnea. She denies having any palpitations, nausea, vomiting, cough or congestion, or any other complaints at this time. Patient is alert to person, place, and mildly confused to time and situation with no memory of recent events throughout hospitalization. She is preparing to ambulate in [place] with family at this time, patient has been ambulating in room with no reported difficulties. Vital signs reviewed and stable. General: Nontoxic, no distress and appears stated age. Derm: Skin warm and dry, normal coloration for ethnicity. Moderate bruising throughout midsternal and left anterior chest in healing stages Head: Atraumatic, normocephalic and symmetric. Eyes: EOM's intact, no lid lag, and anicteric sclera Mouth: no lip lesions, mucus membranes moist Cardiovascular: regular rate and rhythm with normal S1S2, no murmur, positive posterior tibial pulses bilaterally, and cap refill < 2 seconds. Lungs: Respirations even, regular, and unlabored on room air. Lungs CTA bilaterally, no rhonchi, no rales, no wheezing, and no accessory muscle usage. Abdominal: soft, nontender to palpation, no guarding, no appreciable organomegaly Ext: ROM intact. No gross muscle atrophy, no edema, no contractures Neuro: Speech clear, face symmetrical and CN II-XII grossly intact with no noted focal neuro deficits Psych: Patient alert to person and place, confused to time and situation.. Appropriate and pleasant affect. Assessment and Plan of Care: Acute Metabolic encephalopathy Sick sinus syndrome status post Micra AV leadless pacemaker device placement. Cardiac tamponade status post pericardiocentesis Obstructive/cardiogenic shock, resolved Cardiac arrest with successful ROSC Recent history of infection surrounding cardiac pacemaker status post removal, debridement, and completion of IV antibiotics Hyperlipidemia GERD History of CVA/TIA without deficits Breast cancer status post bilateral mastectomy Fibromyalgia Patient admitted under cardiology team, reviewed documentation in chart. Pulmonology following, discussed case in depth with professor of violin and pulmonary SHIP P[employer]. Continue symptomatic care and pain management Encourage ambulation Encourage use of incentive spirometry 10-15 times daily while awake Continue cardiac medication regimen with aspirin 81 mg daily, atorvastatin 40 mg daily, carvedilol 6.25 mg twice daily, Plavix 75 mg daily, Entresto 24-26 mg tablets twice daily, and Aldactone 50 mg daily. Order placed for lidocaine patch per patient and family request for sternal/rib pain from CPR. Order placed for lactulose 30 g x 1 dose as patient, family, and RN report patient has not had a bowel movement since admission. Patient started on MiraLAX 17 g daily beginning tomorrow for bowel regimen. Order placed for K-Dur 40 mEq p.o. x 1 dose for potassium of 3.4 this morning. Data and imaging reviewed: Vital signs reviewed. Blood pressure 161/79, heart rate 72, respiratory rate 20, temp 97.9 F, and SpO2 of 99% on 2 L. Morning labs reviewed. BMP showing potassium of 3.4 otherwise normal findings. Blood glucose was 99. CODE STATUS: Full Code DVT prophylaxis: LEONILA albright and CRYSTALs Discussed with: Patient, RN, and patient's family. In addition discussed in depth with professor of violin and pulmonary [employer]IP P[employer]. Anticipated discharge date: Pending clinical course, anticipate discharge in the next [address]: intermediate facility Patient was seen independently by Nurse Pracitioner. This document was prepared using Med[employer] dictation software. Please allow for errors in purse maker, while rare they do occur. .Pranav Wilson, SHIP P[employer] rendered care for this patient independently, reviewed the findings and plan as documented in the note above. I did not physically speak with or examine the patient on this date. Objective - Vital Signs Vital signs: Vital Signs Temp 97.5 F L 07/01/24 04:00 Pulse 77 07/01/24 04:00 Resp 16 07/01/24 04:00 BP 156/69 07/01/24 04:00 Pulse Ox 97 07/01/24 04:00 FiO2 Intake & Output 06/30/24 07/01/24 07/01/24 18:59 06:59 18:59 Weight 66.9 kg - Labs CBC & Chem 7: 07/02/24 07:32 07/02/24 07:32 Labs: Abnormal Lab Results - Last 24 Hours (Table) 07/01/24 Range/Units 06:20 Potassium 3.4 L (3.5-5.1) mmol/L Creatinine 0.49 L (0.52-1.04) mg/dL Calcium 8.2 L (8.4-10.2) mg/dL
--- NOTE | 2024-07-01 12:41 | P.PN ---
Subjective Progress Note Date: 07/01/24 The patient is seen today July 01, 2024 in follow-up on the regular medical floor. She is currently awake and alert in no acute distress. Sitting up in a chair at the bedside. Denies any shortness of breath, cough or congestion. She is maintaining O2 saturations in the mid 90s on room air. She has been afebrile. Hemodynamically stable. Sodium 139. Potassium 3.4. Bicarb 30. BUN 8. Creatinine 0.49. Glucose 99. She is continued on bronchodilators. Completed antibiotics. Objective - Vital Signs Vital signs: Vital Signs Temp 97.9 F 07/01/24 11:44 Pulse 69 07/01/24 11:44 Resp 20 07/01/24 11:44 BP 138/81 07/01/24 11:44 Pulse Ox 94 L 07/01/24 11:44 FiO2 Intake & Output 06/30/24 07/01/24 07/01/24 18:59 06:59 18:59 Intake Total 360 Balance 360 Weight 66.9 kg Intake: Oral 360 Other: Voiding Method Toilet # Voids 2 - Exam GENERAL EXAM: Alert, active, pleasant 78-year-old female, on room air, comfortable in no apparent distress. HEAD: Normocephalic. EYES: Normal reaction of pupils, equal size. NOSE: Clear with pink turbinates. THROAT: No erythema or exudates. NECK: No masses, no JVD. CHEST: No chest wall deformity. Pacemaker surgical site clean and dry LUNGS: Equal air entry with no crackles, wheeze, rhonchi or dullness. CVS: S1 and S2 normal with no audible murmur, regular rhythm. ABDOMEN: No hepatosplenomegaly, normal bowel sounds, no guarding or rigidity. SPINE: No scoliosis or deformity SKIN: No rashes CENTRAL NERVOUS SYSTEM: No focal deficits, tone is normal in all 4 extremities. EXTREMITIES: There is no peripheral edema. No clubbing, no cyanosis. Peripheral pulses are intact. - Labs CBC & Chem 7: 07/01/24 06:20 Labs: Abnormal Lab Results - Last 24 Hours (Table) 07/01/24 Range/Units 06:20 Potassium 3.4 L (3.5-5.1) mmol/L Creatinine 0.49 L (0.52-1.04) mg/dL Calcium 8.2 L (8.4-10.2) mg/dL Assessment and Plan Assessment: Assessment: Sick sinus syndrome, status post pacemaker insertion with perforated coronary sinus and cardiac arrest with subsequent cardiac tamponade requiring pericardiocentesis. Postoperative day #5 Acute hypoxemic respiratory failure secondary to above requiring intubation and subsequent extubation. Currently recovered and on room air Cardiogenic shock secondary to above, recovered Metabolic encephalopathy secondary to above History of sick sinus syndrome with previous pacemaker insertion with subsequent infection requiring device removal, debridement, completed antibiotics Hyperlipidemia History of breast cancer status post bilateral mastectomy Fibromyalgia History of CVA/TIA Gastroesophageal reflux disease Plan: The patient was seen and evaluated Labs and medications reviewed Currently stable and on room air Plan is for subacute rehab at discharge We will continue to follow I have personally seen and examined the patient, performed the documentation and the assessment and plan as written. Number of minutes spent on the visit: 10.
[2024-07-01] MEDS: MAGNESIUM SULFATE-D5W PMX 100 ML IVPB ONE (14:59)
[2024-07-01] MEDS: POTASSIUM BICARBONATE/CIT AC 20 MEQ TABLET.EFF ONE (14:59)
[2024-07-01] MEDS: CHLORHEXIDINE GLUCONATE 15 ML CUP MUCOUS MEM ONE (14:59)
[2024-07-01] MEDS: ATORVASTATIN 40 MG TAB ONE (14:59)
[2024-07-01] MEDS: PANTOPRAZOLE 40 MG/10 ML VIAL ONE (14:59)
[2024-07-01] MEDS: POTASSIUM CHLORIDE ER 20 MEQ TAB.ER PO STA (17:00)
--- NOTE | 2024-07-02 07:43 | XR ---
EXAMINATION TYPE: XR chest 1V portable DATE OF EXAM: 07/02/2024 Comparison: CT 05/18/2024 Clinical History: 78-year-old female CHF Findings: Loop recorder device projects at the left side of the heart. Retrocardiac opacity. Heart is borderli ne in size. Interstitial densities, [id number] right and small left pleural effusions with bib asilar densities. Right PICC tip at the lower SVC level. Reverse right shoulder are dysplastic. Impression: Correlate for CHF with pulmonary vascular congestion. Small to moderate right and small left pleural effusions with adjacent atelectasis and/or consolidation.
[2024-07-02 08:11] VITALS: TEMP 97.7
[2024-07-02 08:13] LABS: HCT 32.3 % (34.0-46.0); HGB 10.3 gm/dL (11.4-16.0); Hypochromasia Moderate; MCH 28.6 pg (25.0-35.0); MCHC 31.7 g/dL (31.0-37.0); MCV 90.3 fL (80.0-100.0); Mean Platelet Volume 7.2; Platelet Count 173 k/uL (150-450); RBC 3.58 m/uL (3.80-5.40); RDW 14.9 % (11.5-15.5); WBC 5.5 k/uL (3.8-10.6)
[2024-07-02 08:50] LABS: ALT 40 U/L (4-34); AST 32 U/L (14-36); African American GFR (CKD) >90 (>60 ml/min/1.73 sqM); Albumin 2.9 g/dL (3.5-5.0); Alkaline Phosphatase 74 U/L (38-126); Anion Gap 3 mmol/L; Blood Urea Nitrogen 8 mg/dL (7-17); Calcium 8.3 mg/dL (8.4-10.2); Carbon Dioxide 29 mmol/L (22-30); Chloride 106 mmol/L (98-107); Glucose 100 mg/dL (74-99); Magnesium 1.8 mg/dL (1.6-2.3); Non-African American GFR(CKD) 89 (>60 ml/min/1.73 sqM); Potassium 3.5 mmol/L (3.5-5.1); Sodium 138 mmol/L (137-145); Total Bilirubin 1.2 mg/dL (0.2-1.3); Total Protein 5.2 g/dL (6.3-8.2)
[2024-07-02] MEDS: IPRATROPIUM-ALBUTEROL 3 ML NEB INHALATION SCH (10:01)
[2024-07-02] MEDS: POTASSIUM CHLORIDE ER 20 MEQ TAB.ER PO ONE (12:32)
[2024-07-02] MEDS: LACTULOSE 20 GM/30 ML CUP ONE (12:32)
--- NOTE | 2024-07-02 13:33 | P.PN ---
Subjective Progress Note Date: 07/02/24 Principal diagnosis: Syncope. The patient is seen today July 01, 2024 in follow-up on the regular medical floor. She is currently awake and alert in no acute distress. Sitting up in a chair at the bedside. Denies any shortness of breath, cough or congestion. She is maintaining O2 saturations in the mid 90s on room air. She has been afebrile. Hemodynamically stable. Sodium 139. Potassium 3.4. Bicarb 30. BUN 8. Creatinine 0.49. Glucose 99. She is continued on bronchodilators. Completed antibiotics. Progress note dated July 02, 2024. 78-year-old female seen today in room 378. The patient is awake and alert, in no acute distress. The patient is currently on room air. Updrafts can be discontinued. The patient is not receiving any fluids. Current laboratory data includes a white count of 5.5, hemoglobin 10.3, hematocrit 33.3, and platelet count 273,000. Sodium 138, potassium 3.5, chlorides 106, CO2 29, BUN 8, creatinine 0.54. Glucose is 100. Calcium 8.3. ALT is 40. Albumin is 2.9. Today's chest x-ray is consistent with mild fluid overload. Objective - Vital Signs Vital signs: Vital Signs Temp 97.7 F 07/02/24 08:00 Pulse 80 07/02/24 10:12 Resp 16 07/02/24 10:12 BP 138/70 07/02/24 08:00 Pulse Ox 98 07/02/24 10:04 FiO2 Intake & Output 07/01/24 07/02/24 07/02/24 18:59 06:59 18:59 Intake Total 488 118 118 Balance 488 118 118 Weight 70.4 kg Intake: IV 10 Invasive Line 1 10 Oral 478 118 118 Other: Voiding Method Toilet Toilet # Voids 4 1 2 - Exam No acute distress, oriented 3. The patient is currently on room air. No respiratory distress. HEENT examination is grossly unremarkable. Mucous membranes are moist. No oral lesions. Neck supple. Full range of motion. No adenopathy thyromegaly or neck vein distention. Cardiovascular examination reveals regular rhythm rate. S1-S2 normal. No S3 or S4. No discernible murmur noted. Heart sounds are distant. Heart rate 80 bpm. Lungs reveal mostly clear breath sounds. Minimal basilar crackles. No wheezes or rhonchi. Room air saturation is 98%. Abdomen soft bowel sounds are heard. No masses or tenderness. Extremities are intact. No cyanosis clubbing or edema. Skin is without rash or lesion. Neurologic examination is brief but nonfocal. - Labs CBC & Chem 7: 07/02/24 07:32 07/02/24 07:32 Labs: Abnormal Lab Results - Last 24 Hours (Table) 07/02/24 07/02/24 Range/Units 07:32 07:32 RBC 3.58 L (3.80-5.40) m/uL Hgb 10.3 L (11.4-16.0) gm/dL Hct 32.3 L (34.0-46.0) % Glucose 100 H (74-99) mg/dL Calcium 8.3 L (8.4-10.2) mg/dL ALT 40 H (4-34) U/L Total Protein 5.2 L (6.3-8.2) g/dL Albumin 2.9 L (3.5-5.0) g/dL Assessment and Plan Assessment: Sick sinus syndrome, status post pacemaker insertion with perforated coronary sinus and cardiac arrest with subsequent cardiac tamponade requiring pericardiocentesis. Postoperative day # 6. Acute hypoxemic respiratory failure secondary to above requiring intubation and subsequent extubation. Cardiogenic shock secondary to above, recovered. Metabolic encephalopathy secondary to above. History of sick sinus syndrome with previous pacemaker insertion with subsequent infection requiring device removal, and debridement. Hyperlipidemia. History of breast cancer, S/P bilateral mastectomy. Fibromyalgia. History of CVA/TIA. Gastroesophageal reflux disease. Plan: Plan dated July 02, 2024. The patient is seen today in room 378. The patient is apparently quite stable. She continues on room air. The patient is being evaluated for possible discharge, to subacute rehab. Labs, x-rays, and medications are reviewed. We will continue to follow. Prognosis is guarded. No additional recommendations at this time. Time with Patient: Less than 30
[2024-07-02] MEDS: LIDOCAINE 4% PATCH TOPICAL SCH (13:37)
[2024-07-02] MEDS: PANTOPRAZOLE 40 MG TABLET PO ONE (13:52)
[2024-07-02] MEDS: FAMOTIDINE 20 MG TAB ONE (13:52)
[2024-07-02 13:57] VITALS: BP 148/60; PULSE 69; RESP 18
--- NOTE | 2024-07-02 14:24 | P.PN ---
Progress Note - Text Lu underwent implantation of a Micra AV leadless pacemaker She had a puncture of the coronary sinus and a pericardial effusion with tamponade 300 cc of blood was removed by urgent pericardiocentesis She underwent CPR for several minutes While she has recovered well physically and is ambulating around in the room and in the hallways she still has memory loss from events that started in December of this year This likely represents brain injury secondary to resuscitative efforts and hypotension She would benefit from inpatient or outpatient brain injury rehabilitation She will continue aspirin and Plavix She will continue atorvastatin She will continue Entresto carvedilol spironolactone Follow-up with Dr. Smith in about 1 to 2 weeks at [place]
--- NOTE | 2024-07-02 14:37 | P.PN ---
Subjective Progress Note Date: 07/02/24 Hospital course: Patient is a very pleasant 78-year-old female with a past medical history of sick sinus syndrome with intermittent pauses/intermittent AV block/left bundle dante block, fibromyalgia, hyperlipidemia, GERD, previous CVA/TIA without residual deficits, and breast cancer status post bilateral mastectomy. She is currently admitted under cardiology team status post placement of Micra AV leadless pacemaker device. During hospitalization patient had a cardiac arrest with successful ROSC requiring intubation and ICU stay. She had a pericardial tamponade requiring a pericardiocentesis with drainage of approximately 300 cc of blood. She was successfully extubated on 01/25/34. Since awakening and status post extubation, patient has had mild confusion with reports of short- term memory loss needing redirection and reassurance and reported confusion to time and situation. We were consulted on day 4 of patient's hospitalization after her transfer to cardiac stepdown unit for continued medical management while awaiting [facility] placement for rehab. Physical exam: Patient was seen and fully evaluated at bedside this morning. She was sitting up in the chair and reports moderate pain to lower back. Patient has been ambulating without difficulties with use of walker and supervision. Family reports patient did not qualify for inpatient rehab and they plan on taking her home with home care. They report they are awaiting to discuss further with physics teacher. Vital signs reviewed and stable. General: Nontoxic, no distress and appears stated age. Derm: Skin warm and dry, normal coloration for ethnicity. Moderate bruising throughout midsternal and left anterior chest in healing stages Head: Atraumatic, normocephalic and symmetric. Eyes: EOM's intact, no lid lag, and anicteric sclera Mouth: no lip lesions, mucus membranes moist Cardiovascular: regular rate and rhythm with normal S1S2, no murmur, positive posterior tibial pulses bilaterally, and cap refill < 2 seconds. Lungs: Respirations even, regular, and unlabored on room air. Lungs CTA bilaterally, no rhonchi, no rales, no wheezing, and no accessory muscle usage. Abdominal: soft, nontender to palpation, no guarding, no appreciable organomegaly Ext: ROM intact. No gross muscle atrophy, no edema, no contractures Neuro: Speech clear, face symmetrical and CN II-XII grossly intact with no noted focal neuro deficits Psych: Patient alert to person and place, confused to time and situation.. Appropriate and pleasant affect. Assessment and Plan of Care: Acute Metabolic encephalopathy Sick sinus syndrome status post Micra AV leadless pacemaker device placement. Cardiac tamponade status post pericardiocentesis Obstructive/cardiogenic shock, resolved Cardiac arrest with successful ROSC Recent history of infection surrounding cardiac pacemaker status post removal, debridement, and completion of IV antibiotics Hyperlipidemia GERD History of CVA/TIA without deficits Breast cancer status post bilateral mastectomy Fibromyalgia Patient admitted under cardiology team, reviewed documentation in chart. Pulmonology following, discussed case in depth with pensions retirement plan specialist and pulmonary ROLL[employer] LACER. Continue symptomatic care and pain management Encourage ambulation Encourage use of incentive spirometry 10-15 times daily while awake Continue cardiac medication regimen with aspirin 81 mg daily, atorvastatin 40 mg daily, carvedilol 6.25 mg twice daily, Plavix 75 mg daily, Entresto 24-26 mg tablets twice daily, and Aldactone 50 mg daily. Order placed for lidocaine patch per patient and family request for sternal/rib pain from CPR. Order placed for lactulose 30 g x 1 dose as patient, family, and RN report patient has not had a bowel movement since admission. Patient started on MiraLAX 17 g daily beginning tomorrow for bowel regimen. Order placed for K-Dur 40 mEq p.o. x 1 dose for potassium of 3.4 this morning. Data and imaging reviewed: Vital signs reviewed. Blood pressure 138/70, heart rate 75, respiratory rate 18, temp 97.7 F, and SpO2 of 96% on room air. Morning labs reviewed. CBC showing stable normocytic anemia with hemoglobin of 10.3. BMP unremarkable. Blood glucose 100. Magnesium 1.8. Liver profile showing slightly elevated ALT of 40 and hypoalbuminemia with albumin of 2.9. CODE STATUS: Full Code DVT prophylaxis: LEONILA albright and SCDs Anticipated discharge date: Pending clinical course, anticipate discharge in the next [address]: Home with family and homecare Patient was seen independently by Nurse Pracitioner. This document was prepared using [employer] dictation software. Please allow for errors in superintendent refuse disposal, while rare they do occur. Pranav Wilson NP rendered care for this patient independently, reviewed the findings and plan as documented in the note above. I did not physically speak with or examine the patient on this date. Objective - Vital Signs Vital signs: Vital Signs Temp 97.7 F 07/02/24 08:00 Pulse 75 07/02/24 08:00 Resp 18 07/02/24 08:00 BP 138/70 07/02/24 08:00 Pulse Ox 96 07/02/24 08:00 FiO2 Intake & Output 07/01/24 07/02/24 07/02/24 18:59 06:59 18:59 Intake Total 488 118 Balance 488 118 Weight 70.4 kg Intake: IV 10 Invasive Line 1 10 Oral 478 118 Other: Voiding Method Toilet Toilet # Voids 4 1 - Labs CBC & Chem 7: 07/02/24 07:32 07/02/24 07:32 Labs: Abnormal Lab Results - Last 24 Hours (Table) 07/02/24 Range/Units 07:32 RBC 3.58 L (3.80-5.40) m/uL Hgb 10.3 L (11.4-16.0) gm/dL Hct 32.3 L (34.0-46.0) %
--- NOTE | 2024-07-02 16:46 | P.DS ---
Providers Date of admission: 06/26/24 18:20 Attending physician: Jed Montoya Consults: 06/26/24 23:50 Consult Physician Routine Consulting Provider: Shannon Wang Consult Reason/Comments: cardiac tamponade Do you want consulting provider notified?: Already Contacted Consult Physician Routine Consulting Provider: iTa Bui Consult Reason/Comments: Resp failure Do you want consulting provider notified?: Already Contacted 06/30/24 18:58 Consult Physician Routine Consulting Provider: Jeannie Marshall Consult Reason/Comments: medical management Do you want consulting provider notified?: Already Contacted Primary care physician: Stated None Hospital Course: Patient is resting comfortably in bed. She is ambulating around the room, going to the bathroom She has a little bit of discomfort in the mid chest especially when she takes a deep breath No shortness of breath upon walking no orthopnea PND on examination Blood pressure 148/60 mmHg pulse rate in the 80s Normal heart sounds no murmurs Normal breath sounds reduced bilaterally Her inspiratory effort and strength have improved as documented on incentive spirometry Her recent memory is definitely improving Impression Paroxysmal AV block with left bundle branch block, intermittent sinus arrest symptomatic Dual-chamber pacemaker at [facility], status Postprocedure hematoma which was infected. Infection was confined to the pocket of the pacemaker under the skin I performed a lead extraction in her almost 6 weeks back with debridement of the pocket and granulation tissue of infective region Hematoma has resolved She was admitted for implantation of a leadless pacemaker Coronary sinus puncture during procedure with pericardial tamponade with about 300 cc of blood in the pericardium Status post successful pericardiocentesis Resolution of bleeding thereafter without need for open exploration CPR performed for several minutes at that time Extubated the next day successfully in the ICU Subsequently transferred to [facility]. Reduced LV systolic function with apical hypokinesis On Entresto carvedilol spironolactone and tolerating these medications very well Micra AV pacemaker functioning normally Original permanent pacemaker pocket has healed well. Hematoma has resolved, incision has healed well Plan Discharge home on Entresto 24/26 mg p.o. twice daily, carvedilol 6.25 mg twice daily, spironolactone 50 mg daily, atorvastatin 40 mg daily, aspirin and Plavix Patient has recurrent heartburn and if she continues to do so then she may stop aspirin and continue Plavix only She did have a TIA several months back at the time of her carotid endarterectomy but this is been over 3 months now Suggest Continue cardiac medications and maximize. Blood pressures are normal to high and therefore she may be able to tolerate higher dose of beta-blockers and Entresto Follow-up with Dr. Smith in 1 to 2 weeks Follow-up 2D echo and Doppler study in about [address] Smith Plan - Discharge Summary New Discharge Prescriptions: New carvediloL [Coreg] 6.25 mg PO BID #180 tablet Spironolactone 50 mg PO DAILY #90 tablet Sacubitril/Valsartan [Entresto 24 mg-26 mg Tablet] 1 each PO BID #180 tablet Discontinued DAPTOmycin [Cubicin] 250 mg IVPB Q24HR #14 each No Action Montelukast [Singulair] 10 mg PO HS Aspirin 81 mg PO HS Acetaminophen [Tylenol Arthritis] 1 tab PO DIRECTED PRN PRN Reason: Pain Unk Multi Vitamin 1 tab PO DAILY Unk Areds Vitamin 1 tab PO BID Pramipexole [Mirapex] 2 mg PO HS Clopidogrel [Plavix] 75 mg PO DAILY Atorvastatin [Lipitor] 40 mg PO HS Famotidine 20 mg PO BID Unk Vitamin D 1 tab PO DAILY Discharge Medication List Atorvastatin [Lipitor] 40 mg PO HS 05/19/24 [History] Clopidogrel [Plavix] 75 mg PO DAILY 05/19/24 [History] Montelukast [Singulair] 10 mg PO HS 05/19/24 [History] Pramipexole [Mirapex] 2 mg PO HS 05/19/24 [History] Acetaminophen [Tylenol Arthritis] 1 tab PO DIRECTED PRN 05/30/24 [History] Aspirin 81 mg PO HS 05/30/24 [History] Famotidine 20 mg PO BID 05/30/24 [History] Unk Areds Vitamin 1 tab PO BID 05/30/24 [History] Unk Multi Vitamin 1 tab PO DAILY 05/30/24 [History] Unk Vitamin D 1 tab PO DAILY 05/30/24 [History] Sacubitril/Valsartan [Entresto 24 mg-26 mg Tablet] 1 each PO BID #180 tablet 07/02/24 [Rx] Spironolactone 50 mg PO DAILY #90 tablet 07/02/24 [Rx] carvediloL [Coreg] 6.25 mg PO BID #180 tablet 07/02/24 [Rx] Follow up Appointment(s)/Referral(s): Gordo Smith MD [STAFF PHYSICIAN] - 1 Week (Please call to set up a follow-up appointment in 1-2 weeks.) [facility] [NON-STAFF] - Activity/Diet/Wound Care/Special Instructions: New medications Entresto 24/26 mg p.o. twice daily Carvedilol 6.25 mg twice daily Spironolactone 50 mg p.o. daily Continue atorvastatin 40 mg daily Continue 81 mg p.o. daily of aspirin Continue Plavix 75 mg p.o. daily Discharge Disposition: HOME SELF-CARE
--- NOTE | 2024-07-05 10:53 | XR ---
Patient: Lu Ray Ordering Physician: Unknown, Unknown ID: [id number] Phone, Pager: Phone: N/A Pager: N/A : 1945 Age/Gender: 78Y, O Primary Location: N/A Procedure: cxr 1v Study Date: 06/28/2024 5:14:34 AM EXAMINATION TYPE: XR chest 1V DATE OF EXAM: 06/28/2024 COMPARISON: NONE HISTORY: 78-year-old female shortness of breath, ICU exam TECHNIQUE: Single frontal view of the chest is obtained. FINDINGS: Partially visualized reverse right shoulder requested. Low lung volumes. Diffuse interstit ial and patchy opacities. Small right greater than left pleural effusions. There appears to be a cath eter projecting at the left base. Right PICC tip at the cavoatrial junction. Heart borderline in size . Loop recorder device on the left. IMPRESSION: 1. Hypoventilatory changes with interstitial pulmonary edema and small pleural effusions, right great er than left. 2. A catheter projects at the left base. Either pleural or pericardial catheter. Clinically correlate .
--- NOTE | 2024-07-23 09:02 | XR ---
HomarLu ID: MPHTERBERCK : 1945 EXAMINATION TYPE: XR chest 1V DATE OF EXAM: 06/27/2024 COMPARISON: 06/26/2024 HISTORY: 78-year-old female ICU follow-up shortness of breath TECHNIQUE: Single frontal view of the chest is obtained. FINDINGS: ET and NG tubes are satisfactory. Right PICC tip at the upper right atrium. An additional catheter is located along the lower thoracic midline, possible pericardial catheter. Small loop recor rayshawn device projecting over the left side of the heart. Some strandy atelectasis at the left base. Hea rt borderline in size. Perihilar interstitial opacities show considerable improvement. Reverse right shoulder to plasty partially visualized. Cholecystectomy clips. IMPRESSION: 1. Resolving pulmonary edema. 2. Some residual strandy atelectasis remains at the left base. 3. Query pericardial catheter versus left posterior basilar pleural catheter.
--- NOTE | 2024-07-23 10:32 | XR ---
Patient: Lu Ray Ordering Physician: Unknown, Unknown ID: [id number] Phone, Pager: Phone: N/A Pager: N/A : 1945 Age/Gender: 78Y, O Primary Location: N/A Procedure: cxr 1v Study Date: 06/28/2024 5:14:34 AM EXAMINATION TYPE: XR chest 1V DATE OF EXAM: 06/29/2024 COMPARISON: 06/28/2024 HISTORY: 78-year-old female ICU follow-up, shortness of breath TECHNIQUE: Single frontal view of the chest is obtained. FINDINGS: Partially visualized worse right shoulder arthroplasty. Loop recorder device projecting ov er the left side of the heart. Heart mildly enlarged. Diffuse interstitial densities. Retrocardiac an d left basilar opacity. Hazy density projecting to the right midlung. Right PICC tip at the lower SVC . IMPRESSION: Ongoing CHF with pulmonary vascular congestion. Small to moderate right effusion may be increased. Similar small left effusion with prominent adjacent atelectasis and/or consolidation.
--- NOTE | 2024-07-23 14:55 | CA ---
Transthoracic Echo Report Name: Lu Ray Age: 78 Gender: F : 1945 Exam Date: 06/26/2024 19:20 Exam Location: [facility] Ht (in): Wt (lb): Ordering Physician: Attending/Referring Phys: Relay Checker Lauryn Perez RDCS Procedure CPT: Indications: Cardiac Hx: Technical Quality: Fair Contrast 1: Total Dose (mL): Contrast 2: Total Dose (mL): MEASUREMENTS (Male / Female) Normal Values FINDINGS Left Ventricle Anteroapical, anteroseptal and anterolateral akinesis, ejection fraction 25-30% Right Ventricle Right Atrium Left Atrium Mitral Valve Aortic Valve Tricuspid Valve Pulmonic Valve Pericardium Small pericardial effusion. Aorta CONCLUSIONS 1. Severely impaired left ventricular systolic function with segmental wall motion abnormality 2. Small pericardial effusion Previewed by: Dr. Nuris Pablo MD (Electronically Signed) Final Date: 27 June 2024 07:35
--- NOTE | 2024-07-24 10:34 | XR ---
Patient: Lu Graf Ordering Physician: Unknown, Unknown ID: [id number] Phone, Pager: Phone: N/ A Pager: N/A : 1945 Age/Gender: 78Y, O Primary Location: N/A Procedure: XR CXR 1VW Study Date : 06/26/2024 9:02:00 PM EXAMINATION TYPE: XR chest 1V DATE OF EXAM: 06/26/2024 9:47 PM CLINICAL INDICATION: Intubation COMPARISON: None TECHNIQUE: XR chest 1V Frontal view of the chest. FINDINGS: Lungs/Pleura: There is no evidence of pleural effusion, focal consolidation, or pneumothorax. Pulmonary vascularity: Unremarkable. Heart/mediastinum: Cardiomediastinal silhouette is unremarkable. Musculoskeletal: No acute osseous pathology. Right shoulder arthroplasty. Other findings: None Lines/Tubes: Endotracheal tube with distal tip 5.0 cm above the roscoe. Nasogastric tube with its distal tip and side-port projecting under the diaphragm. Tubing projecting over the heart possibly pericardial window. IMPRESSION: Endotracheal tube 5.0 cm above the roscoe consider advancement of 3 cm for optimal placement. Nasogastric tube in appropriate position.
--- NOTE | 2024-07-24 12:22 | CE ---
CARDIAC ELECTROPHYSIOLOGY REPORT Additional details about the Micra implant. Please see full dictation separately for the entire procedure. Lu Ray underwent implantation of Micra device and she was brought to the EP lab in a fasting state. Written informed consent was obtained prior to the procedure. IV antibiotics administered. Venous sheaths placed in the right femoral vein. TVP placed via the left femoral vein. The Micra sheath was then placed in the right atrium. The Micra device was placed in the right ventricle on the septum. Position was confirmed with ventriculography and the device was successfully implanted. Excellent thresholds were obtained. Threshold 0.5 V at 0.24 milliseconds. R-waves 17 mV and pacing impedance 1080 ohms. This was then confirmed on fluoroscopy and thereafter the catheters were cut and the sheath was removed and repeat thresholds are excellent. Impedances were stable, and on cine fluoroscopy, excellent stability was documented in the TANZANIAN and MISHRA view. The patient did have a coronary sinus perforation and she was resuscitated from this. Following resuscitation, the Micra implant was completed once she was stabilized. MMODL / IJN: [id number] /
--- NOTE | 2024-07-24 12:22 | CE ---
CARDIAC ELECTROPHYSIOLOGY REPORT Lu Ray is an 78-year-old female, who underwent permanent pacemaker implantation by Dr. Devika Arnett, which was complicated by infection. This was extracted by me last month. She was on IV antibiotics, and she was brought in for implantation of a Micra device. She has underlying left bundle branch block, intermittent complete heart block, and occasional sinus pauses which is symptomatic. Her infection has settled down after IV antibiotics. She has not had any signs of infection since then. The patient is brought to the EP lab in a fasting state. Written informed consent was obtained prior to the procedure. IV antibiotics were administered. The venous access was obtained in the right groin. Perclose sutures were applied and later this venous site was completely closed with Perclose successfully at the end of the procedure. The Micra sheath was prepped. The Micra device was placed in the sheath and placed in the right atrium and passed into the right ventricle. After passing the tricuspid valve, clockwise rotation was performed in the MISHRA position to reach the septum. Then, an injection of dye was given. This Micra device was actually in the coronary sinus, and there was a trace amount of dye in the pericardial space. However, the patient was completely asymptomatic. The Micra device was removed. We waited for a while to see if there would be any hemodynamic compromise, and there was none, and therefore, we continued with the procedure and placed the Micra device in the RV septum. However, at that time, the patient's blood pressure dropped and an urgent pericardiocentesis was performed. Pericardiocentesis was performed successfully and about 300 cc of blood was removed. The patient responded immediately, but she had to be given CPR at that time. Prior to that, we had placed a TVP before implanting a Micra device. A venous sheath was placed from the left femoral vein and a quadripolar catheter was positioned in the right ventricle. Following that, the Micra device was successfully placed on the septum and this was confirmed. That was when her blood pressure dropped and fluoroscopy in the URDU view revealed a double shadow consistent with pericardial effusion and pericardiocentesis successfully performed. At that time, ACLS protocol was followed. A brief CPR was given, but she responded very quickly with immediate recovery. She was treated with blood products, bicarbonate, calcium and later, her blood pressure dropped once again, but there was very little blood in the pericardial space. This blood of about 100 cc was readministered back into the patient immediately as it was drawn. She responded to IV bicarbonate and IV calcium. An arterial line was then placed in the left femoral artery and a 5-Leb[place] sheath was placed and blood pressure monitoring was performed. 2D echo did not reveal any pericardial effusion for the next 3-1/2 hours of monitoring and the whole procedure took about 4.5 hours, and I ibrahima about 100 cc of blood subsequently, which was returned to the patient. Her blood pressure did drop once again, but she responded immediately to IV bicarbonate. Dr. Wang, the CT surgeon was in attendance and since there was no evidence for any pericardial effusion and it was simply a stool leak and the fact that the patient was pointing to IV bicarbonate and pressors, there was no indication for open exploration of the pericardium. The patient was then transferred to the ICU. PROCEDURES PERFORMED: 1. Micra AV pacemaker implantation, successful. 2. Pericardiocentesis. 3. Arterial line placement. 4. Transvenous temporary pacemaker placement. MMODL / IJN: [id number] /
== END 2024-07-02 15:27 | disposition home or self-care (01) | DRG 981 ==
LOC: CATHEP 15:00 → 3SCARD 18:20
PROVIDERS: ADMIT Internal Medicine Clinical Cardiac Electrophysiology; ATTEND Internal Medicine Clinical Cardiac Electrophysiology
PROC: 5A12012 Performance of Cardiac Output, Single, Manual (ICD-10-PCS; principal; 2024-06-26 15:30)
PROC: 4A133J1 Monitoring of Arterial Pulse, Peripheral, Percutaneous Approach (ICD-10-PCS; principal; 2024-06-26 15:30)
PROC: 5A1935Z Respiratory Ventilation, Less than 24 Consecutive Hours (ICD-10-PCS; principal; 2024-06-26 15:30)
PROC: X2HK3V9 Insertion of Dual-Chamber Intracardiac Pacemaker into Right Ventricle, Percutaneous Approach, New Technology Group 9 (ICD-10-PCS; principal; 2024-06-26 15:30)
PROC: 03HY32Z Insertion of Monitoring Device into Upper Artery, Percutaneous Approach (ICD-10-PCS; principal; 2024-06-26 15:30)
PROC: 4A133B1 Monitoring of Arterial Pressure, Peripheral, Percutaneous Approach (ICD-10-PCS; principal; 2024-06-26 15:30)
PROC: 0BH17EZ Insertion of Endotracheal Airway into Trachea, Via Natural or Artificial Opening (ICD-10-PCS; principal; 2024-06-26 15:30)
PROC: 0W9D3ZZ Drainage of Pericardial Cavity, Percutaneous Approach (ICD-10-PCS; principal; 2024-06-26 15:30)
DX: I97.51 Accidental puncture and laceration of a circulatory system organ or structure during a circulatory system procedure (principal); G93.41 Metabolic encephalopathy; I46.9 Cardiac arrest, cause unspecified; J96.01 Acute respiratory failure with hypoxia; R57.0 Cardiogenic shock; I44.2 Atrioventricular block, complete; I31.39 Other pericardial effusion (noninflammatory); I31.4 Cardiac tamponade; I44.7 Left bundle-branch block, unspecified; E78.5 Hyperlipidemia, unspecified; E87.70 Fluid overload, unspecified; I49.5 Sick sinus syndrome; K21.9 Gastro-esophageal reflux disease without esophagitis; M79.7 Fibromyalgia; Z75.1 Person awaiting admission to adequate facility elsewhere; Z86.73 Personal history of transient ischemic attack (TIA), and cerebral infarction without residual deficits; Z79.02 Long term (current) use of antithrombotics/antiplatelets; Z79.82 Long term (current) use of aspirin; Z79.899 Other long term (current) drug therapy; Z85.3 Personal history of malignant neoplasm of breast; Z90.13 Acquired absence of bilateral breasts and nipples; Z95.0 Presence of cardiac pacemaker
CPT/HCPCS: 36600; 94002; 94003; 94640

== ENCOUNTER → 2024-06-26 | Day surgery (SDC) | payer MEDICARE, OTHER ==
[~2024-06-26] MED LIST changes: +HEPARIN SODIUM,PORCINE 5,000 UNIT/ML 1 ML VIAL ONE; +KETAMINE HCL IN 0.9 % NACL 50 MG/5 ML SYRINGE ONE; +LEVOFLOXACIN 500MG-D5W PMX 500 MG/100 ML BAG IVPB ONE; -LIDOCAINE 1% (10MG/ML) FOR IV START INTRADERMA PRN; +LIDOCAINE 1% INJ 10MG/ML (20 ML MDV) ONE; +ROPIVACAINE 5MG/ML 20ML VIAL ONE; +SODIUM CHLORIDE 0.9% 1,000 ML BAG ONE; +SODIUM CHLORIDE 0.9% 50 ML BAG ONE; +ceFAZolin 1,000 MG VIAL ONE; +diphenhydrAMINE 50 MG/ML 1 ML VIAL ONE
[2024-06-26] MEDS: IOPAMIDOL-370 100ML BTL INJ ONE (18:40)
== END ==
LOC: CATHCVL 16:04
PROVIDERS: ATTEND Internal Medicine Clinical Cardiac Electrophysiology
DX: R94.39 Abnormal result of other cardiovascular function study (principal)